=== PATIENT | female | born 1955 | race American Indian/Alaskan Native ===

== ENCOUNTER 2016-11-29 20:27 | Inpatient (IN) | payer MEDICARE, BC ==
[2016-11-29 20:27] VITALS: BMI 34.8
--- NOTE | 2016-11-29 21:10 | ED PDOC ---
Arrival/HPI - General Chief Complaint: Trauma Time Seen by Provider: 11/29/16 20:35 - History of Present Illness Narrative History of Present Illness (Text): 61 year old female with a past medical history of hypertension, dyslipidemia, stroke with right hemiparesis on Coumadin (5 mg a day) who [place] via [place] [facility] out of bed. She was sitting on the edge of the bed, reaching for her shoes and tumbled to the ground and fell on her right arm and face planted. She denies any LOC, headache, laceration, or new neuorologic deficits. She complains of pain in her right arm and right frontal temporal region, severity scaled 9/10 in severity, not taken anything for itdenies any headache, nausea, or vomiting after the fall. She denies any visual disturbances or visible lesions. 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) - HEENT Hx HEENT Disorder: No - Renal Hx Renal Disorder: No - Endocrine/Metabolic Hx Endocrine Disorders: No - Hematological/Oncological Hx Blood Transfusions: No Hx Blood Transfusion Reaction: No - Integumentary Hx Dermatological Disorder: No - Musculoskeletal/Rheumatological Hx Musculoskeletal Disorders: Yes - Gastrointestinal Hx Gastrointestinal Disorders: No (constipation uses laxatives) - Genitourinary/Gynecological Hx Genitourinary Disorders: No Other/Comment: uses a bedside commode at home and the bathroom, but uses pads on her bed at night because it takes her a long time to get up and her leg brace on, sometimes she doesn't make it to the bathroom - Psychiatric Hx Emotional Abuse: No Hx Physical Abuse: No Hx Substance Use: No - Surgical History Hx Cholecystectomy: Yes Hx Hysterectomy: Yes - Anesthesia Hx Anesthesia Reactions: No Hx Malignant Hyperthermia: No - Suicidal Assessment Feels Threatened In Home Enviroment: No Family/Social History Family/Social History: No Known Family HX, Unknown Family HX Smoking Status: Never Smoked Hx Alcohol Use: No Hx Substance Use: No Hx Substance Use Treatment: No Allergies/Home Meds Allergies/Adverse Reactions: Allergies Penicillins Allergy (Severe, Verified 04/28/15 11:13) ANAPHYLAXIS Home Medications: Home Meds Medication Instructions Recorded Confirmed Calcium Carbonate [Caltrate 600] 600 mg PO DAILY 07/13/11 11/30/16 Celecoxib [CeleBREX] 200 mg PO DAILY 12/06/15 11/30/16 Clopidogrel [Plavix] 75 mg PO DAILY 12/06/15 11/30/16 Digoxin [Lanoxin] 0.25 mg PO DAILY 12/06/15 11/30/16 Diltiazem HCl [Tiazac] 120 mg PO DAILY 12/06/15 11/30/16 Gabapentin [Neurontin] 600 mg PO QID 12/06/15 11/30/16 Metoprolol Succinate [Metoprolol 100 mg PO DAILY 12/06/15 11/30/16 Succinate Xl] Oxycodone HCl [Oxycontin] 30 mg PO Q8 12/06/15 11/30/16 Phenytoin Sodium Extended 100 mg PO TID 12/06/15 11/30/16 [Phenytoin Sodium Extended] Aspirin [Aspirin Chewable] 81 mg PO DAILY 11/30/16 11/30/16 Cranberry Fruit Extract/Vit C [Azo 1 each PO DAILY 11/30/16 11/30/16 Cranberry Softgel] Docusate Sodium [Stool Softener] 50 mg PO DAILY 11/30/16 11/30/16 Folic Acid 1 mg PO DAILY 11/30/16 11/30/16 Furosemide [Lasix] 40 mg PO DAILY 11/30/16 11/30/16 Multivitamin/Iron/Folic Acid 1 each PO DAILY 11/30/16 11/30/16 [Centrum Women Tablet] Naloxegol Oxalate [Movantik] 25 mg PO DAILY 11/30/16 11/30/16 Oxycodone HCl/Acetaminophen 1 each PO Q6 PRN 11/30/16 11/30/16 [Percocet 10-325 mg Tablet] Promethazine [Phenergan Syrup] 1 tbs PO TID PRN 11/30/16 11/30/16 Warfarin [Coumadin] 0.5 mg PO DAILY 11/30/16 11/30/16 Warfarin [Coumadin] 4 mg PO DAILY 11/30/16 11/30/16 Review of Systems - Review of Systems Constitutional: absent: Fatigue, Weight Change, Fevers Eyes: absent: Vision Changes, Photophobia, Eye Pain ENT: absent: Hearing Changes, Sore Throat Respiratory: SOB. absent: Cough, Sputum Cardiovascular: absent: Chest Pain, Palpitations Gastrointestinal: absent: Nausea, Vomiting Genitourinary Female: absent: Dysuria Musculoskeletal: Other (right humeral pain, right forearm pain, right hip pain) Skin: absent: Rash, Skin Lesions, Laceration Neurological: absent: Headache, Dizziness, Focal Weakness, Speech Changes Endocrine: absent: Diaphoresis, Polyuria, Polydipsia Hemo/Lymphatic: absent: Easy Bleeding, Easy Bruising Psychiatric: absent: Anxiety, Depression Physical Exam Vital Signs Temp Pulse Resp BP Pulse Ox 11/30/16 11:22 63 125/69 11/30/16 11:03 125/69 11/30/16 11:00 63 19 125/69 94 L 11/30/16 09:53 60 19 144/56 L 91 L 11/30/16 08:00 59 L 16 118/65 95 11/30/16 04:00 85 16 122/76 99 11/30/16 00:26 64 18 122/71 98 11/29/16 21:15 98.1 F 64 17 132/76 96 Temperature: Afebrile Blood Pressure: Normal Pulse: Regular Respiratory Rate: Normal Appearance: Positive for: Well-Appearing, Non-Toxic Pain Distress: Moderate Mental Status: Positive for: Alert and Oriented X 3 - Systems Exam Head: Present: Atraumatic, Normocephalic Pupils: Present: PERRL Extroacular Muscles: Present: EOMI Conjunctiva: Present: Normal Mouth: Present: Moist Mucous Membranes Pharnyx: Present: Normal, Other (uvula and tongue midline without fasciculations ) Neck: Present: Paraspinal Tenderness, Trachea Midline. No: MIDLINE TENDERNESS Respiratory/Chest: Present: Good Air Exchange, Wheezes. No: Respiratory Distress, Accessory Muscle Use Cardiovascular: Present: Regular Rate and Rhythm, Normal S1, S2 Abdomen: Present: Normal Bowel Sounds. No: Tenderness, Distention Back: Present: Normal Inspection Upper Extremity: Present: Other (right arm contracture, right humerus extremely tender to palpation and limited ROM testing due to pain) Lower Extremity: Present: Other (right leg in contracture) Neurological: Present: CN II-XII Intact, Speech Normal Skin: Present: Warm, Dry, Normal Color Psychiatric: Present: Alert, Oriented x 3, Normal Insight, Normal Concentration Medical Decision Making ED Course and Treatment: Patient received from EMS. Patient placed in right arm sling. CT head/cervical spine without contrast, right humerus, right forearm, and right hip and pelvis radiographs ordered. 11/29/16 22:06 CT head without contrast FINDINGS: Brain: No acute intracranial hemorrhage. Decreased attenuation is identified within the distribution of the left middle cerebral artery, findings consistent with prior cerebral infarction, unchanged from 01/27/2015 examination. Otherwise age-appropriate periventricular white matter disease. No edema. Ventricles: Extra-vacuo enlargement of the adjacent left lateral ventricle. Otherwise age-appropriate ventriculomegaly. Bones: No acute displaced fracture. Sinuses: Air-fluid level within the left sphenoid sinus. Mucoperiosteal thickening within the bilateral ethmoid sinuses. Mastoid air cells: Unremarkable as visualized. No mastoid effusion. IMPRESSION: No acute intracranial hemorrhage, or suspicious mass effect. Findings consistent with prior cerebral infarction. Inflammatory sinus disease. 11/30/16 00:42 CT cervical spine without contrast: FINDINGS: Vertebrae: No acute fracture. Alignment: Straightening and slight reversal of the normal curvature of the cervical spine, possibly muscular in origin. Discs/spinal canal/neural foramina: No acute findings. Soft tissues: Symmetric Lung apices: The visualized lung apices are clear. IMPRESSION: No acute fracture. Radiographs of the right humerus, right forearm, right hip and pelvis were negative for acute fracture. CT of right extremity: FINDINGS: There are extensive arthritic and degenerative changes in the right shoulder. Osseous hypertrophy with osteophyte and spur formation are present in the humeral head. There are no fractures of the humerus identified. There is extensive heterogeneity and irregularity of the glenoid surface with cyst formation. There is discontinuity of the inferior most aspect of the glenoid however there appears to be callus formation suggesting this is chronic. The visualized portions of the clavicle are intact. There are no rib fractures identified. Consolidation in the right lung incompletely imaged. IMPRESSION: Extensive arthritic and degenerative changes as described above however no definite acute fracture identified. If there is concern for tendon injury, followup MRI could be performed. 11/30/16 03:[address] Keaton Rick. Dr. Rick agrees with obtaining a physical therapy consult. 11/30/16 06:32 - Lab Interpretations Lab Results: 11/29/16 23:12 11/29/16 23:12 Lab Results 11/30/16 07:00: Digoxin 0.7 L 11/30/16 07:00: NT-Pro-B Natriuret Pep 3790 H 11/29/16 23:12: Sodium 141, Potassium 4.3, Chloride 106, Carbon Dioxide 27, Anion Gap 12, BUN 26 H, Creatinine 0.9, Est GFR ( Amer) > 60, Est GFR ( Non-Af Amer) > 60, Random Glucose 104, Calcium 8.4, Total Bilirubin 0.3, AST 32 , ALT 34, Alkaline Phosphatase 212 H, Total Protein 7.5, Albumin 3.9, Globulin 3.6, Albumin/Globulin Ratio 1.1 11/29/16 23:12: WBC 6.7 D, RBC 4.12, Hgb 11.4 L, Hct 35.6 L, MCV 86.4, MCH 27.7 , MCHC 32.0, RDW 16.9 H, Plt Count 210, MPV 9.9, Gran % 69.9 H, Lymph % (Auto) 21.6 L, [place] % (Auto) 7.5 H, Eos % (Auto) 0.9 L, Baso % (Auto) 0.1, Gran # 4.69 , Lymph # 1.5, [place] # 0.5, Eos # 0.1, Baso # 0.01 11/29/16 23:12: PT 34.7 H*, INR 3.21 H, APTT 52.0 H - RAD Interpretation Radiology Orders: 11/29/16 21:21 HUMERUS RIGHT [RAD] Stat 11/29/16 21:22 FOREARM RIGHT [RAD] Stat Hip Right [HIP MIN 2V W/ PELVIS RT] [RAD] Stat 11/29/16 21:24 CERVICAL SPINE W/O CONTRAST [CT] Stat HEAD W/O CONTRAST [CT] Stat 11/30/16 01:02 SHOULDER RIGHT [RAD] Stat 11/30/16 01:58 EXT UPPER W/O CONTRAST RIGHT [CT] Stat 11/30/16 03:24 X-RAY [CHEST PORTABLE] [RAD] Stat - Medication Orders Current Medication Orders: Atorvastatin Calcium (Lipitor) 10 mg PO DAILY [facility] Last Admin: 12/01/16 09:21 Dose: 10 mg Calcium Carbonate (Caltrate) 600 mg PO DAILY [facility] Last Admin: 12/01/16 09:21 Dose: 600 mg Clopidogrel Bisulfate (Plavix) 75 mg PO DAILY [facility] Last Admin: 12/01/16 09:20 Dose: 75 mg Digoxin (Lanoxin) 0.25 mg PO DAILY [facility] Last Admin: 12/01/16 09:21 Dose: 0.25 mg MAR Apical Pulse Rate Document 12/01/16 09:21 [facility] [place]Rec: 12/01/16 09:21 [id number] Apical Pulse Rate Apical Pulse Rate (60-90 beats/min) 60 Diltiazem HCl (Cardizem Cd) 120 mg PO DAILY [facility] Last Admin: 12/01/16 09:20 Dose: 120 mg MAR Pulse and Blood Pressure Document 12/01/16 09:20 [facility] [place]Rec: 12/01/16 09:20 [id number]) Blood Pressure Blood Pressure (100/60-150/90) 135/76 Furosemide (Lasix) 40 mg IVP DAILY [facility] Last Admin: 12/01/16 09:22 Dose: 40 mg MAR Blood Pressure Document 12/01/16 09:22 [facility] [place]Rec: 12/01/16 09:22 [id number] Blood Pressure Blood Pressure (100/60-150/90) 135/76 IVP Administration Document 12/01/16 09:22 [facility] [place]Rec: 12/01/16 09:22 [id number] Charges for Administration # of IVP Administrations 1 Gabapentin (Neurontin) 600 mg PO QID [facility] PRN Reason: Protocol Last Admin: 12/01/16 09:19 Dose: 600 mg Behavioural Document 12/01/16 09:19 [facility] [place]Rec: 12/01/16 09:19 [id number] Maintenance Maintenance Dose Yes Nonmedicinal Nonmedicinal Interventions Therapeutic Communication Metoprolol Succinate (Toprol Xl) 100 mg PO DAILY [facility] Last Admin: 12/01/16 09:20 Dose: 100 mg MAR Pulse and Blood Pressure Document 12/01/16 09:20 [facility] [place]Rec: 12/01/16 09:20 [id number] Blood Pressure Blood Pressure (100/60-150/90) 135/76 Non-Formulary Medication (Celecoxib [Celebrex]) 200 mg PO BID [facility] Last Admin: 12/01/16 09:21 Dose: Phenytoin Sodium (Dilantin) 100 mg PO TID [facility] Last Admin: 12/01/16 09:20 Dose: 100 mg Tramadol HCl (Ultram) 50 mg PO Q8 PRN PRN Reason: Pain, severe (8-10) Last Admin: 12/01/16 09:20 Dose: 50 mg MAR Pain Assessment Document 12/01/16 09:20 [facility] [place]Rec: 12/01/16 09:20 [id number] Pain Reassessment Is this a pain reassessment? No Sleep Is patient sleeping during reassessment? No Presence of Pain Presence of Pain Yes Pain Scale Used Pain Scale Used Numeric Location Pain Location Body Site Generalized Description Intensity of Pain at present 6 Pain Behavior Moaning Guarding Aggravating Factors None Alleviating Factors/Management Medication Techniques Alleviating Factors Medication Warfarin Sodium (Coumadin) 3 mg PO 1800 [facility] PRN Reason: Protocol Last Admin: 11/30/16 17:56 Dose: 3 mg Discontinued Medications Albuterol/Ipratropium (Duoneb 3 Mg/0.5 Mg (3 Ml) Ud) 3 ml IH STAT STA Stop: 11/29/16 21:27 Last Admin: 11/29/16 22:26 Dose: 3 ml Hydromorphone HCl (Dilaudid) 1 mg IVP STAT STA Stop: 11/29/16 21:19 Last Admin: 11/29/16 22:26 Dose: 1 mg MAR Pain Assessment Document 11/29/16 22:26 [facility] (Rec: 11/29/16 22:26 [id number] Pain Reassessment Is this a pain reassessment? Yes Sleep Is patient sleeping during reassessment? No Presence of Pain Presence of Pain Yes Pain Scale Used Pain Scale Used Numeric Location Left, Right or Bilateral Right Pain Location Body Site Arm Hip Description Description Constant Intensity of Pain at present 10 IVP Administration Document 11/29/16 22:26 [facility] (Rec: 11/29/16 22:26 [id number]) Charges for Administration # of IVP Administrations 1 Ketorolac Tromethamine (Toradol) 15 mg IVP STAT STA Stop: 11/30/16 20:48 Last Admin: 11/30/16 21:12 Dose: 15 mg MAR Pain Assessment Document 11/30/16 21:12 [facility] (Rec: 11/30/16 21:13 [id number] Pain Reassessment Is this a pain reassessment? Yes Sleep Is patient sleeping during reassessment? No Presence of Pain Presence of Pain Yes Pain Scale Used Pain Scale Used Numeric Location Left, Right or Bilateral Right Pain Location Body Site Arm Description Description Intermittent Intensity of Pain at present 7 Pain Behavior Moaning Facial Grimacing Aggravating Factors Changing Position Alleviating Factors/Management Medication Techniques Alleviating Factors Medication Effects of Pain discomfort IVP Administration Document 11/30/16 21:12 [facility] (Rec: 11/30/16 21:13 [id number] Charges for Administration # of IVP Administrations 1 Ondansetron HCl (Zofran Inj) 4 mg IVP STAT STA Stop: 11/29/16 21:29 Last Admin: 11/29/16 22:26 Dose: 4 mg IVP Administration Document 11/29/16 22:26 [facility] (Rec: 11/29/16 22:26 [facility] [id number]) Charges for Administration # of IVP Administrations 1 Pneumococcal Polyvalent Vaccine (Pneumovax 23 Vaccine) 0.5 ml IM .ONCE ONE Stop: 11/30/16 14:18 Warfarin Sodium (Coumadin) 3 mg PO DAILY [facility] PRN Reason: Protocol Disposition/Present on Arrival - Present on Arrival Any Indicators Present on Arrival: Yes History of DVT/PE: Yes History of Uncontrolled Diabetes: No Urinary Catheter: No History of Decub. Ulcer: No History Surgical Site Infection Following: None - Disposition Have Diagnosis and Disposition been Completed?: Yes Diagnosis: Decreased ambulation status Disposition: HOSPITALIZED Disposition Time: 05:00 Patient Problems: Current Active Problems Problem Status Onset Decreased ambulation status Acute Condition: FAIR
[2016-11-29] MEDS ORDERED: HYDROmorphone 1 mg/ml ISec IVP STA (21:18)
[2016-11-29] MEDS ORDERED: Albuterol-Ipratrop 3 mg / 0.5 (3 ml) UD IH STA (21:26)
[2016-11-29 23:20] LABS: BASO # 0.01 K/mm3 (0.0-2.0); BASO % 0.1 % (0.0-3.0); EOS # 0.1 (0.0-0.7); EOS % 0.9 % (1.5-5.0); GRAN # 4.69 (1.4-6.5); GRAN % 69.9 % (50.0-68.0); HEMATOCRIT 35.6 % (36.0-48.0); LYMPH # 1.5 (1.2-3.4); LYMPH % 21.6 % (22.0-35.0); MEAN CELL VOLUME 86.4 fl (80.0-105.0); MEAN CORPUSCULAR HEMOGLOBIN 27.7 pg (25.0-35.0); MEAN PLATELET VOLUME 9.9 fl (7.0-11.0); MONO # 0.5 (0.1-0.6); MONO % 7.5 % (1.0-6.0); RED CELL DISTRIBUTION WIDTH 16.9 % (11.5-14.5); WHITE BLOOD COUNT 6.7 10^3/ul (4.5-11.0)
[2016-11-29 23:26] LABS: ALB/GLOB RATIO 1.1 (1.1-1.8); ALKALINE PHOSPHATASE 212 U/L (38-126); ALT/SGPT 34 U/L (7-56); AST/SGOT 32 U/L (14-36); BILIRUBIN,TOTAL 0.3 mg/dL (0.2-1.3); BLOOD UREA NITROGEN 26 mg/dL (7-21); CALCIUM 8.4 mg/dL (8.4-10.5); CARBON DIOXIDE 27 mmol/L (21-33); CHLORIDE 106 mmol/L (98-107); GFR AFRICAN-AMERICAN > 60; GLUCOSE,RANDOM 104 mg/dL (70-110); POTASSIUM 4.3 mmol/L (3.6-5.0); SODIUM 141 mmol/L (132-148); TOTAL PROTEIN 7.5 g/dL (5.8-8.3)
[2016-11-29 23:31] LABS: INR 3.21 (0.93-1.08)
--- NOTE | 2016-11-30 00:04 | CT ---
EXAM: CT Cervical Spine Without Intravenous Contrast CLINICAL HISTORY: 61 years old, female; Injury or trauma; Fall; Initial encounter; Concussion /head injury; Additional info: Trauma/pain TECHNIQUE: Axial computed tomography images of the cervical spine without intravenous contrast. All CT scans at this facility use one or more dose reduction techniques, viz.: automated exposure control; ma/kV adjustment per patient size (including targeted exams where dose is matched to indication; i.e. head); or iterative reconstruction technique. Coronal and sagittal reformatted images were created and reviewed. COMPARISON: No relevant prior studies available. FINDINGS: Vertebrae: No acute fracture. Alignment: Straightening and slight reversal of the normal curvature of the cervical spine, possibly muscular in origin. Discs/spinal canal/neural foramina: No acute findings. Soft tissues: Symmetric Lung apices: The visualized lung apices are clear. IMPRESSION: No acute fracture.
--- NOTE | 2016-11-30 00:07 | CT ---
EXAM: CT Head Without Intravenous Contrast CLINICAL HISTORY: 61 years old, female; Injury or trauma; Fall; Initial encounter; Concussion / head injury; Additional info: Fall/trauma TECHNIQUE: Axial computed tomography images of the head/brain without intravenous contrast. All CT scans at this facility use one or more dose reduction techniques, viz.: automated exposure control; ma/kV adjustment per patient size (including targeted exams where dose is matched to indication; i.e. head); or iterative reconstruction technique. COMPARISON: CT - HEAD W/O CONTRAST 01/27/2015 5:42:17 AM FINDINGS: Brain: No acute intracranial hemorrhage. Decreased attenuation is identified within the distribution of the left middle cerebral artery, findings consistent with prior cerebral infarction, unchanged from 01/27/2015 examination. Otherwise age-appropriate periventricular white matter disease. No edema. Ventricles: Extra-vacuo enlargement of the adjacent left lateral ventricle. Otherwise age-appropriate ventriculomegaly. Bones: No acute displaced fracture. Sinuses: Air-fluid level within the left sphenoid sinus. Mucoperiosteal thickening within the bilateral ethmoid sinuses. Mastoid air cells: Unremarkable as visualized. No mastoid effusion. IMPRESSION: No acute intracranial hemorrhage, or suspicious mass effect. Findings consistent with prior cerebral infarction. Inflammatory sinus disease.
--- NOTE | 2016-11-30 03:21 | CT ---
EXAM: CT Right Upper Extremity Without Intravenous Contrast, Shoulder EXAM DATE/TIME: 11/30/2016 1:58 AM CLINICAL HISTORY: 61 years old, female; Injury or trauma; Fall; Initial encounter; Sprain or strain; Shoulder; Right; Additional info: Right shoulder TECHNIQUE: Axial computed tomography images of the right shoulder without intravenous contrast. All CT scans at this facility use one or more dose reduction techniques, viz.: automated exposure control; ma/kV adjustment per patient size (including targeted exams where dose is matched to indication; i.e. head); or iterative reconstruction technique. Coronal and sagittal reformatted images were created and reviewed. COMPARISON: DX - FOREARM RIGHT 11/29/2016 11:49:24 PM FINDINGS: There are extensive arthritic and degenerative changes in the right shoulder. Osseous hypertrophy with osteophyte and spur formation are present in the humeral head. There are no fractures of the humerus identified. There is extensive heterogeneity and irregularity of the glenoid surface with cyst formation. There is discontinuity of the inferior most aspect of the glenoid however there appears to be callus formation suggesting this is chronic. The visualized portions of the clavicle are intact. There are no rib fractures identified. Consolidation in the right lung incompletely imaged. IMPRESSION: Extensive arthritic and degenerative changes as described above however no definite acute fracture identified. If there is concern for tendon injury, followup MRI could be performed.
--- NOTE | 2016-11-30 07:29 | ED PDOC ---
Physical Exam Vital Signs Reviewed: Yes Vital Signs Temp Pulse Resp BP Pulse Ox 11/30/16 09:53 60 19 144/56 L 91 L 11/30/16 08:00 59 L 16 118/65 95 11/30/16 04:00 85 16 122/76 99 11/30/16 00:26 64 18 122/71 98 11/29/16 21:15 98.1 F 64 17 132/76 96 Temperature: Afebrile Blood Pressure: Normal Pulse: Regular Respiratory Rate: Normal Medical Decision Making ED Course and Treatment: 11/30/16 07:28 Patient endorsed to me by Dr. Adams at 07:00, pending PT consult. Patient presented for evaluation after mechanical fall. 11/30/16 08:[address] Rick at bedside, states to await PT and discharge home if patient is cleared. 11/30/16 09:38 Patient failed PT evaluation, will admit for further management. Discussed with Dr. Rick, who agrees with plan. Report Date : 11/30/2016 00:04:00 EXAM: CT Cervical Spine Without Intravenous Contrast Dictator : Irasema Louise MD IMPRESSION: No acute fracture. Report Date : 11/30/2016 00:07:00 EXAM: CT Head Without Intravenous Contrast Dictator : Irasema Louise MD IMPRESSION: No acute intracranial hemorrhage, or suspicious mass effect. Findings consistent with prior cerebral infarction. Inflammatory sinus disease. Report Date : 11/30/2016 03:20:00 EXAM: CT Right Upper Extremity Without Intravenous Contrast, Shoulder Dictator : Radha Ernst MD IMPRESSION: Extensive arthritic and degenerative changes as described above however no definite acute fracture identified. If there is concern for tendon injury, followup MRI could be performed. Report Date : 11/30/2016 08:21:36 Procedure: Chest xray Dictator : Esdras Gilliam MD IMPRESSION: No active disease. Report Date : 11/30/2016 08:23:00 PROCEDURE: Radiographs of the Right Shoulder Dictator : Esdras Gilliam MD IMPRESSION: Glenohumeral osteoarthritis. No evidence of dislocation. Limited examination. Report Date : 11/30/2016 08:25:56 PROCEDURE: Radiographs of the Right Forearm Dictator : Esdras Gilliam MD IMPRESSION: Unremarkable radiographs of the right forearm. Report Date : 11/30/2016 08:26:38 PROCEDURE: Radiographs of the right humerus. Dictator : Esdras Gilliam MD IMPRESSION: No acute fracture. Glenohumeral osteoarthritis. Report Date : 11/30/2016 08:28:57 PROCEDURE: Right Hip Radiographs. Dictator : Esdras Gilliam MD IMPRESSION: No acute fracture. Osteoarthritis peer - Lab Interpretations Lab Results: 11/29/16 23:12 11/29/16 23:12 Lab Results 11/30/16 07:00: Digoxin 0.7 L 11/30/16 07:00: NT-Pro-B Natriuret Pep 3790 H 11/29/16 23:12: Sodium 141, Potassium 4.3, Chloride 106, Carbon Dioxide 27, Anion Gap 12, BUN 26 H, Creatinine 0.9, Est GFR ( Amer) > 60, Est GFR ( Non-Af Amer) > 60, Random Glucose 104, Calcium 8.4, Total Bilirubin 0.3, AST 32 , ALT 34, Alkaline Phosphatase 212 H, Total Protein 7.5, Albumin 3.9, Globulin 3.6, Albumin/Globulin Ratio 1.1 11/29/16 23:12: WBC 6.7 D, RBC 4.12, Hgb 11.4 L, Hct 35.6 L, MCV 86.4, MCH 27.7 , MCHC 32.0, RDW 16.9 H, Plt Count 210, MPV 9.9, Gran % 69.9 H, Lymph % (Auto) 21.6 L, [place] % (Auto) 7.5 H, Eos % (Auto) 0.9 L, Baso % (Auto) 0.1, Gran # 4.69 , Lymph # 1.5, [place] # 0.5, Eos # 0.1, Baso # 0.01 11/29/16 23:12: PT 34.7 H*, INR 3.21 H, APTT 52.0 H - RAD Interpretation Radiology Orders: 11/29/16 21:21 HUMERUS RIGHT [RAD] Stat 11/29/16 21:22 FOREARM RIGHT [RAD] Stat Hip Right [HIP MIN 2V W/ PELVIS RT] [RAD] Stat 11/29/16 21:24 CERVICAL SPINE W/O CONTRAST [CT] Stat HEAD W/O CONTRAST [CT] Stat 11/30/16 01:02 SHOULDER RIGHT [RAD] Stat 11/30/16 01:58 EXT UPPER W/O CONTRAST RIGHT [CT] Stat 11/30/16 03:24 X-RAY [CHEST PORTABLE] [RAD] Stat - Medication Orders Current Medication Orders: Atorvastatin Calcium (Lipitor) 10 mg PO DAILY [facility] Calcium Carbonate (Caltrate) 600 mg PO DAILY [facility] Clopidogrel Bisulfate (Plavix) 75 mg PO DAILY [facility] Digoxin (Lanoxin) 0.25 mg PO DAILY [facility] Diltiazem HCl (Cardizem Cd) 120 mg PO DAILY [facility] Furosemide (Lasix) 40 mg IVP DAILY [facility] Gabapentin (Neurontin) 600 mg PO QID [facility] PRN Reason: Protocol Metoprolol Succinate (Toprol Xl) 100 mg PO DAILY [facility] Non-Formulary Medication (Celecoxib [Celebrex]) 200 mg PO BID [facility] Phenytoin Sodium (Dilantin) 100 mg PO TID [facility] Warfarin Sodium (Coumadin) 3 mg PO DAILY [facility] PRN Reason: Protocol Discontinued Medications Albuterol/Ipratropium (Duoneb 3 Mg/0.5 Mg (3 Ml) Ud) 3 ml IH STAT STA Stop: 11/29/16 21:27 Last Admin: 11/29/16 22:26 Dose: 3 ml Hydromorphone HCl (Dilaudid) 1 mg IVP STAT STA Stop: 11/29/16 21:19 Last Admin: 11/29/16: Dose: 1 mg MAR Pain Assessment Document 11/29/16 22:26 [facility] (Rec: 11/29/16 22:26 [id number][facility] Pain Reassessment Is this a pain reassessment? Yes Sleep Is patient sleeping during reassessment? No Presence of Pain Presence of Pain Yes Pain Scale Used Pain Scale Used Numeric Location Left, Right or Bilateral Right Pain Location Body Site Arm Hip Description Description Constant Intensity of Pain at present 10 IVP Administration Document 11/29/16 22:26 [facility] (Rec: 11/29/16 22:26 [id number]) Charges for Administration # of IVP Administrations 1 Ondansetron HCl (Zofran Inj) 4 mg IVP STAT STA Stop: 11/29/16 21:29 Last Admin: 11/29/16 22:26 Dose: 4 mg IVP Administration Document 11/29/16 22:26 [facility] (Rec: 11/29/16 22:26 [id number]) Charges for Administration # of IVP Administrations 1 - Scribe Statement The provider has reviewed the documentation as recorded by the Scribe Tamika Browning Provider Scribe Attestation: All medical record entries made by the Scribe were at my direction and personally dictated by me. I have reviewed the chart and agree that the record accurately reflects my personal performance of the history, physical exam, medical decision making, and the department course for this patient. I have also personally directed, reviewed, and agree with the discharge instructions and disposition. Disposition/Present on Arrival - Present on Arrival Any Indicators Present on Arrival: Yes History of DVT/PE: Yes History of Uncontrolled Diabetes: No Urinary Catheter: No History of Decub. Ulcer: No History Surgical Site Infection Following: None - Disposition Have Diagnosis and Disposition been Completed?: Yes Diagnosis: Decreased ambulation status Disposition Time: 09:38 Patient Plan: Admission Patient Problems: Current Active Problems Problem Status Onset Decreased ambulation status Acute Condition: FAIR
--- NOTE | 2016-11-30 08:23 | RAD ---
HISTORY: possible pneumonia COMPARISON: 04/28/2015 FINDINGS: LUNGS: No active pulmonary disease. PLEURA: No significant pleural effusion identified, no pneumothorax apparent. CARDIOVASCULAR: Normal. OSSEOUS STRUCTURES: No significant abnormalities. VISUALIZED UPPER ABDOMEN: Normal. OTHER FINDINGS: None. IMPRESSION: No active disease.
--- NOTE | 2016-11-30 08:24 | RAD ---
PROCEDURE: Radiographs of the Right Shoulder HISTORY: dislocation, need two view COMPARISON: No prior. FINDINGS: BONES: Limited examination due to patient inability to position [place] for examination. No evidence fracture. JOINTS: Glenohumeral osteoarthritis. Acromioclavicular articulation appears intact. SOFT TISSUES: Normal. OTHER FINDINGS: None. IMPRESSION: Glenohumeral osteoarthritis. No evidence of dislocation. Limited examination.
--- NOTE | 2016-11-30 08:27 | RAD ---
PROCEDURE: Radiographs of the Right Forearm HISTORY: pain/trauma COMPARISON: None available. TECHNIQUE: Frontal and lateral views obtained. FINDINGS: BONES: No fracture or destructive lesion. JOINT SPACES: Unremarkable. OTHER FINDINGS: None. IMPRESSION: Unremarkable radiographs of the right forearm.
--- NOTE | 2016-11-30 08:28 | RAD ---
PROCEDURE: Radiographs of the right humerus. HISTORY: pain COMPARISON: None. FINDINGS: BONES: Normal. No fracture or focal lesion. Note is made of severe glenohumeral osteoarthritis. SOFT TISSUES: Normal. OTHER FINDINGS: None. IMPRESSION: No acute fracture. Glenohumeral osteoarthritis.
--- NOTE | 2016-11-30 08:30 | RAD ---
PROCEDURE: Right Hip Radiographs. HISTORY: pain/trauma COMPARISON: None. FINDINGS: BONES: No acute fracture. Examination limited by patient's inability to fully cooperate for positioning. JOINTS: Superior osteoarthritis of the right is noted. SOFT TISSUES: Normal. OTHER FINDINGS: None. IMPRESSION: No acute fracture. Osteoarthritis peer
[2016-11-30] MEDS: Digoxin 250 mcg (0.25 mg) Tab PO SCH (11:04)
[2016-11-30] MEDS: diltiaZEM 120 mg/24 Hours CD Cap PO SCH (11:22)
[2016-11-30] MEDS: Metoprolol Succinate 100 mg XL Tab PO SCH (11:22)
[2016-11-30] MEDS: Non Formulary Medication (Celecoxib [Celebrex] 200 MG) PO SCH ×2 (13:45→17:55)
[2016-11-30] MEDS ORDERED: Pneumococcal 23-Valent Vaccine IM ONE (14:17)
--- NOTE | 2016-11-30 14:17 | CON ---
DATE: 11/30/2016 CARDIOLOGY CONSULTATION HISTORY OF PRESENT ILLNESS: The patient is a 61-year-old woman who lost her balance when trying to put on her shoes and fell to the ground. She denies chest pain. She denies shortness of breath. She denies loss of consciousness. 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 She denies chest pain, denies shortness of breath. SOCIAL HISTORY: The patient does not smoke. REVIEW OF SYSTEMS: A 14-point review of systems was reviewed. No cardiac symptomatology is noted. PHYSICAL EXAMINATION: VITAL SIGNS: Blood pressure is 125/70 and the heart rate is in the 60s. NECK: Negative JVD. LUNGS: Without rales. HEART: Reveals S1 and S2. EXTREMITIES: Without edema. LABORATORY DATA: Hemoglobin is 11.4. Chemistries, BUN and creatinine are unremarkable. The troponin was not done. IMPRESSION 1. Status post mechanical fall. 2. History of coronary artery disease. 3. History of abnormal electrocardiogram. 4. History of hypercholesterolemia. 5. Question history of atrial fibrillation. PLAN: Given these findings, there is no active cardiac issues at this time. However, we will obtain an echocardiogram to evaluate her LV function. Esdras Ortiz MD
--- NOTE | 2016-11-30 21:32 | CP.PCM.PN ---
Subjective - Date & Time of Evaluation Date of Evaluation: 11/30/16 Time of Evaluation: 21:29 - Subjective Subjective: Patient was seen at bedside because she had pain in right arm.She received Ultram at about 4 PM which did not help her. Has no other complaints now. Medical record was reviewed. This 61 year old woman was admitted post mechanical fall, right shoulder arthritis. PMH of tachycardia, CAD, ? history of atrial fibrillation, stroke , right hemiparesis, abnormal EKG consistent with old inferior wall infarction, obesity. Objective - Vital Signs/Intake and Output Vital Signs (last 24 hours): Temp Pulse Resp BP Pulse Ox 97.4 F L 56 L 19 113/70 98 11/30/16 16:00 11/30/16 16:00 11/30/16 16:00 11/30/16 16:00 11/30/16 16:00 Intake and Output: 11/30/16 12/01/16 18:59 06:59 Output Total 900 Balance -900 - Medications Medications: Current Medications Atorvastatin Calcium (Lipitor) 10 mg PO DAILY [facility] Last Admin: 11/30/16 11:03 Dose: 10 mg Calcium Carbonate (Caltrate) 600 mg PO DAILY [facility] Last Admin: 11/30/16 17:55 Dose: Not Given Clopidogrel Bisulfate (Plavix) 75 mg PO DAILY [facility] Last Admin: 11/30/16 11:03 Dose: 75 mg Digoxin (Lanoxin) 0.25 mg PO DAILY [facility] Last Admin: 11/30/16 11:04 Dose: 0.25 mg Diltiazem HCl (Cardizem Cd) 120 mg PO DAILY [facility] Last Admin: 11/30/16 11:22 Dose: 120 mg Furosemide (Lasix) 40 mg IVP DAILY [facility] Last Admin: 11/30/16 11:03 Dose: 40 mg Gabapentin (Neurontin) 600 mg PO QID [facility] PRN Reason: Protocol Last Admin: 11/30/16 17:54 Dose: 600 mg Metoprolol Succinate (Toprol Xl) 100 mg PO DAILY [facility] Last Admin: 11/30/16 11:22 Dose: 100 mg Non-Formulary Medication (Celecoxib [Celebrex]) 200 mg PO BID [facility] Last Admin: 11/30/16 17:55 Dose: Not Given Phenytoin Sodium (Dilantin) 100 mg PO TID [facility] Last Admin: 11/30/16 17:54 Dose: 100 mg Tramadol HCl (Ultram) 50 mg PO Q8 PRN PRN Reason: Pain, severe (8-10) Last Admin: 11/30/16 16:15 Dose: 50 mg Warfarin Sodium (Coumadin) 3 mg PO 1800 [facility] PRN Reason: Protocol Last Admin: 11/30/16 17:56 Dose: 3 mg - Labs Labs: PT 34.7 Seconds (9.9-11.8) H* 11/29/16 23:12 INR 3.21 (0.93-1.08) H 11/29/16 23:12 APTT 52.0 Seconds (23.7-30.8) H 11/29/16 23:12 Laboratory Last Values WBC 6.7 10^3/ul (4.5-11.0) D 11/29/16 23:12 RBC 4.12 10^6/uL (3.5-6.1) 11/29/16 23:12 Hgb 11.4 g/dL (12.0-16.0) L 11/29/16 23:12 Hct 35.6 % (36.0-48.0) L 11/29/16 23:12 MCV 86.4 fl (80.0-105.0) 11/29/16 23:12 MCH 27.7 pg (25.0-35.0) 11/29/16 23:12 MCHC 32.0 g/dl (31.0-37.0) 11/29/16 23:12 RDW 16.9 % (11.5-14.5) H 11/29/16 23:12 Plt Count 210 10^3/uL (120.0-450.0) 11/29/16 23:12 MPV 9.9 fl (7.0-11.0) 11/29/16 23:12 Gran % 69.9 % (50.0-68.0) H 11/29/16 23:12 Lymph % (Auto) 21.6 % (22.0-35.0) L 11/29/16 23:12 [place] % (Auto) 7.5 % (1.0-6.0) H 11/29/16 23:12 Eos % (Auto) 0.9 % (1.5-5.0) L 11/29/16 23:12 Baso % (Auto) 0.1 % (0.0-3.0) 11/29/16 23:12 Gran # 4.69 (1.4-6.5) 11/29/16 23:12 Lymph # 1.5 (1.2-3.4) 11/29/16 23:12 [place] # 0.5 (0.1-0.6) 11/29/16 23:12 Eos # 0.1 (0.0-0.7) 11/29/16 23:12 Baso # 0.01 K/mm3 (0.0-2.0) 11/29/16 23:12 PT 34.7 Seconds (9.9-11.8) H* 11/29/16 23:12 INR 3.21 (0.93-1.08) H 11/29/16 23:12 APTT 52.0 Seconds (23.7-30.8) H 11/29/16 23:12 Sodium 141 mmol/L (132-148) 11/29/16 23:12 Potassium 4.3 mmol/L (3.6-5.0) 11/29/16 23:12 Chloride 106 mmol/L (98-107) 11/29/16 23:12 Carbon Dioxide 27 mmol/L (21-33) 11/29/16 23:12 Anion Gap 12 (10-20) 11/29/16 23:12 BUN 26 mg/dL (7-21) H 11/29/16 23:12 Creatinine 0.9 mg/dL (0.7-1.2) 11/29/16 23:12 Est GFR ( Amer) > 60 11/29/16 23:12 Est GFR (Non-Af Amer) > 60 11/29/16 23:12 Random Glucose 104 mg/dL (70-110) 11/29/16 23:12 Calcium 8.4 mg/dL (8.4-10.5) 11/29/16 23:12 Total Bilirubin 0.3 mg/dL (0.2-1.3) 11/29/16 23:12 AST 32 U/L (14-36) 11/29/16 23:12 ALT 34 U/L (7-56) 11/29/16 23:12 Alkaline Phosphatase 212 U/L (38-126) H 10/05/17 23:12 NT-Pro-B Natriuret Pep 3790 pg/mL (0-450) H 11/30/16 07:00 Total Protein 7.5 g/dL (5.8-8.3) 11/29/16 23:12 Albumin 3.9 g/dL (3.0-4.8) 11/29/16 23:12 Globulin 3.6 gm/dL 11/29/16 23:12 Albumin/Globulin Ratio 1.1 (1.1-1.8) 11/29/16 23:12 Digoxin 0.7 ng/mL (0.8-2.0) L 11/30/16 07:00 - Constitutional Appears: Well, No Acute Distress - Head Exam Head Exam: ATRAUMATIC, NORMAL INSPECTION, NORMOCEPHALIC - Eye Exam Eye Exam: Normal appearance - ENT Exam ENT Exam: Normal External Ear Exam - Neck Exam Neck Exam: Normal Inspection - Respiratory Exam Respiratory Exam: NORMAL BREATHING PATTERN - Cardiovascular Exam Cardiovascular Exam: absent: JVD - GI/Abdominal Exam GI & Abdominal Exam: absent: Distended - Rectal Exam Rectal Exam: Deferred - Exam Additional comments: Deferred. - Extremities Exam Additional comments: Right arm in sling. - Back Exam Back Exam: NORMAL INSPECTION - Neurological Exam Neurological Exam: Alert, Oriented x3 - Psychiatric Exam Psychiatric exam: Normal Affect, Normal Mood - Skin Skin Exam: Normal Color Assessment and Plan - Assessment and Plan (Free Text) Assessment: S/P mechanical fall. Right arm pain. HTN. Hx CAD. Obesity. Right shoulder arthritis. Borderline anemia. Elevated BNP. Plan: Toradol 30 mg IV stat. Continue present management.
[2016-12-01 06:36] LABS: HEMATOCRIT 34.9 % (36.0-48.0); MEAN CELL VOLUME 87.5 fl (80.0-105.0); MEAN CORPUSCULAR HEMOGLOBIN 27.1 pg (25.0-35.0); MEAN CORPUSCULAR HGB CONC 30.9 g/dl (31.0-37.0); MEAN PLATELET VOLUME 10.2 fl (7.0-11.0); RED CELL DISTRIBUTION WIDTH 16.8 % (11.5-14.5); WHITE BLOOD COUNT 4.3 10^3/ul (4.5-11.0)
[2016-12-01 06:47] LABS: INR 3.61 (0.93-1.08)
[2016-12-01 06:52] LABS: ALKALINE PHOSPHATASE 210 U/L (38-126); ALT/SGPT 29 U/L (7-56); AST/SGOT 28 U/L (14-36); BILIRUBIN,TOTAL 0.3 mg/dL (0.2-1.3); BLOOD UREA NITROGEN 24 mg/dL (7-21); CALCIUM 8.2 mg/dL (8.4-10.5); CARBON DIOXIDE 30 mmol/L (21-33); CHLORIDE 105 mmol/L (98-107); GFR AFRICAN-AMERICAN > 60; GLUCOSE,RANDOM 87 mg/dL (70-110); POTASSIUM 4.4 mmol/L (3.6-5.0); SODIUM 142 mmol/L (132-148); TOTAL PROTEIN 6.9 g/dL (5.8-8.3)
[2016-12-01] MEDS: Metoprolol Succinate 100 mg XL Tab PO SCH (09:20)
[2016-12-01] MEDS: diltiaZEM 120 mg/24 Hours CD Cap PO SCH (09:20)
[2016-12-01] MEDS: Digoxin 250 mcg (0.25 mg) Tab PO SCH (09:21)
[2016-12-01] MEDS: Non Formulary Medication (Celecoxib [Celebrex] 200 MG) PO SCH ×2 (09:21→17:00)
--- NOTE | 2016-12-01 19:19 | CP.PCM.HP ---
History of Present Illness - History of Present Illness History of Present Illness: Internal Medicine H&P: December 01, 2016 61 yo female with fall to ground when she lost her balance trying to put on her shoes. She denied any shortness of breath, loss of consciousness, or chest pain. Seen by Dr. Ortiz. Echocardiogram to be done. She makes no other complaints. PMHx: tachycardia, hypercholesterolemia, old [place] PSHx: none given Allergies: PCN Social Hx: no tobacco, EtOH, or illicit drug use Active Medications Atorvastatin Calcium (Lipitor) 10 mg PO DAILY [facility] Last Admin: 12/01/16 09:21 Dose: 10 mg Calcium Carbonate (Caltrate) 600 mg PO DAILY [facility] Last Admin: 12/01/16 09:21 Dose: 600 mg Clopidogrel Bisulfate (Plavix) 75 mg PO DAILY [facility] Last Admin: 12/01/16 09:20 Dose: 75 mg Digoxin (Lanoxin) 0.25 mg PO DAILY [facility] Last Admin: 12/01/16 09:21 Dose: 0.25 mg Diltiazem HCl (Cardizem Cd) 120 mg PO DAILY [facility] Last Admin: 12/01/16 09:20 Dose: 120 mg Furosemide (Lasix) 40 mg IVP DAILY [facility] Last Admin: 12/01/16 09:22 Dose: 40 mg Gabapentin (Neurontin) 600 mg PO QID [facility] PRN Reason: Protocol Last Admin: 12/01/16 16:44 Dose: 600 mg Metoprolol Succinate (Toprol Xl) 100 mg PO DAILY [facility] Last Admin: 12/01/16 09:20 Dose: 100 mg Non-Formulary Medication (Celecoxib [Celebrex]) 200 mg PO BID [facility] Last Admin: 12/01/16 17:00 Dose: Not Given Phenytoin Sodium (Dilantin) 100 mg PO TID [facility] Last Admin: 12/01/16 17:00 Dose: 100 mg Tramadol HCl (Ultram) 50 mg PO Q8 PRN PRN Reason: Pain, severe (8-10) Last Admin: 12/01/16 16:44 Dose: 50 mg Warfarin Sodium (Coumadin) 3 mg PO 1800 [facility] PRN Reason: Protocol Last Admin: 11/30/16 17:56 Dose: 3 mg Family Hx: none given ROS: No fevers, chills, nausea, vomiting, diarrhea, headaches, dizziness, chest pain , abdominal pain, melena, hematuria, hematemesis, hematochezia, depression, anxiety. Fall at home. Present on Admission - Present on Admission Any Indicators Present on Admission: No Past Patient History - Infectious Disease Hx of Infectious Diseases: None - Tetanus Immunizations Tetanus Immunization: Unknown - Past Social History Smoking Status: Never Smoked - CARDIAC Hx Pacemaker: No - PULMONARY Hx Respiratory Disorders: No - NEUROLOGICAL Hx Paralysis: Yes (R SIDED WEAKNESS) - HEENT Hx HEENT Problems: No - RENAL Hx Chronic Kidney Disease: No - ENDOCRINE/METABOLIC Hx Endocrine Disorders: No - HEMATOLOGICAL/ONCOLOGICAL Hx Blood Transfusions: No Hx Blood Transfusion Reaction: No - INTEGUMENTARY Hx Dermatological Problems: No - MUSCULOSKELETAL/RHEUMATOLOGICAL Hx Musculoskeletal Disorders: Yes - GASTROINTESTINAL Hx Gastrointestinal Disorders: No (constipation uses laxatives) - GENITOURINARY/GYNECOLOGICAL Hx Genitourinary Disorders: No Other/Comment: uses a bedside commode at home and the bathroom, but uses pads on her bed at night because it takes her a long time to get up and her leg brace on, sometimes she doesn't make it to the bathroom - PSYCHIATRIC Hx Emotional Abuse: No Hx Physical Abuse: No Hx Substance Use: No - SURGICAL HISTORY Hx Cholecystectomy: Yes Hx Hysterectomy: Yes - ANESTHESIA Hx Anesthesia Reactions: No Hx Malignant Hyperthermia: No Meds Allergies/Adverse Reactions: Allergies Allergy/AdvReac Type Severity Reaction Status Date / Time Penicillins Allergy Severe ANAPHYLAXIS Verified 04/28/15 11:13 Physical Exam - Constitutional Appears: Non-toxic, No Acute Distress, Chronically Ill - Head Exam Head Exam: ATRAUMATIC, NORMOCEPHALIC - Eye Exam Eye Exam: EOMI, PERRL Pupil Exam: NORMAL ACCOMODATION, PERRL - ENT Exam ENT Exam: Mucous Membranes Moist, Normal External Ear Exam, TM's Normal Bilaterally - Neck Exam Neck exam: Positive for: Full Rom, Normal Inspection - Respiratory Exam Respiratory Exam: Clear to Auscultation Bilateral, NORMAL BREATHING PATTERN. absent: Rales, Rhonchi, Wheezes - Cardiovascular Exam Cardiovascular Exam: REGULAR RHYTHM, RRR, +S1, +S2 - GI/Abdominal Exam GI & Abdominal Exam: Normal Bowel Sounds, Soft. absent: Distended, Tenderness - Extremities Exam Additional comments: right sided weakness. - Neurological Exam Neurological exam: Alert, CN II-XII Intact, Oriented x3 - Psychiatric Exam Psychiatric exam: Normal Affect, Normal Mood - Skin Skin Exam: Intact, Normal Color Results - Vital Signs Recent Vital Signs: Last Vital Signs Temp 98.6 F 12/01/16 16:00 Pulse 55 L 12/01/16 16:00 Resp 20 12/01/16 16:00 BP 123/79 12/01/16 16:00 Pulse Ox 99 12/01/16 16:00 - Labs Result Diagrams: 12/01/16 06:00 12/01/16 06:00 Labs: Laboratory Results - last 24 hr 12/01/16 12/01/16 12/01/16 06:00 06:00 06:00 WBC 4.3 L D RBC 3.99 Hgb 10.8 L Hct 34.9 L MCV 87.5 MCH 27.1 MCHC 30.9 L RDW 16.8 H Plt Count 204 MPV 10.2 PT 39.0 H* INR 3.61 H* Sodium 142 Potassium 4.4 Chloride 105 Carbon Dioxide 30 Anion Gap 11 BUN 24 H Creatinine 0.9 Est GFR ( Amer) > 60 Est GFR (Non-Af Amer) > 60 Random Glucose 87 Calcium 8.2 L Total Bilirubin 0.3 AST 28 ALT 29 Alkaline Phosphatase 210 H Total Protein 6.9 Albumin 3.5 Globulin 3.4 Albumin/Globulin Ratio 1.0 L Assessment & Plan - Assessment and Plan (Free Text) Assessment: 61 yo female with fall at home undergoing a cardiac workup. The patient makes no other complaints at this time. Supportive care. Dr. Ortiz on board for Cardiology. Patient with residual right sided weakness from a previous stroke. Chronic pain issues. She also complains of constipation. She states she takes Percocet at home. Await clearance from Cardiology. Will start Percocet in hospital for pain control. Discharge planning for the next 24-48 hours.
--- NOTE | 2016-12-01 22:56 | CARD ---
APPROVED REPORT EXAM: Two-dimensional and M-mode echocardiogram with Doppler and color Doppler. INDICATION LVFX/FALL 2D DIMENSIONS Left Atrium (2D)4.8 (1.6-4.0cm)IVSd1.1 (0.7-1.1cm) LVDd6.7 (3.9-5.9cm)PWd1.3 (0.7-1.1cm) LVDs5.7 (2.5-4.0cm)FS (%) 14.1 % LVEF (%)29.1 (>50%) M-Mode DIMENSIONS Aortic Root3.10 (2.2-3.7cm)Aortic Cusp Exc.1.80 (1.5-2.0cm) Aortic Valve AoV Peak Ffdffsth689.0cm/Chantel Peak GR.5mmHg Mitral Valve MV E Ufqeqlnz153.0cm/sMV A Cjujongg05.7cm/sE/A ratio2.8 TDI E/Lateral E'0.0E/Medial E'0.0 Pulmonary Valve PV Peak Fvvbenxk20.2cm/sPV Peak Grad.1mmHg Tricuspid Valve TR Peak [id number]/sRAP [id number] Peak Gr.67mmHg [id number] LEFT VENTRICLE The Left Ventricle is moderately dilated. There is normal left ventricular wall thickness. The systolic function is severely impaired. There is global hypokinesis of the left ventricle. No left ventricle thrombus noted on this study. RIGHT VENTRICLE The right ventricle is normal size. There is normal right ventricular wall thickness. RV Systolic function is mildly reduced. ATRIA The left atrium is moderately dilated. The right atrium is mildly dilated. AORTIC VALVE The aortic valve is mildly thickened. No aortic regurgitation is present. There is no aortic valvular stenosis. MITRAL VALVE The mitral valve is mildly thickened. Mitral regurgitation is moderate. TRICUSPID VALVE There is severe tricuspid regurgitation. There is severe pulmonary hypertension. PULMONIC VALVE There is mild pulmonic valvular regurgitation. GREAT VESSELS The aortic root is normal in size. The IVC is normal in size and collapses >50% with inspiration. <Conclusion> The Left Ventricle is moderately dilated. There is normal left ventricular wall thickness. The systolic function is severely impaired. There is global hypokinesis of the left ventricle. No left ventricle thrombus noted on this study. Mitral regurgitation is moderate. There is severe tricuspid regurgitation. There is severe pulmonary hypertension.
[2016-12-02] MEDS: Oxycodone/Acetaminophen 10/325 mg Tab PO PRN ×3 (00:41→16:33)
[2016-12-02 07:36] VITALS: O2SAT 100
[2016-12-02] MEDS: diltiaZEM 120 mg/24 Hours CD Cap PO SCH (10:09)
[2016-12-02] MEDS: Digoxin 250 mcg (0.25 mg) Tab PO SCH (10:10)
[2016-12-02] MEDS: Non Formulary Medication (Celecoxib [Celebrex] 200 MG) PO SCH ×2 (10:10→17:55)
[2016-12-02] MEDS: Metoprolol Succinate 100 mg XL Tab PO SCH (10:11)
[2016-12-02 10:12] VITALS: PULSE 62
--- NOTE | 2016-12-02 18:08 | CP.PCM.PN ---
Subjective - Date & Time of Evaluation Date of Evaluation: 12/02/16 Time of Evaluation: 15:15 - Subjective Subjective: Covering Internal Medicine Progress Note: December 02, 2016 61 yo -[place] female with fall to ground when she lost her balance trying to put on her shoes. She denied any shortness of breath, loss of consciousness, or chest pain. Seen by Dr. Ortiz. Echocardiogram to be done. She makes no other complaints. Pain seems to be under better control with the addition of percocet. Awaiting Cardiology clearance. Echocardiogram done. Objective - Vital Signs/Intake and Output Vital Signs (last 24 hours): Temp Pulse Resp BP Pulse Ox 97.9 F 60 20 133/85 100 12/02/16 07:35 12/02/16 10:11 12/02/16 07:35 12/02/16 10:19 12/02/16 07:35 Intake and Output: 12/02/16 12/02/16 06:59 18:59 Intake Total 900 500 Output Total 200 800 Balance 700 -300 - Medications Medications: Current Medications Atorvastatin Calcium (Lipitor) 10 mg PO DAILY [facility] Last Admin: 12/02/16 10:08 Dose: 10 mg Calcium Carbonate (Caltrate) 600 mg PO DAILY [facility] Last Admin: 12/02/16 10:09 Dose: 600 mg Clopidogrel Bisulfate (Plavix) 75 mg PO DAILY [facility] Last Admin: 12/02/16 10:09 Dose: 75 mg Digoxin (Lanoxin) 0.25 mg PO DAILY [facility] Last Admin: 12/02/16 10:10 Dose: 0.25 mg Diltiazem HCl (Cardizem Cd) 120 mg PO DAILY [facility] Last Admin: 12/02/16 10:09 Dose: 120 mg Docusate Sodium (Colace) 100 mg PO TID [facility] Last Admin: 12/02/16 13:49 Dose: 100 mg Furosemide (Lasix) 40 mg IVP DAILY [facility] Last Admin: 12/02/16 10:19 Dose: 40 mg Gabapentin (Neurontin) 600 mg PO QID [facility] PRN Reason: Protocol Last Admin: 12/02/16 13:49 Dose: 600 mg Metoprolol Succinate (Toprol Xl) 100 mg PO DAILY [facility] Last Admin: 12/02/16 10:11 Dose: 100 mg Non-Formulary Medication (Celecoxib [Celebrex]) 200 mg PO BID [facility] Last Admin: 12/02/16 10:10 Dose: Not Given Oxycodone/Acetaminophen (Percocet 10/325 Mg Tab) 1 tab PO Q8H PRN PRN Reason: Pain, moderate (4-7) Last Admin: 12/02/16 16:33 Dose: 1 tab Phenytoin Sodium (Dilantin) 100 mg PO TID [facility] Last Admin: 12/02/16 13:49 Dose: 100 mg Tramadol HCl (Ultram) 50 mg PO Q8 PRN PRN Reason: Pain, severe (8-10) Last Admin: 12/02/16 06:19 Dose: 50 mg Warfarin Sodium (Coumadin) 3 mg PO 1800 [facility] PRN Reason: Protocol Last Admin: 11/30/16 17:56 Dose: 3 mg - Labs Labs: 12/01/16 06:00 12/01/16 06:00 PT 39.0 Seconds (9.9-11.8) H* 12/01/16 06:00 INR 3.61 (0.93-1.08) H* 12/01/16 06:00 APTT 52.0 Seconds (23.7-30.8) H 11/29/16 23:12 - Constitutional Appears: Non-toxic, No Acute Distress, Chronically Ill - Head Exam Head Exam: ATRAUMATIC, NORMOCEPHALIC - Eye Exam Eye Exam: EOMI, PERRL Pupil Exam: NORMAL ACCOMODATION, PERRL - ENT Exam ENT Exam: Mucous Membranes Moist, Normal External Ear Exam, TM's Normal Bilaterally - Neck Exam Neck Exam: Full ROM, Normal Inspection - Respiratory Exam Respiratory Exam: Clear to Ausculation Bilateral, NORMAL BREATHING PATTERN. absent: Rales, Rhonchi, Wheezes - Cardiovascular Exam Cardiovascular Exam: REGULAR RHYTHM, RRR, +S1, +S2 - GI/Abdominal Exam GI & Abdominal Exam: Soft, Normal Bowel Sounds. absent: Distended, Tenderness - Extremities Exam Additional comments: right sided weakness. - Neurological Exam Neurological Exam: Alert, Awake, CN II-XII Intact, Oriented x3 - Psychiatric Exam Psychiatric exam: Normal Affect, Normal Mood - Skin Skin Exam: Intact, Normal Color Assessment and Plan - Assessment and Plan (Free Text) Assessment: 61 yo female with fall at home undergoing a cardiac workup. The patient makes no other complaints at this time. Supportive care. Dr. Ortiz on board for Cardiology. Patient with residual right sided weakness from a previous stroke. Chronic pain issues. She also complains of constipation. She states she takes Percocet at home. Await clearance from Cardiology. Noted Echocardiogram results. Echo is showing moderately dilated left ventricle, severely impaired systolic function, global hypokinesis of the left ventricle, moderate mitral regurgitation, severe tricuspid reugurgitation, and severe pulmonary hypertension. Continue on Percocet in hospital for pain control. Discharge planning for the next 24 hours.
[2016-12-02 19:01] LABS: INR 2.83 (0.93-1.08)
[2016-12-02] MEDS ORDERED: Oxycodone/Acetaminophen 10/325 mg Tab PO STA (22:10)
--- NOTE | 2016-12-03 01:43 | CP.PCM.PN ---
Subjective - Date & Time of Evaluation Date of Evaluation: 12/03/16 Time of Evaluation: 01:27 - Subjective Subjective: seen at bedside. Patient complained of pain in right arm . No other complaints. Medical record was reviewed. 61 year old woman was admitted post mechanical fall, right shoulder arthritis. 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 Objective - Vital Signs/Intake and Output Vital Signs (last 24 hours): Temp Pulse Resp BP Pulse Ox 97.6 F 52 L 20 105/67 100 12/02/16 16:00 12/02/16 16:00 12/02/16 16:00 12/02/16 16:00 12/02/16 16:00 Intake and Output: 12/02/16 12/03/16 18:59 06:59 Intake Total 500 780 Output Total 800 500 Balance -300 280 - Medications Medications: Current Medications Atorvastatin Calcium (Lipitor) 10 mg PO DAILY [facility] Last Admin: 12/02/16 10:08 Dose: 10 mg Calcium Carbonate (Caltrate) 600 mg PO DAILY [facility] Last Admin: 12/02/16 10:09 Dose: 600 mg Clopidogrel Bisulfate (Plavix) 75 mg PO DAILY [facility] Last Admin: 12/02/16 10:09 Dose: 75 mg Digoxin (Lanoxin) 0.25 mg PO DAILY [facility] Last Admin: 12/02/16 10:10 Dose: 0.25 mg Diltiazem HCl (Cardizem Cd) 120 mg PO DAILY [facility] Last Admin: 12/02/16 10:09 Dose: 120 mg Docusate Sodium (Colace) 100 mg PO TID [facility] Last Admin: 12/02/16 18:06 Dose: 100 mg Furosemide (Lasix) 40 mg IVP DAILY [facility] Last Admin: 12/02/16 10:19 Dose: 40 mg Gabapentin (Neurontin) 600 mg PO QID [facility] PRN Reason: Protocol Last Admin: 12/02/16 21:04 Dose: 600 mg Metoprolol Succinate (Toprol Xl) 100 mg PO DAILY [facility] Last Admin: 12/02/16 10:11 Dose: 100 mg Non-Formulary Medication (Celecoxib [Celebrex]) 200 mg PO BID [facility] Last Admin: 12/02/16 17:55 Dose: Not Given Oxycodone/Acetaminophen (Percocet 10/325 Mg Tab) 1 tab PO Q8H PRN PRN Reason: Pain, moderate (4-7) Last Admin: 12/02/16 16:33 Dose: 1 tab Phenytoin Sodium (Dilantin) 100 mg PO TID [facility] Last Admin: 12/02/16 18:06 Dose: 100 mg Tramadol HCl (Ultram) 50 mg PO Q8 PRN PRN Reason: Pain, severe (8-10) Last Admin: 12/02/16 20:46 Dose: 50 mg Warfarin Sodium (Coumadin) 3 mg PO 1800 [facility] PRN Reason: Protocol Last Admin: 12/02/16 19:24 Dose: 3 mg - Labs Labs: 12/01/16 06:00 12/01/16 06:00 PT 30.6 Seconds (9.9-11.8) H* 12/02/16 18:05 INR 2.83 (0.93-1.08) H 12/02/16 18:05 APTT 52.0 Seconds (23.7-30.8) H 11/29/16 23:12 Laboratory Last Values WBC 4.3 10^3/ul (4.5-11.0) L D 12/01/16 06:00 RBC 3.99 10^6/uL (3.5-6.1) 12/01/16 06:00 Hgb 10.8 g/dL (12.0-16.0) L 12/01/16 06:00 Hct 34.9 % (36.0-48.0) L 12/01/16 06:00 MCV 87.5 fl (80.0-105.0) 12/01/16 06:00 MCH 27.1 pg (25.0-35.0) 12/01/16 06:00 MCHC 30.9 g/dl (31.0-37.0) L 12/01/16 06:00 RDW 16.8 % (11.5-14.5) H 12/01/16 06:00 Plt Count 204 10^3/uL (120.0-450.0) 12/01/16 06:00 MPV 10.2 fl (7.0-11.0) 12/01/16 06:00 Gran % 69.9 % (50.0-68.0) H 11/29/16 23:12 Lymph % (Auto) 21.6 % (22.0-35.0) L 11/29/16 23:12 [place] % (Auto) 7.5 % (1.0-6.0) H 11/29/16 23:12 Eos % (Auto) 0.9 % (1.5-5.0) L 11/29/16 23:12 Baso % (Auto) 0.1 % (0.0-3.0) 11/29/16 23:12 Gran # 4.69 (1.4-6.5) 11/29/16 23:12 Lymph # 1.5 (1.2-3.4) 11/29/16 23:12 [place] # 0.5 (0.1-0.6) 11/29/16 23:12 Eos # 0.1 (0.0-0.7) 11/29/16 23:12 Baso # 0.01 K/mm3 (0.0-2.0) 11/29/16 23:12 PT 30.6 Seconds (9.9-11.8) H* 12/02/16 18:05 INR 2.83 (0.93-1.08) H 12/02/16 18:05 APTT 52.0 Seconds (23.7-30.8) H 11/29/16 23:12 Sodium 142 mmol/L (132-148) 12/01/16 06:00 Potassium 4.4 mmol/L (3.6-5.0) 12/01/16 06:00 Chloride 105 mmol/L (98-107) 12/01/16 06:00 Carbon Dioxide 30 mmol/L (21-33) 12/01/16 06:00 Anion Gap 11 (10-20) 12/01/16 06:00 BUN 24 mg/dL (7-21) H 12/01/16 06:00 Creatinine 0.9 mg/dL (0.7-1.2) 12/01/16 06:00 Est GFR ( Amer) > 60 12/01/16 06:00 Est GFR (Non-Af Amer) > 60 12/01/16 06:00 Random Glucose 87 mg/dL (70-110) 12/01/16 06:00 Calcium 8.2 mg/dL (8.4-10.5) L 12/01/16 06:00 Total Bilirubin 0.3 mg/dL (0.2-1.3) 12/01/16 06:00 AST 28 U/L (14-36) 12/01/16 06:00 ALT 29 U/L (7-56) 12/01/16 06:00 Alkaline Phosphatase 210 U/L (38-126) H 12/01/16 06:00 NT-Pro-B Natriuret Pep 3790 pg/mL (0-450) H 11/30/16 07:00 Total Protein 6.9 g/dL (5.8-8.3) 12/01/16 06:00 Albumin 3.5 g/dL (3.0-4.8) 12/01/16 06:00 Globulin 3.4 gm/dL 12/01/16 06:00 Albumin/Globulin Ratio 1.0 (1.1-1.8) L 12/01/16 06:00 Digoxin 0.7 ng/mL (0.8-2.0) L 11/30/16 07:00 - Constitutional Appears: Well, No Acute Distress - Head Exam Head Exam: ATRAUMATIC, NORMAL INSPECTION, NORMOCEPHALIC - Eye Exam Eye Exam: Normal appearance - ENT Exam ENT Exam: Normal External Ear Exam - Neck Exam Neck Exam: Normal Inspection - Respiratory Exam Respiratory Exam: NORMAL BREATHING PATTERN - Cardiovascular Exam Cardiovascular Exam: absent: JVD - GI/Abdominal Exam GI & Abdominal Exam: absent: Distended - Rectal Exam Rectal Exam: Deferred - Exam Additional comments: Deferred. - Extremities Exam Extremities Exam: Normal Inspection - Back Exam Back Exam: NORMAL INSPECTION - Neurological Exam Neurological Exam: Alert, Awake, Oriented x3 - Psychiatric Exam Psychiatric exam: Normal Affect, Normal Mood - Skin Skin Exam: Normal Color Assessment and Plan - Assessment and Plan (Free Text) Assessment: Right arm pain. Obesity. CAD. Atrial fibrillation. History stroke. Plan: Percocet I PO STAT. Continue present management.
[2016-12-03] MEDS: Oxycodone/Acetaminophen 10/325 mg Tab PO PRN ×2 (05:42→13:21)
[2016-12-03 07:39] VITALS: PULSE 58; RESP 18; TEMP 98.3
[2016-12-03] MEDS: diltiaZEM 120 mg/24 Hours CD Cap PO SCH (09:24)
[2016-12-03] MEDS: Metoprolol Succinate 100 mg XL Tab PO SCH (09:24)
[2016-12-03] MEDS: Digoxin 250 mcg (0.25 mg) Tab PO SCH (09:24)
[2016-12-03 09:25] VITALS: BP 128/80
[2016-12-03] MEDS: Non Formulary Medication (Celecoxib [Celebrex] 200 MG) PO SCH (09:34)
--- NOTE | 2016-12-03 13:59 | PN ---
SUBJECTIVE: The patient is seen and examined at bedside, has been getting a full workup with Dr. Esdras Ortiz. Currently at this point is not having any further chest pain; however, the patient is refusing subacute rehab and would like to go to the TCU. At this point no chest pain, no shortness of breath, no nausea and no vomiting. PHYSICAL EXAMINATION: VITAL SIGNS: Blood pressure is 128/80, pulse rate of 58, temperature is 98.3, O2 saturation is 100% on nasal cannula. HEENT: Normocephalic and atraumatic. [place] conjunctivae. Anicteric sclerae. NECK: No JVD. No thyromegaly. CARDIOVASCULAR: Regular rate and rhythm. S1 and S2 appreciated. No S3 noted. LUNGS: Bilateral air entry is positive. No wheezes or rhonchi. ABDOMEN: Nondistended and nontender. Positive bowel sounds. LABORATORY DATA: PT is 30.6, INR is 2.83. ASSESSMENT: 1. Status post fall. 2. Chest pain. 3. Hypertension. 4. Tricuspid regurgitation. PLAN: At this point is to continue treatment for atrial fibrillation as well as physical therapy, and we will evaluate to be sent to the TCU at this point and we will follow there closely. Demetri Guadarrama MD
== END 2016-12-03 15:42 | DRG 554 ==
LOC: ED 20:27 → ERH 11-30 09:37 → 5RSO 11-30 12:30
PROVIDERS: ADMIT Family Medicine; ATTEND Family Medicine
DX: M19.011 Primary osteoarthritis, right shoulder (principal); I69.351 Hemiplegia and hemiparesis following cerebral infarction affecting right dominant side; I27.20 Pulmonary hypertension, unspecified; G89.29 Other chronic pain; I08.1 Rheumatic disorders of both mitral and tricuspid valves; I10 Essential (primary) hypertension; E78.00 Pure hypercholesterolemia, unspecified; K59.00 Constipation, unspecified; I25.10 Atherosclerotic heart disease of native coronary artery without angina pectoris; M79.601 Pain in right arm; R07.9 Chest pain, unspecified; I48.91 Unspecified atrial fibrillation; Z91.81 History of falling; E66.9 Obesity, unspecified; I25.2 Old myocardial infarction; Z68.34 Body mass index [BMI] 34.0-34.9, adult; Z79.01 Long term (current) use of anticoagulants; Z79.02 Long term (current) use of antithrombotics/antiplatelets; Z79.82 Long term (current) use of aspirin; Z79.899 Other long term (current) drug therapy; Z90.710 Acquired absence of both cervix and uterus; Z90.49 Acquired absence of other specified parts of digestive tract

== ENCOUNTER 2016-12-03 15:42 | Inpatient (IN) | payer OTHER, BC ==
[2016-12-03 16:44] VITALS: BMI 37.8
[2016-12-03] MEDS ORDERED: Pneumococcal 23-Valent Vaccine IM ONE (16:48)
[2016-12-03] MEDS: Oxycodone/Acetaminophen 10/325 mg Tab PO PRN (20:56)
[2016-12-04] MEDS ORDERED: Metoprolol Succinate 100 mg XL Tab PO SCH (08:00)
[2016-12-04] MEDS: diltiaZEM 120 mg/24 Hours CD Cap PO SCH (09:58)
--- NOTE | 2016-12-04 09:59 | HP ---
HISTORY OF PRESENT ILLNESS: She is now in the transistional care unit. She was in the hospital, I was called down 4 days ago to see her in the emergency room by the ER doctor twice and she could not do physical therapy with the physical therapist and recommendation was TCU subacute rehab. She spent 3 of her nights at [facility]; now, she is here in the TCU because she is very weak, she had fallen at home and could not get herself up. She ended up in the ER with an ambulance and physical therapy said she could not walk and now, she is here for physical therapy and when she does well, we will get her home. PAST MEDICAL HISTORY: She has a past medical history of an old VA, high cholesterol and tachycardia. She has a CVA, an old one with weakness. She has weakness on the right side secondary to the stroke. She has chronic pain, atrial fibrillation, seizure, CHF, peripheral neuropathy, arthritis and she is morbidly obese. She had a cholecystectomy in the past. She has had thrombophlebitis, blood clots in the right knee, but she does get along with the right foot brace, cane and a heel support from a footdrop of the right foot. ALLERGIES: SHE HAS ALLERGIES TO PENICILLIN. SOCIAL HISTORY: No smoking, no drinking, no drugs. MEDICATIONS: She is on Caltrate, Cardizem, Colace, Coumadin, Dilantin, Lanoxin, Lasix, Lipitor, Neurontin, Percocet, Plavix, Toprol and Ultram. PHYSICAL EXAMINATION: VITAL SIGNS: She has a 98.1 temperature, 60 pulse, 111/69 blood pressure, 18 respiratory rate and 96% O2 sat on room air. HEENT: Head is atraumatic and normocephalic. Throat is moist. NECK: Supple. HEART: Regular rate and irregular. LUNGS: Decreased breath sounds, but clear with poor inspiration. ABDOMEN: Soft, morbidly obese, nontender, positive bowel sounds. No guarding. No rebound. No CVA tenderness. EXTREMITIES: Have +2 to 3 pitting edema in bilateral lower extremities. She has right foot, leg and right arm weakness with contracture. SKIN: For the most part is intact. NODES: Thyroid midline. No palpable or appreciated lymphadenopathy. LABORATORY DATA: No labs are back. She is going to have a consult with pain management, cardiology. She will get physical therapy; once she does well with physical therapy, we will discharge her home and check her labs tomorrow. The patient had a fall at home, could not get up, failed physical therapy in the emergency room and the recommendation was subacute rehab or TCU. We got her to the TCU; hopefully, we can get her home in the next 7 days. Keaton Rick DO
[2016-12-04] MEDS: Oxycodone/Acetaminophen 10/325 mg Tab PO PRN ×2 (11:28→21:44)
[2016-12-04] MEDS: Digoxin 250 mcg (0.25 mg) Tab PO SCH (13:49)
[2016-12-04] MEDS ORDERED: Oxycodone/Acetaminophen 5/325 mg Tab PO STA (14:21)
--- NOTE | 2016-12-04 14:32 | PN ---
DATE: 12/04/2016 SUBJECTIVE: The patient has worked with physical therapy this morning in the TCU. PHYSICAL EXAMINATION: VITAL SIGNS: Blood pressure 127/78, heart rate in the 60s. NECK: Negative JVD. LUNGS: Decreased breath sounds. HEART: Reveal S1 and S2. EXTREMITIES: Without change. LABORATORY DATA: Hemoglobin is 10.8. Chemistries were not drawn today. IMPRESSION: 1. Status post status post mechanical fall. 2. History of coronary artery disease. 3. Hypercholesterolemia. 4. Abnormal EKG. Her echocardiogram reveals an ejection fraction of 29% consistent with a cardiomyopathy. PLAN: We will continue working with physical therapy. She is currently on her Cardizem as well as warfarin for history of paroxysmal atrial fibrillation. We will decrease her metoprolol and add an TRACY inhibitor. Esdras Ortiz MD
[2016-12-05] MEDS: Oxycodone/Acetaminophen 10/325 mg Tab PO PRN (05:55)
[2016-12-05 07:24] LABS: HEMATOCRIT 37.5 % (36.0-48.0); MEAN CELL VOLUME 86.4 fl (80.0-105.0); MEAN CORPUSCULAR HGB CONC 31.2 g/dl (31.0-37.0); MEAN PLATELET VOLUME 9.9 fl (7.0-11.0); RED CELL DISTRIBUTION WIDTH 16.5 % (11.5-14.5); WHITE BLOOD COUNT 4.9 10^3/ul (4.5-11.0)
[2016-12-05 07:28] LABS: INR 1.84 (0.93-1.08)
[2016-12-05] MEDS: Metoprolol Succinate 50 mg XL Tab PO SCH (07:48)
[2016-12-05 07:56] LABS: ALKALINE PHOSPHATASE 209 U/L (38-126); ALT/SGPT 34 U/L (7-56); AST/SGOT 31 U/L (14-36); BILIRUBIN,TOTAL 0.3 mg/dL (0.2-1.3); BLOOD UREA NITROGEN 23 mg/dL (7-21); CALCIUM 8.4 mg/dL (8.4-10.5); CARBON DIOXIDE 33 mmol/L (21-33); CHLORIDE 102 mmol/L (98-107); GFR AFRICAN-AMERICAN > 60; GLUCOSE,RANDOM 114 mg/dL (70-110); SODIUM 141 mmol/L (132-148); TOTAL PROTEIN 6.9 g/dL (5.8-8.3)
[2016-12-05] MEDS: diltiaZEM 120 mg/24 Hours CD Cap PO SCH (09:50)
[2016-12-05 10:10] LABS: URINE BILIRUBIN NEGATIVE (NEGATIVE); URINE BLOOD MODERATE (NEGATIVE); URINE GLUCOSE (UA) NEGATIVE (NEGATIVE); URINE KETONE NEGATIVE (NEGATIVE); URINE LEUKOCYTE ESTERASE SMALL Leu/uL (NEGATIVE); URINE PROTEIN NEGATIVE mg/dL (<30 mg/dL); URINE UROBILINOGEN 0.2 E.U./dL (<1 E.U./dL)
[2016-12-05 10:12] LABS: URINE APPEARANCE CLOUDY (CLEAR); URINE COLOR YELLOW (YELLOW)
[2016-12-05 10:31] LABS: URINE BACTERIA MANY (NEG); URINE EPITHELIAL CELLS 0 - 2 /hpf (0-5); URINE RBC 0 - 2 /hpf (0-2); URINE WBC 0 - 2 /hpf (0-6)
--- NOTE | 2016-12-05 12:53 | PN ---
DATE: 12/05/2016 SUBJECTIVE: She has multiple complaints. She wants her pain management doctor to see her. She is having constipation, for that. She is also feeling like she is having a urinary tract infection. She is eating well. Trying in physical therapy. She is eating but does not like the food. CURRENT MEDICATIONS: She is on calcium, Cardizem, Colace, Coumadin, Dilantin, Lanoxin, Lasix, Lipitor, Neurontin, Percocet, Plavix, Toprol, Ultram, Zestril. I added Dulcolax suppository. Changed her Lasix to p.o. PHYSICAL EXAMINATION: VITAL SIGNS: 97.9 temperature, 67 pulse, 112/71 blood pressure, 16 respiratory rate, 90% O2 sat on room air. HEENT: Head is atraumatic, normocephalic. HEART: Regular rate. LUNGS: Decreased breath sounds but clear to auscultation. ABDOMEN: Soft. Morbidly obese. Nontender. Positive bowel sounds. EXTREMITIES: +2 to +4 pitting edema bilateral with a right-sided weakness from a stroke. LABORATORY DATA: She has a 4.9 white count, 11.7 hemoglobin, 37.5 hematocrit with a 207 platelets. Last INR is 1.84, which is this morning, 141 sodium, potassium 4, BUN 23, creatinine 0.8, 60, sugar is 140, calcium is 8.4, total bilirubin is 0.3, AST is 31, ALT is 34, alkaline phosphatase is 209, total protein is 6.9, albumin is 3.4. PLAN: Waiting for pain management to come. As per Cardiology physical therapy and I do think she is starting to improve. She has fall and inability to walk. Physical therapy was started in the ER. They recommended TCU subacute rehab. We kept her for three overnights while she is here for that and just starting to improve. An old stroke, right weakness, congestive heart failure, atrial fibrillation. Keaton Rick DO [facility]
[2016-12-05] MEDS: Digoxin 250 mcg (0.25 mg) Tab PO SCH (14:13)
[2016-12-05] MEDS: Oxycodone/Acetaminophen 10/325 mg Tab PO SCH ×2 (14:17→19:26)
[2016-12-05] MEDS: oxyCODONE 10 mg ER Tab (oxyCONTIN) PO SCH (21:23)
[2016-12-06] MEDS: Oxycodone/Acetaminophen 10/325 mg Tab PO SCH ×4 (01:17→20:44)
[2016-12-06 07:05] LABS: HEMATOCRIT 37.4 % (36.0-48.0); MEAN CELL VOLUME 86.4 fl (80.0-105.0); MEAN CORPUSCULAR HEMOGLOBIN 26.8 pg (25.0-35.0); MEAN PLATELET VOLUME 10.2 fl (7.0-11.0); RED CELL DISTRIBUTION WIDTH 16.4 % (11.5-14.5); WHITE BLOOD COUNT 4.8 10^3/ul (4.5-11.0)
[2016-12-06 07:13] LABS: INR 1.68 (0.93-1.08)
[2016-12-06 07:32] LABS: ALB/GLOB RATIO 1.1 (1.1-1.8); ALKALINE PHOSPHATASE 193 U/L (38-126); ALT/SGPT 39 U/L (7-56); AST/SGOT 36 U/L (14-36); BILIRUBIN,TOTAL 0.4 mg/dL (0.2-1.3); BLOOD UREA NITROGEN 25 mg/dL (7-21); CALCIUM 8.4 mg/dL (8.4-10.5); CARBON DIOXIDE 32 mmol/L (21-33); CHLORIDE 102 mmol/L (95-110); GFR AFRICAN-AMERICAN > 60; GLUCOSE,RANDOM 114 mg/dL (70-110); POTASSIUM 4.1 mmol/L (3.6-5.0); SODIUM 138 mmol/L (132-148); TOTAL PROTEIN 6.8 g/dL (5.8-8.3)
[2016-12-06] MEDS: Metoprolol Succinate 50 mg XL Tab PO SCH (08:17)
[2016-12-06] MEDS: oxyCODONE 10 mg ER Tab (oxyCONTIN) PO SCH ×2 (08:17→20:46)
[2016-12-06] MEDS ORDERED: Alum-Mag Hydrox-Simethicone Susp (30 mL) PO PRN (08:24)
[2016-12-06] MEDS: diltiaZEM 120 mg/24 Hours CD Cap PO SCH (09:53)
[2016-12-06] MEDS: Digoxin 250 mcg (0.25 mg) Tab PO SCH (13:17)
--- NOTE | 2016-12-06 14:22 | PN ---
DATE: 12/06/2016 SUBJECTIVE: I saw Karis resting in bed this morning in the Transitional Care Unit, she is having indigestion after she ate, so we will give her some medication and I gave her some Mylanta. She is also asking for the Lasix to be IV again because she does not think that she is urinating with the p.o. Lasix, we will change it to IV Lasix, I agree with that. She is also having UTI, put on Macrodantin 100 mg twice a day. She is trying physical therapy. PHYSICAL EXAMINATION: VITAL SIGNS: 98.2 temperature, 69 pulse, 130/88 blood pressure, 16 respiratory rate, and 97% O2 saturation on room air. HEENT: Head is atraumatic and normocephalic. Throat moist. NECK: Supple. HEART: Regular rate. LUNGS: Decreased breath sounds, clear to auscultation. No wheezes, no rhonchi, and no rales. ABDOMEN: Soft. Positive bowel sounds. Morbidly obese. Nontender. No guarding. No rebound. EXTREMITIES: +2/4 pitting edema. NEUROLOGIC: She has right-sided weakness secondary to her CVA and she is starting to walk better with physical therapy. CURRENT MEDICATIONS: She is currently on Caltrate, Cardizem, Colace, Coumadin, which increase today, Dilantin, Lanoxin, Lasix to IV, Lipitor, Maalox, Macrobid for UTI, Neurontin, oxycodone, Percocet, Plavix, Toprol, and Zestril. LABORATORY DATA: She has a 4.8 white count, 11.6 hemoglobin, 37.4 hematocrit with 202 platelets. INR was 1.68 or went down, we will increase her Coumadin. Sodium 138, potassium 4.1, BUN 25, and creatinine 0.8. GFR is greater than 60. Sugar is 114. Calcium is 8.4. Total bilirubin is AST 36, ALT is 39, alkaline phosphatase 193, and total protein 6.8. Positive urinary tract infection. IMPRESSION AND PLAN: She is being seen by Dr. Ortiz, the sales assistant displays, status post mechanical fall, history of coronary artery disease, high cholesterol, and abnormal EKG. Continue the same medications. Awaiting pain management. Check her labs tomorrow. Continue with aggressive physical therapy. Keaton Rick DO [email or web address]
--- NOTE | 2016-12-06 23:55 | CON ---
DATE: 12/06/2016 LOCATION: Patient is seen earlier today in room 321. CHIEF COMPLAINT: Positive urine culture x1 day. HISTORY OF PRESENT ILLNESS: This is a 61-year-old female with past medical history of coronary artery disease, myocardial infarction and high cholesterol, who was admitted to the acute care with a diagnosis of inability to ambulate. Patient had a urine culture done and had grown up bacteria and Infectious Disease consultation requested. The patient has no nausea, no vomiting or chest pain. The patient does have a suprapubic catheter. REVIEW OF SYSTEMS: Reveals no abdominal pain or nausea and vomiting at this point. PAST MEDICAL HISTORY: Significant for morbid obesity with BMI of 41 in the past, hypertension, coronary artery disease, history of DVT, history of left cerebrovascular accident, atrial fibrillation and sleep apnea. PAST SURGICAL HISTORY: Significant for an IVC filter, history of hysterectomy and the suprapubic catheter. ALLERGIES: PATIENT IS ALLERGIC TO PENICILLIN. TYPE OF ALLERGY; SHE STATES SHE IS NOT CLEAR. MEDICATIONS: Reviewed. PHYSICAL EXAMINATION: GENERAL: Patient is in bed, in no acute distress; however, chronically ill, debilitated and weak. VITAL SIGNS: With a temperature of 98, blood pressure is 117/70, heart rate of 58, respiratory rate of 16. HEENT: Unremarkable. NECK: Supple. LUNGS: Have decreased breath sounds. HEART: Normal S1, S2. ABDOMEN: Soft, nontender. LABORATORY EXAMINATION: Reveals a white count of 4.9, hemoglobin of 11, platelets of 207. Chemistries reveals the BUN of 23, creatinine of 0.8, alk phos is 209. Urinalysis reveals 0 to 2 wbc's, many bacteria. Digoxin level is 0.7. Microbiology reveals a gram-negative alta in the urine culture, greater than 100,000 colonies. ASSESSMENT AND PLAN: A 61-year-old female with coronary artery disease; myocardial function; high cholesterol; sleep apnea; seizures; obesity, BMI of 35; hypertension; history of deep venous thrombosis and left cerebrovascular accident; atrial fibrillation; now with a gram-negative alta urinary tract infection with secondary to suprapubic catheter and the patient has had a coronary stent, also cardiac stents and a hysterectomy in the past and cholecystectomy. Currently, this gram-negative alta in the urine does not require treatment since the patient has no symptoms and the urinalysis is unremarkable. We are not treat the gram-negative alta in the urine, however, the patient is at risk for developing. We will follow with you. The patient was asymptomatic and gram-negative alta in urine. Santosh Lopez MD
[2016-12-07] MEDS: Oxycodone/Acetaminophen 10/325 mg Tab PO SCH ×4 (02:00→19:23)
[2016-12-07 07:18] LABS: HEMATOCRIT 36.7 % (36.0-48.0); MEAN CELL VOLUME 86.6 fl (80.0-105.0); MEAN CORPUSCULAR HEMOGLOBIN 26.9 pg (25.0-35.0); MEAN CORPUSCULAR HGB CONC 31.1 g/dl (31.0-37.0); MEAN PLATELET VOLUME 10.2 fl (7.0-11.0); RED CELL DISTRIBUTION WIDTH 16.7 % (11.5-14.5); WHITE BLOOD COUNT 4.9 10^3/ul (4.5-11.0)
[2016-12-07 07:25] LABS: INR 1.61 (0.93-1.08)
[2016-12-07 07:26] LABS: ALB/GLOB RATIO 1.1 (1.1-1.8); ALKALINE PHOSPHATASE 201 U/L (38-126); ALT/SGPT 47 U/L (7-56); AST/SGOT 34 U/L (14-36); BILIRUBIN,TOTAL 0.4 mg/dL (0.2-1.3); BLOOD UREA NITROGEN 25 mg/dL (7-21); CALCIUM 8.6 mg/dL (8.4-10.5); CARBON DIOXIDE 31 mmol/L (21-33); CHLORIDE 102 mmol/L (95-110); GFR AFRICAN-AMERICAN > 60; GLUCOSE,RANDOM 110 mg/dL (70-110); POTASSIUM 4.4 mmol/L (3.6-5.0); SODIUM 139 mmol/L (132-148); TOTAL PROTEIN 6.9 g/dL (5.8-8.3)
[2016-12-07] MEDS: oxyCODONE 10 mg ER Tab (oxyCONTIN) PO SCH ×2 (08:21→20:04)
[2016-12-07] MEDS: Metoprolol Succinate 50 mg XL Tab PO SCH (08:27)
--- NOTE | 2016-12-07 11:23 | PN ---
DATE: 12/07/2016 SUBJECTIVE: The patient is in bed, in no acute distress, nontoxic. OBJECTIVE: VITAL SIGNS: On exam, temperature is 97, blood pressure is 120/60, respiratory rate of 18 and heart rate of 57. EXAMINATION OF HEENT: Unremarkable. NECK: Supple. LUNGS: Decreased breath sounds. HEART EXAM: Normal S1 and S2. ABDOMEN EXAMINATION: Soft and nontender. LABORATORY EXAMINATION: Reveals a white count of 4.9, hemoglobin of 11 and platelets of 212. Chemistries reveal a BUN of 25 and creatinine of 0.8. Urinalysis is noted. ASSESSMENT AND PLAN: This is a 61-year-old female who was seen earlier this morning in room #321, had an uneventful night, past medical history of coronary artery disease, myocardial infarction, high cholesterol, sleep apnea, seizures, obesity with body mass index of 35, hypertension, history of deep venous thrombosis and left cerebrovascular accident, atrial fibrillation, now admitted in the transitional care with Gram-negative alta in the urine culture identification, sensitivity is pending and the patient's urinalysis is unremarkable with 0 to 2 wbc's and no urinary symptoms. Currently off of antibiotics, afebrile. Case discussed with Dr. Keaton Rick. Santosh Lopez MD
[2016-12-07] MEDS: diltiaZEM 120 mg/24 Hours CD Cap PO SCH (12:08)
[2016-12-07] MEDS: Promethazine DM 6.25 mg-15 mg/5 ml Syrup PO PRN ×2 (12:13→20:04)
[2016-12-07] MEDS: Digoxin 250 mcg (0.25 mg) Tab PO SCH (13:17)
--- NOTE | 2016-12-07 14:58 | PN ---
SUBJECTIVE: I saw the patient in the transitional care unit. She is having multiple complaints this morning, GI upset. She has also cold, congestion, sore throat, coughing, not feeling well. PHYSICAL EXAMINATION: VITAL SIGNS: Today are 97.7 temperature, 62 pulse, 121/68 blood pressure, 15 respiratory rate, 98% O2 saturation. HEENT: Head is atraumatic, normocephalic. Throat is red. NECK: Supple. HEART: Regular rate. LUNGS: Mild congestion, clears with cough versus new. ABDOMEN: Soft, nontender. Positive bowel sounds. She is having upper middle abdominal gastric pain. She is not on anything for that. I will put her on some Protonix. EXTREMITIES: Weak on the right side. There is edema, but she is walking better and improving. MEDICATIONS: She is on Caltrate, Cardizem, Colace, Coumadin, Dilantin, Lanoxin, Lasix, Lipitor, Maalox, Macrobid, Neurontin, oxycodone, Phenergan DM, Plavix, Protonix, Toprol, Zestril, and Zithromax. LABORATORY DATA: She has a 4.9 white count, 11.4 hemoglobin, 36.7 hematocrit with 212 platelets. INR is up to 1.61. She has a 139 sodium, potassium 4.4, BUN is 25, creatinine 0.8, GFR is greater than 60, sugar is 110, calcium is 8.6, total bilirubin is 0.4, AST is 34, ALT is 47, alkaline phosphatase is 201, total protein is 6.9, albumin is 3.6. Urine with many bacteria, she is on antibiotics for that. PLAN: She is up to 4 mg of Coumadin. We will check her INR tomorrow. I added Protonix 40 mg b.i.d., Zithromax, Phenergan DM. All fever, cough, cold, sore throat, indigestion will all fade, and she will do well with therapy at the same time. Keaton Rick DO
[2016-12-07] MEDS: Pantoprazole 40 mg EC Tab PO SCH (17:40)
[2016-12-08] MEDS: Oxycodone/Acetaminophen 10/325 mg Tab PO SCH ×3 (01:48→19:03)
[2016-12-08 06:16] LABS: MEAN CELL VOLUME 86.4 fl (80.0-105.0); MEAN CORPUSCULAR HEMOGLOBIN 26.9 pg (25.0-35.0); MEAN CORPUSCULAR HGB CONC 31.1 g/dl (31.0-37.0); MEAN PLATELET VOLUME 10.2 fl (7.0-11.0); RED CELL DISTRIBUTION WIDTH 16.6 % (11.5-14.5); WHITE BLOOD COUNT 4.7 10^3/ul (4.5-11.0)
[2016-12-08 06:26] LABS: ALKALINE PHOSPHATASE 199 U/L (38-126); ALT/SGPT 38 U/L (7-56); AST/SGOT 42 U/L (14-36); BILIRUBIN,TOTAL 0.3 mg/dL (0.2-1.3); BLOOD UREA NITROGEN 25 mg/dL (7-21); CALCIUM 8.6 mg/dL (8.4-10.5); CARBON DIOXIDE 32 mmol/L (21-33); CHLORIDE 101 mmol/L (98-107); GFR AFRICAN-AMERICAN > 60; GLUCOSE,RANDOM 98 mg/dL (70-110); POTASSIUM 4.4 mmol/L (3.6-5.0); SODIUM 141 mmol/L (132-148); TOTAL PROTEIN 6.8 g/dL (5.8-8.3)
[2016-12-08 06:37] LABS: INR 1.66 (0.93-1.08)
[2016-12-08] MEDS: Pantoprazole 40 mg EC Tab PO SCH ×2 (08:29→17:49)
[2016-12-08] MEDS: oxyCODONE 10 mg ER Tab (oxyCONTIN) PO SCH ×2 (08:32→20:59)
[2016-12-08] MEDS: Metoprolol Succinate 50 mg XL Tab PO SCH (08:37)
[2016-12-08] MEDS: Promethazine DM 6.25 mg-15 mg/5 ml Syrup PO PRN ×3 (08:43→22:41)
[2016-12-08] MEDS: diltiaZEM 120 mg/24 Hours CD Cap PO SCH (10:42)
[2016-12-08] MEDS: Digoxin 250 mcg (0.25 mg) Tab PO SCH (14:50)
--- NOTE | 2016-12-08 15:01 | PN ---
SUBJECTIVE: I saw Karis in bed this morning in t care unit. She slept fairly well. She is still having upper abdominal pain. I did increase her Protonix to twice a day. I called in GI and ordered an ultrasound of the abdomen and pelvis. Otherwise, she is trying hard in physical therapy, and she is actually eating well. She also has Zofran for nauseousness. PHYSICAL EXAMINATION: VITAL SIGNS: 97.8 temperature, 72 pulse, 110/66 blood pressure, 18 respiratory rate. HEENT: Head is atraumatic, normocephalic. HEART: Regular rate. LUNGS: Clear to auscultation with decreased breath sounds. ABDOMEN: Soft. Positive bowel sounds. Morbidly obese. Mild upper abdominal discomfort. No guarding. No rebound. 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 MEDICATIONS: She is currently on Caltrate, Cardizem, Colace, Coumadin, Dilantin, Lanoxin, Lasix, Lipitor, Maalox, Macrobid, Neurontin, oxycodone, Percocet, Phenergan, Plavix, Protonix, Toprol, Zestril, Zithromax and Zofran. LABORATORY DATA: She has a 4.7 white count, 11.5 hemoglobin, 37 hematocrit with 213 platelets. INR is 1.66, on Coumadin. She has a 141 sodium, potassium 4.4, BUN is 25, creatinine 0.8, GFR is greater than 60, sugar is 98, calcium is 8.6, total bilirubin is 0.3, AST is 42, ALT is 38, alkaline phosphatase is 199, total protein is 6.8. PLAN: She is being seen by infectious disease and she is improving. I am just not sure if stomach, do an ultrasound, GI consult, continue with increasing of Protonix and Zofran p.r.n. We will check her labs tomorrow. Karis Pugh was here for abdominal pain, debility from a fall and UTI. Keaton Rick DO [facility]
--- NOTE | 2016-12-08 15:39 | US ---
HISTORY: Abdominal pain COMPARISON: Comparison made with CT scan of the abdomen and pelvis 04/28/2015 TECHNIQUE: Transabdominal sonographic evaluation of the pelvis performed. FINDINGS: UTERUS: Uterus is not visualized consistent with this patient's history of hysterectomy. Neither ovary visualized on this study. No evidence of masses or collections within the visualized portions of the pelvis ENDOMETRIUM: Measures mm in diameter. Unremarkable. CERVIX: No cervical abnormality identified. RIGHT OVARY: Measures cm. No solid mass. Normal flow. LEFT OVARY: Measures cm. No solid mass. Normal flow. FREE FLUID: No significant free fluid noted. OTHER FINDINGS: None. IMPRESSION: Uterus is not visualized consistent with this patient's history of hysterectomy. Neither ovary visualized.
--- NOTE | 2016-12-08 15:47 | US ---
HISTORY: abdominal pain COMPARISON: Comparison made with abdominal ultrasound 01/13/2013 TECHNIQUE: Sonographic evaluation of the abdomen. FINDINGS: LIVER: Measures approximately 14 cm in CC dimension. Smooth contour however slight increased echotexture suggesting fatty infiltration however other infiltrative hepatocellular disease process not excluded. Echogenicity of the liver parenchyma. No mass. No intrahepatic bile duct dilatation. GALLBLADDER: Gallbladder not visualized consistent with patient's history of cholecystectomy COMMON BILE DUCT: Is dilated measuring approximate 1.2 cm on likely due to a combination of followup cholecystectomy state and advanced age. No definitive evidence of choledocholithiasis. PANCREAS: Pancreas not visualized due to large body habitus and bowel gas RIGHT KIDNEY: Measures approximately 9.8 x 4.7 x 6.1cm. Normal echogenicity. No calculus, mass, or hydronephrosis. LEFT KIDNEY: Measures approximately 9.9 x 4.5 x 6.0 cm. Normal echogenicity. No calculus, mass, or hydronephrosis. SPLEEN: Normal in size (measuring approximately 11.3 cm in greatest dimension) and contour. No mass. AORTA: Not visualized due to large body habitus and bowel gas. IVC: Not visualized due to large body habitus and bowel gas OTHER FINDINGS: None. IMPRESSION: Limited study due to large body habitus and bowel gas. Echogenic hepatic parenchyma likely due to fatty infiltration however other infiltrative hepatocellular disease process not excluded. Status post cholecystectomy with dilatation of the common bile duct likely due to advanced age and post cholecystectomy state. No definitive evidence of choledocholithiasis. Pancreas, aorta and IVC not visualized. .
--- NOTE | 2016-12-08 15:48 | PN ---
DATE: 12/08/2016 SUBJECTIVE: The patient is in bed, in no acute distress. PHYSICAL EXAMINATION: VITAL SIGNS: Temperature of 98, blood pressure is 102/60, respiratory rate of 18. HEENT: Unremarkable. NECK: Supple. LUNGS: Have decreased breath sounds. HEART: Normal S1, S2. ABDOMEN: Soft. LABORATORY EXAMINATION: Reveals the patient's white count is normal and urinalysis is unremarkable and urine culture has VRE and Escherichia coli. ASSESSMENT AND PLAN: A 61-year-old female, who was seen earlier this morning, history of coronary artery disease, myocardial infarction, high cholesterol, sleep apnea, seizures, obesity, body mass index of 35, hypertension, history of deep venous thrombosis, left cerebrovascular accident, atrial fibrillation and admitted to Transitional Care with Escherichia coli and vancomycin-resistant Enterococcus in the urine. The patient is asymptomatic the urinalysis is unremarkable, would not treat this vancomycin-resistant Enterococcus in the urine. We will order a repeat urine culture and keep the patient on isolation; however, will not treat the urine culture. Santosh Lopez MD
[2016-12-09] MEDS: Oxycodone/Acetaminophen 10/325 mg Tab PO SCH ×5 (02:00→20:12)
[2016-12-09] MEDS: Pantoprazole 40 mg EC Tab PO SCH ×2 (05:38→17:30)
[2016-12-09] MEDS: Promethazine DM 6.25 mg-15 mg/5 ml Syrup PO PRN ×3 (06:01→22:45)
[2016-12-09 06:11] LABS: HEMATOCRIT 39.2 % (36.0-48.0); MEAN CELL VOLUME 86.5 fl (80.0-105.0); MEAN CORPUSCULAR HEMOGLOBIN 27.2 pg (25.0-35.0); MEAN CORPUSCULAR HGB CONC 31.4 g/dl (31.0-37.0); MEAN PLATELET VOLUME 10.5 fl (7.0-11.0); RED CELL DISTRIBUTION WIDTH 16.4 % (11.5-14.5); WHITE BLOOD COUNT 4.5 10^3/ul (4.5-11.0)
[2016-12-09 06:16] LABS: INR 1.72 (0.93-1.08)
[2016-12-09 06:25] LABS: ALKALINE PHOSPHATASE 222 U/L (38-126); ALT/SGPT 44 U/L (7-56); AST/SGOT 43 U/L (14-36); BILIRUBIN,TOTAL 0.5 mg/dL (0.2-1.3); BLOOD UREA NITROGEN 27 mg/dL (7-21); CALCIUM 8.7 mg/dL (8.4-10.5); CARBON DIOXIDE 31 mmol/L (21-33); CHLORIDE 102 mmol/L (98-107); GFR AFRICAN-AMERICAN > 60; GLUCOSE,RANDOM 90 mg/dL (70-110); POTASSIUM 4.6 mmol/L (3.6-5.0); SODIUM 140 mmol/L (132-148); TOTAL PROTEIN 7.4 g/dL (5.8-8.3)
[2016-12-09] MEDS: Metoprolol Succinate 50 mg XL Tab PO SCH (08:26)
[2016-12-09] MEDS: oxyCODONE 10 mg ER Tab (oxyCONTIN) PO SCH ×2 (09:40→22:45)
[2016-12-09] MEDS: diltiaZEM 120 mg/24 Hours CD Cap PO SCH (09:42)
[2016-12-09] MEDS: POLYETHYLENE GLYCOL 3350 17 GM/Dose PACKET PO SCH ×2 (09:57→17:32)
--- NOTE | 2016-12-09 12:21 | CP.PCM.CON ---
<Esperanza Montgomery - Last Filed: 12/09/16 12:23> History of Present Illness - History of Present Illness History of Present Illness: PGY4 Initial GI Consult Note Karis Pugh is a 61F of HL and CAD who was [place] [facility] [place] Pt was then discharged to rehab. Pt is complaining of abd pain. Pt states that the onset has been for 3 weeks. She notes that the pain is intermittent and she describes it has crampy. Her pain is located in lower quadrants B/L. She denies any alleviating factors, but notes that her pain worsens with her constipation. Pt notes that she has had constipation for years. She notes that her last BM was days prior and occured only after she was given a rectal suppository. Pt states that she is on chronic medication prescribed by her PCP at home for constipation but cannot recall its name. She denies any BRBPR, melena, or coffee-ground emesis. PMHx: tachycardia, hypercholesterolemia, old NV Social Hx: no tobacco, EtOH, or illicit drug use Endoscopy hx: 11/2015: colonscopy x2 polyps ROS: 12 point ROS is conducted, neg other than above Past Patient History - Infectious Disease Hx of Infectious Diseases: None - Tetanus Immunizations Tetanus Immunization: Unknown - Past Social History Smoking Status: Never Smoked - CARDIAC Hx Cardiac Disorders: Yes Hx Hypercholesterolemia: Yes Hx Hypertension: Yes - PULMONARY Hx Respiratory Disorders: No - NEUROLOGICAL HX Cerebrovascular Accident: Yes - HEENT Hx HEENT Problems: No - RENAL Hx Chronic Kidney Disease: No - ENDOCRINE/METABOLIC Hx Endocrine Disorders: No - HEMATOLOGICAL/ONCOLOGICAL Hx Blood Transfusions: No Hx Blood Transfusion Reaction: No - INTEGUMENTARY Hx Dermatological Problems: No - MUSCULOSKELETAL/RHEUMATOLOGICAL Hx Arthritis: Yes - GASTROINTESTINAL Hx Gastrointestinal Disorders: Yes (constipation) - GENITOURINARY/GYNECOLOGICAL Hx Reproductive Disorders: Yes (hyst) - PSYCHIATRIC Hx Emotional Abuse: No Hx Physical Abuse: No Hx Substance Use: No - SURGICAL HISTORY Hx Cholecystectomy: Yes Hx Hysterectomy: Yes - ANESTHESIA Hx Anesthesia Reactions: No Hx Malignant Hyperthermia: No Meds Allergies/Adverse Reactions: Allergies Allergy/AdvReac Type Severity Reaction Status Date / Time Penicillins Allergy Severe ANAPHYLAXIS Verified 12/06/16 08:31 - Medications Medications: Current Medications Al Hydrox/Mg Hydrox/Simethicone (Maalox Plus 30 Ml) 30 ml PO DAILY PRN; Protocol PRN Reason: Indigestion / Heartburn Last Admin: 12/06/16 09:50 Dose: 30 ml Atorvastatin Calcium (Lipitor) 10 mg PO DIN [facility] Last Admin: 12/08/16 17:48 Dose: 10 mg Calcium Carbonate (Caltrate) 600 mg PO DAILY [facility] PRN Reason: Protocol Last Admin: 12/09/16 09:42 Dose: 600 mg Clopidogrel Bisulfate (Plavix) 75 mg PO DAILY [facility] PRN Reason: Protocol Last Admin: 12/09/16 09:43 Dose: 75 mg Digoxin (Lanoxin) 0.25 mg PO 1400 [facility] PRN Reason: Protocol Last Admin: 12/08/16 14:50 Dose: 0.25 mg Diltiazem HCl (Cardizem Cd) 120 mg PO DAILY [facility] PRN Reason: Protocol Last Admin: 12/09/16 09:42 Dose: 120 mg Docusate Sodium (Colace) 100 mg PO TID [facility] PRN Reason: Protocol Last Admin: 12/09/16 09:42 Dose: 100 mg Furosemide (Lasix) 40 mg IVP DAILY [facility] Last Admin: 12/09/16 09:43 Dose: 40 mg Gabapentin (Neurontin) 600 mg PO QID [facility] PRN Reason: Protocol Last Admin: 12/09/16 09:43 Dose: 600 mg Lisinopril (Zestril) 2.5 mg PO DAILY [facility] Last Admin: 12/09/16 09:44 Dose: 2.5 mg Metoprolol Succinate (Toprol Xl) 50 mg PO BRK [facility] PRN Reason: Protocol Last Admin: 12/09/16 08:26 Dose: 50 mg Ondansetron HCl (Zofran Inj) 4 mg IVP Q6H PRN PRN Reason: Nausea/Vomiting Oxycodone HCl (Oxycontin Extended Release Tab) 30 mg PO 0800,2000 [facility] PRN Reason: Protocol Last Admin: 12/09/16 09:40 Dose: 30 mg Oxycodone/Acetaminophen (Percocet 10/325 Mg Tab) 1 tab PO Q6H [facility] Last Admin: 12/09/16 07:31 Dose: Not Given Pantoprazole Sodium (Protonix Ec Tab) 40 mg PO 0600,1600 [facility] Last Admin: 12/09/16 05:38 Dose: 40 mg Phenytoin Sodium (Dilantin) 100 mg PO TID [facility] Last Admin: 12/09/16 09:43 Dose: 100 mg Polyethylene Glycol (Miralax) 17 gm PO BID [facility] Last Admin: 12/09/16 09:57 Dose: 17 gm Promethazine HCl/Dextromethorphan (Phenergan Dm Syrup) 5 ml PO Q6H PRN PRN Reason: Cough Last Admin: 12/09/16 06:01 Dose: 5 ml Warfarin Sodium (Coumadin) 4 mg PO 1800 [facility] PRN Reason: Protocol Last Admin: 12/08/16 17:47 Dose: 4 mg Physical Exam - Constitutional Appears: Well, No Acute Distress - Head Exam Head Exam: ATRAUMATIC, NORMOCEPHALIC - Eye Exam Eye Exam: Normal appearance - ENT Exam ENT Exam: Mucous Membranes Moist - Neck Exam Neck exam: Positive for: Normal Inspection - Respiratory Exam Respiratory Exam: Clear to Auscultation Bilateral, NORMAL BREATHING PATTERN. absent: Rales, Rhonchi, Wheezes, Respiratory Distress - Cardiovascular Exam Cardiovascular Exam: REGULAR RHYTHM, +S1, +S2 - GI/Abdominal Exam GI & Abdominal Exam: Normal Bowel Sounds, Soft. absent: Firm, Guarding, Hernia , Organomegaly, Rebound - Neurological Exam Neurological exam: Alert, Oriented x3 - Psychiatric Exam Psychiatric exam: Normal Affect, Normal Mood - Skin Skin Exam: Dry, Intact, Normal Color, Warm Results - Vital Signs Recent Vital Signs: Last Vital Signs Temp 98.2 F 12/08/16 16:11 Pulse 64 12/08/16 16:11 Resp 20 12/08/16 16:11 BP 116/64 12/09/16 09:44 Pulse Ox 94 L 12/08/16 16:11 - Labs Result Diagrams: 12/09/16 05:45 12/09/16 05:45 Labs: Laboratory Results - last 24 hr 12/09/16 12/09/16 12/09/16 05:45 05:45 05:45 WBC 4.5 RBC 4.53 Hgb 12.3 Hct 39.2 MCV 86.5 MCH 27.2 MCHC 31.4 RDW 16.4 H Plt Count 215 MPV 10.5 PT 18.6 H INR 1.72 H Sodium 140 Potassium 4.6 Chloride 102 Carbon Dioxide 31 Anion Gap 12 BUN 27 H Creatinine 0.9 Est GFR ( Amer) > 60 Est GFR (Non-Af Amer) > 60 Random Glucose 90 Calcium 8.7 Total Bilirubin 0.5 AST 43 H ALT 44 Alkaline Phosphatase 222 H Total Protein 7.4 Albumin 3.7 Globulin 3.7 Albumin/Globulin Ratio 1.0 L Assessment & Plan - Assessment and Plan (Free Text) Assessment: Karis Pugh is a 61F w/ hx of chronic constipation, HL, CAD who is here for rehab s/p mechanical fall. Pt has acute on chronic abd pain likely 2/2 constipation 1. Abd pain 2/2 constipation 2. Hx of Constipation 3. hx of polyps Plan: -will start the pt on miralax BID -x1 [place] dulcolax -continue diet as tolerated -if pt does not respond to miralax and dulcolax will add on further bowel regiment -continue diet as tolerated -repeat colonscopy in 3-5 yeasr, polyps were tubular ademona -recommend pt continue her medication prescribed to her for constipation by her PCP as an oupt D/W Dr. More <Issac More - Last Filed: 12/09/16 14:34> Meds - Medications Medications: Current Medications Al Hydrox/Mg Hydrox/Simethicone (Maalox Plus 30 Ml) 30 ml PO DAILY PRN; Protocol PRN Reason: Indigestion / Heartburn Last Admin: 12/06/16 09:50 Dose: 30 ml Atorvastatin Calcium (Lipitor) 10 mg PO DIN [facility] Last Admin: 12/08/16 17:48 Dose: 10 mg Calcium Carbonate (Caltrate) 600 mg PO DAILY [facility] PRN Reason: Protocol Last Admin: 12/09/16 09:42 Dose: 600 mg Clopidogrel Bisulfate (Plavix) 75 mg PO DAILY [facility] PRN Reason: Protocol Last Admin: 12/09/16 09:43 Dose: 75 mg Digoxin (Lanoxin) 0.25 mg PO 1400 [facility] PRN Reason: Protocol Last Admin: 12/08/16 14:50 Dose: 0.25 mg Diltiazem HCl (Cardizem Cd) 120 mg PO DAILY [facility] PRN Reason: Protocol Last Admin: 12/09/16 09:42 Dose: 120 mg Docusate Sodium (Colace) 100 mg PO TID [facility] PRN Reason: Protocol Last Admin: 12/09/16 09:42 Dose: 100 mg Furosemide (Lasix) 40 mg IVP DAILY [facility] Last Admin: 12/09/16 09:43 Dose: 40 mg Gabapentin (Neurontin) 600 mg PO QID [facility] PRN Reason: Protocol Last Admin: 12/09/16 09:43 Dose: 600 mg Lisinopril (Zestril) 2.5 mg PO DAILY [facility] Last Admin: 12/09/16 09:44 Dose: 2.5 mg Metoprolol Succinate (Toprol Xl) 50 mg PO BRK [facility] PRN Reason: Protocol Last Admin: 12/09/16 08:26 Dose: 50 mg Ondansetron HCl (Zofran Inj) 4 mg IVP Q6H PRN PRN Reason: Nausea/Vomiting Oxycodone HCl (Oxycontin Extended Release Tab) 30 mg PO 0800,2000 [facility] PRN Reason: Protocol Last Admin: 12/09/16 09:40 Dose: 30 mg Oxycodone/Acetaminophen (Percocet 10/325 Mg Tab) 1 tab PO Q6H [facility] Last Admin: 12/09/16 12:57 Dose: 1 tab Pantoprazole Sodium (Protonix Ec Tab) 40 mg PO 0600,1600 [facility] Last Admin: 12/09/16 05:38 Dose: 40 mg Phenytoin Sodium (Dilantin) 100 mg PO TID [facility] Last Admin: 12/09/16 09:43 Dose: 100 mg Polyethylene Glycol (Miralax) 17 gm PO BID [facility] Last Admin: 12/09/16 09:57 Dose: 17 gm Promethazine HCl/Dextromethorphan (Phenergan Dm Syrup) 5 ml PO Q6H PRN PRN Reason: Cough Last Admin: 12/09/16 06:01 Dose: 5 ml Warfarin Sodium (Coumadin) 4 mg PO 1800 [facility] PRN Reason: Protocol Last Admin: 12/08/16 17:47 Dose: 4 mg Results - Vital Signs Recent Vital Signs: Last Vital Signs Temp 98.2 F 12/08/16 16:11 Pulse 64 12/08/16 16:11 Resp 20 12/08/16 16:11 BP 116/64 12/09/16 09:44 Pulse Ox 94 L 12/08/16 16:11 - Labs Result Diagrams: 12/09/16 05:45 12/09/16 05:45 Labs: Laboratory Results - last 24 hr 12/09/16 12/09/16 12/09/16 05:45 05:45 05:45 WBC 4.5 RBC 4.53 Hgb 12.3 Hct 39.2 MCV 86.5 MCH 27.2 MCHC 31.4 RDW 16.4 H Plt Count 215 MPV 10.5 PT 18.6 H INR 1.72 H Sodium 140 Potassium 4.6 Chloride 102 Carbon Dioxide 31 Anion Gap 12 BUN 27 H Creatinine 0.9 Est GFR ( Amer) > 60 Est GFR (Non-Af Amer) > 60 Random Glucose 90 Calcium 8.7 Total Bilirubin 0.5 AST 43 H ALT 44 Alkaline Phosphatase 222 H Total Protein 7.4 Albumin 3.7 Globulin 3.7 Albumin/Globulin Ratio 1.0 L Attending/Attestation - Attestation I have personally seen and examined this patient.: Yes I have fully participated in the care of the patient.: Yes I have reviewed all pertinent clinical information: Yes Notes (Text): 12/09/16 14:32 61 year old female with h/o HLD, CAD, admitted to rehab after fall, also with chronic constipation. 1. Abdominal pain 2. Chronic constipation 3. History of colon polyps Plan: -start bowel regimen as above -outpatient colonoscopy recommended in a few months due to poor prep last year for colon polyps -pain is likely related to IBS-C
--- NOTE | 2016-12-09 13:20 | PN ---
DATE: 12/09/2016 SUBJECTIVE: The patient is in bed, no acute distress, and nontoxic. PHYSICAL EXAMINATION: VITAL SIGNS: Temperature is 98, blood pressure is 108/60, and respiratory rate of 18. HEENT: Examination of HEENT is unremarkable. NECK: Supple. LUNGS: Decreased breath sounds. HEART: Normal S1 and S2. GASTROINTESTINAL: Abdominal examination is soft and nontender. LABORATORY DATA: Examination reveals a white count of 4.5, hemoglobin of 12, and platelets of 215. Chemistries reveals a BUN of 27 and creatinine of 0.9. Urinalysis is noted. Microbiology reveals the urine for E. Coli and VRE is present. ASSESSMENT AND PLAN: This is a 61-year-old female seen earlier this morning with a history of coronary artery disease, myocardial infarction, high cholesterol, sleep apnea, seizures, obesity, body mass index of 35, hypertension, history of deep venous thrombosis, left cerebrovascular accident, and atrial fibrillation admitted to Transitional Care with Escherichia coli, vancomycin-resistant enterococcus asymptomatic. We will discontinue the Macrobid and Zithromax. No further antibiotics necessary at this point. Santosh Lopez MD
[2016-12-09] MEDS: Digoxin 250 mcg (0.25 mg) Tab PO SCH (15:07)
--- NOTE | 2016-12-09 15:27 | PN ---
DATE: SUBJECTIVE: I saw Karis resting comfortably, sitting up in bed with physical therapy. She is smiling, good attitude and good mood. No abdominal pain this morning. I came in, I appreciate their input. She has also been seen by Infectious Disease, Cardiology, and pain management, who has not seen her yet. She is on Caltrate, Cardizem, Colace, Coumadin, Dilantin, Dulcolax, Lanoxin, Lasix, Lipitor, magnesium, MiraLax, Neurontin, OxyContin, Percocet, Phenergan, Plavix, Protonix, Toprol, lisinopril and Zofran. PHYSICAL EXAMINATION: VITAL SIGNS: She has 98.2 temperature, 64 pulse, 108/64 blood pressure, 20 respiratory rate, 94% O2 sat on room air. HEENT: Head is atraumatic, normocephalic. She is smiling. Mouth is moist. NECK: Supple. HEART: Regular rate. LUNGS: Decreased breath sounds, but clear to auscultation. No wheezing. No rhonchi. No rales. ABDOMEN: Morbidly obese, soft, nontender, positive bowel sounds. No guarding. No rebound. No CVA tenderness. EXTREMITIES: Right-sided paralysis. She has a right brace on in the knee and a right footdrop brace on right foot. She is going to start walking, she walks 45 feet yesterday. She is definitely improving. LABORATORY DATA: She has 4.5 white count, 12.3 hemoglobin, 39.2 hematocrit, 215 platelets. INR is up to 1.72 on Coumadin, doing better. Sodium 140, potassium 4.6, BUN 27, creatinine 0.9. GFR is greater than 60. Sugar is 90, calcium is 8.7, total bilirubin is 0.5, AST is 43, ALT is 45, alkaline phosphatase is 222, total protein is 7.4. She has urinary tract infection. She is on antibiotics, digoxin 0.7. We will continue with aggressive treatment and care and physical therapy. She is on Coumadin 4 mg, which is good to see if her abdominal pain, fall, debility, old CVA, UTI, upper respiratory infection, CHF. We will continue with aggressive treatment and care. Check her labs tomorrow. Keaton Rick DO
[2016-12-10] MEDS: Oxycodone/Acetaminophen 10/325 mg Tab PO SCH ×3 (01:05→15:46)
[2016-12-10] MEDS: Pantoprazole 40 mg EC Tab PO SCH ×2 (06:07→16:56)
[2016-12-10] MEDS: Promethazine DM 6.25 mg-15 mg/5 ml Syrup PO PRN ×2 (06:12→20:07)
[2016-12-10 06:36] VITALS: RESP 18; TEMP 98.3
[2016-12-10 07:25] LABS: HEMATOCRIT 38.1 % (36.0-48.0); MEAN CELL VOLUME 86.2 fl (80.0-105.0); MEAN CORPUSCULAR HEMOGLOBIN 26.9 pg (25.0-35.0); MEAN CORPUSCULAR HGB CONC 31.2 g/dl (31.0-37.0); RED CELL DISTRIBUTION WIDTH 16.2 % (11.5-14.5); WHITE BLOOD COUNT 5.4 10^3/ul (4.5-11.0)
[2016-12-10 07:34] LABS: INR 1.86 (0.93-1.08)
[2016-12-10 07:36] LABS: ALKALINE PHOSPHATASE 225 U/L (38-126); ALT/SGPT 55 U/L (7-56); AST/SGOT 45 U/L (14-36); BILIRUBIN,TOTAL 0.4 mg/dL (0.2-1.3); BLOOD UREA NITROGEN 34 mg/dL (7-21); CALCIUM 8.7 mg/dL (8.4-10.5); CARBON DIOXIDE 32 mmol/L (21-33); CHLORIDE 102 mmol/L (95-110); GFR AFRICAN-AMERICAN > 60; GLUCOSE,RANDOM 95 mg/dL (70-110); POTASSIUM 4.5 mmol/L (3.6-5.0); SODIUM 142 mmol/L (132-148); TOTAL PROTEIN 7.3 g/dL (5.8-8.3)
[2016-12-10] MEDS: Metoprolol Succinate 50 mg XL Tab PO SCH (09:00)
[2016-12-10] MEDS: oxyCODONE 10 mg ER Tab (oxyCONTIN) PO SCH ×2 (09:00→20:06)
[2016-12-10] MEDS: diltiaZEM 120 mg/24 Hours CD Cap PO SCH (10:37)
[2016-12-10] MEDS: POLYETHYLENE GLYCOL 3350 17 GM/Dose PACKET PO SCH ×2 (10:39→17:56)
--- NOTE | 2016-12-10 11:08 | CP.PCM.PN ---
<Esperanza Montgomery - Last Filed: 12/10/16 14:46> Subjective - Date & Time of Evaluation Date of Evaluation: 12/10/16 Time of Evaluation: 09:30 - Subjective Subjective: PGY4 GI Follow-up Pt seen and examined bedside No new complaints Denies any abd pain She states that she had a large BM yesterday and today Tolerating diet ROS: 10 point ROS conducted, neg other than above Objective - Vital Signs/Intake and Output Vital Signs (last 24 hours): Temp Pulse Resp BP Pulse Ox 98.3 F 60 18 129/70 96 12/10/16 06:00 12/10/16 09:00 12/10/16 06:00 12/10/16 10:39 12/10/16 06:00 Intake and Output: 12/10/16 12/10/16 06:59 18:59 Intake Total 480 Output Total 750 Balance -270 - Medications Medications: Current Medications Al Hydrox/Mg Hydrox/Simethicone (Maalox Plus 30 Ml) 30 ml PO DAILY PRN; Protocol PRN Reason: Indigestion / Heartburn Last Admin: 12/06/16 09:50 Dose: 30 ml Atorvastatin Calcium (Lipitor) 10 mg PO DIN [facility] Last Admin: 12/09/16 17:30 Dose: 10 mg Calcium Carbonate (Caltrate) 600 mg PO DAILY [facility] PRN Reason: Protocol Last Admin: 12/10/16 10:37 Dose: 600 mg Clopidogrel Bisulfate (Plavix) 75 mg PO DAILY [facility] PRN Reason: Protocol Last Admin: 12/10/16 10:40 Dose: 75 mg Digoxin (Lanoxin) 0.25 mg PO 1400 [facility] PRN Reason: Protocol Last Admin: 12/09/16 15:07 Dose: 0.25 mg Diltiazem HCl (Cardizem Cd) 120 mg PO DAILY [facility] PRN Reason: Protocol Last Admin: 12/10/16 10:37 Dose: 120 mg Docusate Sodium (Colace) 100 mg PO TID [facility] PRN Reason: Protocol Last Admin: 12/10/16 10:37 Dose: 100 mg Furosemide (Lasix) 40 mg IVP DAILY [facility] Last Admin: 12/10/16 10:39 Dose: 40 mg Gabapentin (Neurontin) 600 mg PO QID [facility] PRN Reason: Protocol Last Admin: 12/10/16 10:40 Dose: 600 mg Lisinopril (Zestril) 2.5 mg PO DAILY [facility] Last Admin: 12/10/16 10:40 Dose: 2.5 mg Metoprolol Succinate (Toprol Xl) 50 mg PO BRK [facility] PRN Reason: Protocol Last Admin: 12/10/16 09:00 Dose: 50 mg Ondansetron HCl (Zofran Inj) 4 mg IVP Q6H PRN PRN Reason: Nausea/Vomiting Oxycodone HCl (Oxycontin Extended Release Tab) 30 mg PO 0800,2000 [facility] PRN Reason: Protocol Last Admin: 12/10/16 09:00 Dose: 30 mg Oxycodone/Acetaminophen (Percocet 10/325 Mg Tab) 1 tab PO Q6H [facility] Last Admin: 12/10/16 06:07 Dose: 1 tab Pantoprazole Sodium (Protonix Ec Tab) 40 mg PO 0600,1600 [facility] Last Admin: 12/10/16 06:07 Dose: 40 mg Phenytoin Sodium (Dilantin) 100 mg PO TID [facility] Last Admin: 12/10/16 10:37 Dose: 100 mg Polyethylene Glycol (Miralax) 17 gm PO BID [facility] Last Admin: 12/10/16 10:39 Dose: 17 gm Promethazine HCl/Dextromethorphan (Phenergan Dm Syrup) 5 ml PO Q6H PRN PRN Reason: Cough Last Admin: 12/10/16 06:12 Dose: 5 ml Warfarin Sodium (Coumadin) 4 mg PO 1800 [facility] PRN Reason: Protocol Last Admin: 12/09/16 17:31 Dose: 4 mg - Labs Labs: 12/10/16 07:16 12/10/16 07:16 PT 20.1 Seconds (9.9-11.8) H 12/10/16 07:16 INR 1.86 (0.93-1.08) H 12/10/16 07:16 - Constitutional Appears: Well, No Acute Distress - Head Exam Head Exam: ATRAUMATIC, NORMOCEPHALIC - Eye Exam Eye Exam: Normal appearance - ENT Exam ENT Exam: Mucous Membranes Moist - Respiratory Exam Respiratory Exam: Clear to Ausculation Bilateral, NORMAL BREATHING PATTERN. absent: Rales, Rhonchi, Wheezes - Cardiovascular Exam Cardiovascular Exam: REGULAR RHYTHM, +S1, +S2 - GI/Abdominal Exam GI & Abdominal Exam: Soft, Normal Bowel Sounds. absent: Tenderness, Organomegaly - Extremities Exam Extremities Exam: absent: Joint Swelling, Pedal Edema - Neurological Exam Neurological Exam: Alert, Awake, Oriented x3 - Psychiatric Exam Psychiatric exam: Normal Affect, Normal Mood - Skin Skin Exam: Dry, Intact, Normal Color, Warm Assessment and Plan - Assessment and Plan (Free Text) Assessment: Karis Pugh is a 61F w/ hx of chronic constipation, HL, CAD who is here for rehab s/p mechanical fall. Pt has acute on chronic abd pain likely 2/2 constipation 1. Abd pain 2/2 constipation 2. Hx of Constipation 3. hx of polyps Plan: -Continue miralax BID -continue diet as tolerated -repeat colonscopy as an outpt, f/u Dr. More w/i 2 weeks -recommend pt continue her medication prescribed to her for constipation by her PCP as an oupt -will sign off D/W Dr. More <Issac More - Last Filed: 12/10/16 17:56> Objective - Vital Signs/Intake and Output Vital Signs (last 24 hours): Temp Pulse Resp BP Pulse Ox 98.3 F 79 18 133/78 99 12/10/16 16:00 12/10/16 16:00 12/10/16 16:00 12/10/16 16:00 12/10/16 16:00 Intake and Output: 12/10/16 12/10/16 06:59 18:59 Intake Total 480 Output Total 750 Balance -270 - Medications Medications: Current Medications Al Hydrox/Mg Hydrox/Simethicone (Maalox Plus 30 Ml) 30 ml PO DAILY PRN; Protocol PRN Reason: Indigestion / Heartburn Last Admin: 12/06/16 09:50 Dose: 30 ml Atorvastatin Calcium (Lipitor) 10 mg PO DIN [facility] Last Admin: 12/09/16 17:30 Dose: 10 mg Calcium Carbonate (Caltrate) 600 mg PO DAILY [facility] PRN Reason: Protocol Last Admin: 12/10/16 10:37 Dose: 600 mg Clopidogrel Bisulfate (Plavix) 75 mg PO DAILY [facility] PRN Reason: Protocol Last Admin: 12/10/16 10:40 Dose: 75 mg Digoxin (Lanoxin) 0.125 mg PO 1400 [facility] PRN Reason: Protocol Diltiazem HCl (Cardizem Cd) 120 mg PO DAILY [facility] PRN Reason: Protocol Last Admin: 12/10/16 10:37 Dose: 120 mg Docusate Sodium (Colace) 100 mg PO TID [facility] PRN Reason: Protocol Last Admin: 12/10/16 14:44 Dose: 100 mg Furosemide (Lasix) 40 mg IVP DAILY [facility] Last Admin: 12/10/16 10:39 Dose: 40 mg Gabapentin (Neurontin) 600 mg PO QID [facility] PRN Reason: Protocol Last Admin: 12/10/16 14:56 Dose: 600 mg Lisinopril (Zestril) 2.5 mg PO DAILY [facility] Last Admin: 12/10/16 10:40 Dose: 2.5 mg Metoprolol Succinate (Toprol Xl) 50 mg PO BRK [facility] PRN Reason: Protocol Last Admin: 12/10/16 09:00 Dose: 50 mg Ondansetron HCl (Zofran Inj) 4 mg IVP Q6H PRN PRN Reason: Nausea/Vomiting Oxycodone HCl (Oxycontin Extended Release Tab) 30 mg PO 0800,2000 [facility] PRN Reason: Protocol Last Admin: 12/10/16 09:00 Dose: 30 mg Oxycodone/Acetaminophen (Percocet 10/325 Mg Tab) 1 tab PO Q6H [facility] Last Admin: 12/10/16 15:46 Dose: 1 tab Pantoprazole Sodium (Protonix Ec Tab) 40 mg PO 0600,1600 [facility] Last Admin: 12/10/16 06:07 Dose: 40 mg Phenytoin Sodium (Dilantin) 100 mg PO TID [facility] Last Admin: 12/10/16 14:46 Dose: 100 mg Polyethylene Glycol (Miralax) 17 gm PO BID [facility] Last Admin: 12/10/16 10:39 Dose: 17 gm Promethazine HCl/Dextromethorphan (Phenergan Dm Syrup) 5 ml PO Q6H PRN PRN Reason: Cough Last Admin: 12/10/16 06:12 Dose: 5 ml Warfarin Sodium (Coumadin) 4 mg PO 1800 [facility] PRN Reason: Protocol Last Admin: 12/09/16 17:31 Dose: 4 mg - Labs Labs: 12/10/16 07:16 12/10/16 07:16 PT 20.1 Seconds (9.9-11.8) H 12/10/16 07:16 INR 1.86 (0.93-1.08) H 12/10/16 07:16 Attending/Attestation - Attestation I have personally seen and examined this patient.: Yes I have fully participated in the care of the patient.: Yes I have reviewed all pertinent clinical information, including history, physical exam and plan: Yes Notes (Text): 12/10/16 17:56 61 year old female with h/o HLD, CAD, admitted to rehab after fall, also with chronic constipation. 1. Abdominal pain 2. Chronic constipation 3. History of colon polyps Plan: -improved with bm -continue miralax -outpatient colonoscopy recommended in a few months due to poor prep last year for colon polyps -pain is likely related to IBS-C -will sign off
--- NOTE | 2016-12-10 11:46 | PN ---
SUBJECTIVE: I saw her resting comfortably in bed this morning. She is not complaining about the diet. She does not want to be on a low-calorie diet. She wants to whatever she wants, I tried to talk to about weight loss, she did not care. She wants to eat whatever she wants. She is on Carafate, Cardizem, Colace, Coumadin, Dilantin, Lanoxin, Lasix, Lipitor, Maalox, MiraLax, Neurontin, oxycodone, OxyContin, Percocet, Phenergan, Plavix, Protonix, Toprol, Zestril and Zofran. PHYSICAL EXAMINATION: VITAL SIGNS: She has a 98.3 temp, 63 pulse, 124/70 blood pressure, 18 respiratory rate and 96% O2 sat on room air. HEENT: Head is atraumatic and normocephalic. Throat is moist. NECK: Supple. HEART: Regular rate. LUNGS: Decreased breath sounds, but clear to auscultation. No wheezing, no rhonchi, no rales. ABDOMEN: Soft, morbidly obese, nontender. Positive bowel sounds. EXTREMITIES: +3/4 pitting edema bilaterally. 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 LABORATORY DATA: She has 5.4 white count, 11.9 hemoglobin, 38.1 hematocrit with 210 platelets. INR is 1.86, going up. We will continue the Coumadin. Sodium 142, potassium 4.5, BUN 34, creatinine 0.9, GFR is greater than 60, sugar is 95, calcium is 8.7, total rose is 0.4, AST is 45, ALT is 55 and alkaline phosphatase is 225 with total protein of 7.23 and albumin is 3.7. She is being seen by GI, infectious disease. I believe tomorrow is her discharge date. She has one more day of physical therapy. She has CAD, AL, history of high cholesterol, sleep apnea, seizures, obesity, hypertension, DVTs, CVA, AFib, infections. She will be off the Macrobid and Zithromax as per infectious disease. Continue with aggressive treatment and care. Check her labs tomorrow. We should be discharging her home tomorrow. We will change her diet to regular. Keaton Rick DO TOSIN
[2016-12-10] MEDS ORDERED: Digoxin 125 mcg (0.125 mg) Tab PO SCH (13:49)
--- NOTE | 2016-12-10 15:37 | PN ---
DATE: 12/10/2016 CARDIOLOGY FOLLOWUP SUBJECTIVE: The patient is without shortness of breath, without chest pain. OBJECTIVE: VITAL SIGNS: On physical exam, blood pressure is 129/70, heart rate in the 60s. NECK: Negative JVD. LUNGS: Without rales. HEART: Reveal S1, S2. EXTREMITIES: Without edema. LABORATORY DATA: Hemoglobin is 11.9. Chemistries, BUN and creatinine is 34 and 0.9. The INR is 1.86. IMPRESSION: 1. Status post mechanical fall. 2. History of coronary artery disease. 3. History of paroxysmal atrial fibrillation. 4. Dilated cardiomyopathy. 5. Hypercholesterolemia. PLAN: Given these findings, the patient's heart rate is well-controlled. She is on Coumadin for atrial fibrillation. We will decrease her digoxin to 0.125 daily. Esdras Ortiz MD
[2016-12-10 17:18] VITALS: O2SAT 99
[2016-12-10 18:07] VITALS: PULSE 79
[2016-12-11] MEDS: Promethazine DM 6.25 mg-15 mg/5 ml Syrup PO PRN ×2 (01:05→07:36)
[2016-12-11] MEDS: Oxycodone/Acetaminophen 10/325 mg Tab PO SCH ×2 (01:05→06:25)
[2016-12-11] MEDS: Pantoprazole 40 mg EC Tab PO SCH (06:26)
[2016-12-11 07:55] LABS: HEMATOCRIT 38.1 % (36.0-48.0); MEAN CELL VOLUME 86.2 fl (80.0-105.0); MEAN CORPUSCULAR HEMOGLOBIN 27.6 pg (25.0-35.0); RED CELL DISTRIBUTION WIDTH 16.1 % (11.5-14.5); WHITE BLOOD COUNT 5.4 10^3/ul (4.5-11.0)
[2016-12-11 08:04] LABS: INR 1.96 (0.93-1.08)
[2016-12-11 08:06] LABS: ALKALINE PHOSPHATASE 233 U/L (38-126); ALT/SGPT 53 U/L (7-56); AST/SGOT 52 U/L (14-36); BILIRUBIN,TOTAL 0.4 mg/dL (0.2-1.3); BLOOD UREA NITROGEN 33 mg/dL (7-21); CALCIUM 8.6 mg/dL (8.4-10.5); CARBON DIOXIDE 32 mmol/L (21-33); CHLORIDE 101 mmol/L (98-107); GFR AFRICAN-AMERICAN > 60; GLUCOSE,RANDOM 111 mg/dL (70-110); POTASSIUM 4.4 mmol/L (3.6-5.0); SODIUM 140 mmol/L (132-148); TOTAL PROTEIN 7.3 g/dL (5.8-8.3)
[2016-12-11] MEDS: oxyCODONE 10 mg ER Tab (oxyCONTIN) PO SCH (09:00)
[2016-12-11] MEDS: Metoprolol Succinate 50 mg XL Tab PO SCH (09:00)
[2016-12-11] MEDS: diltiaZEM 120 mg/24 Hours CD Cap PO SCH (09:04)
[2016-12-11] MEDS: POLYETHYLENE GLYCOL 3350 17 GM/Dose PACKET PO SCH (09:05)
--- NOTE | 2016-12-11 09:18 | DS ---
HOSPITAL COURSE: She will be discharge home today. She did fairly well in the hospital. She came in originally with the fall, did physical therapy, went to the transitional care unit and did well. She is going to go home on a Caltrate, Cardizem, Colace, Coumadin, Dilantin, Lanoxin, Lasix, Lipitor, MiraLax, tramadol, Phenergan DM, Plavix, Protonix, metoprolol, Zestril, and Zofran. She has some narcotic pain medications, which she gets from Pain Management physician. I did not prescribe them for her. She knows that she is got to follow up with them, and she wants narcotics. PHYSICAL EXAMINATION: VITAL SIGNS: She has a 98.3 temperature, 79 pulse, 133/78 blood pressure, 18 respiratory rate, and 99% O2 sat on room air. HEENT: Head is atraumatic, normocephalic. She is smiling. She is happy. Throat is moist. NECK: Supple. HEART: Regular rate. LUNGS: Decreased breath sounds, but clear. ABDOMEN: Morbidly obese, soft, nontender, positive bowel sounds. No CVA tenderness. The right side is paralyzed from a stroke. EXTREMITIES: She has a +3 to 4 pitting edema bilateral lower extremities. She wears Rell stockings. She has a right knee brace and right footdrop brace. LABORATORY DATA: She has a 5.4 white count, 11.9 hemoglobin, 38.1 hematocrit with a 210 platelets. INR is 1.86, she is on Coumadin. She has a 142 sodium, potassium is 4.5, BUN is 34, creatinine 0.9, GFR is greater than 60, sugar is 95, calcium is 8.7, total bilirubin is 0.4, AST is 45, ALT is 55, alkaline phosphatase is 225, total protein is 7.3. She is going to go home today. She is walking better, doing better. She was seen by Cardiology, GI, and Infectious Disease. She had a mechanical fall, could not get up; coronary artery disease, atrial fibrillation, dilated cardiomyopathy, hypercholesteremia. She did improve nicely. Hopefully, she continued to improve at home until a Housecall on in the next 2 weeks. Keaton Rick DO
[2016-12-11 09:23] VITALS: BP 130/76; PULSE 70
== END 2016-12-11 14:14 | disposition home health service (06) | DRG 945 ==
LOC: TRCU 15:42
PROVIDERS: ADMIT Family Medicine; ATTEND Family Medicine
PROC: F07Z9FZ Gait Training/Functional Ambulation Treatment using Assistive, Adaptive, Supportive or Protective Equipment (ICD-10-PCS; principal; 2016-12-04)
PROC: F08Z4FZ Home Management Treatment using Assistive, Adaptive, Supportive or Protective Equipment (ICD-10-PCS; 2016-12-04)
DX: R53.1 Weakness (principal); I69.351 Hemiplegia and hemiparesis following cerebral infarction affecting right dominant side; I42.0 Dilated cardiomyopathy; I11.0 Hypertensive heart disease with heart failure; I50.9 Heart failure, unspecified; E66.01 Morbid (severe) obesity due to excess calories; R56.9 Unspecified convulsions; G62.9 Polyneuropathy, unspecified; N39.0 Urinary tract infection, site not specified; I48.0 Paroxysmal atrial fibrillation; E78.00 Pure hypercholesterolemia, unspecified; G89.29 Other chronic pain; K59.09 Other constipation; G47.30 Sleep apnea, unspecified; I25.10 Atherosclerotic heart disease of native coronary artery without angina pectoris; I25.2 Old myocardial infarction; Z86.718 Personal history of other venous thrombosis and embolism; Z90.710 Acquired absence of both cervix and uterus; Z95.5 Presence of coronary angioplasty implant and graft; Z68.37 Body mass index [BMI] 37.0-37.9, adult; Z91.81 History of falling; Z86.010 Personal history of colon polyps; Z90.49 Acquired absence of other specified parts of digestive tract; Z88.0 Allergy status to penicillin

== ENCOUNTER 2017-10-31 06:03 | Emergency (ER) | payer MEDICARE, BC ==
[2017-10-31 06:04] VITALS: PULSE 79; BMI 34.8
--- NOTE | 2017-10-31 07:28 | ED PDOC ---
Arrival/HPI - General Chief Complaint: Groin Pain Time Seen by Provider: 10/31/17 07:11 Historian: Patient - History of Present Illness Narrative History of Present Illness (Text): 10/31/17 07:24 62 year old female, whose past medical history includes [place] fibrillation, hypercholesterolemia, CVA with right hemiparesis on Coumadin (5 mg a day), hypertension, cholecystectomy, and hysterectomy, presents to the emergency department complaining of left groin pain. Patient states she woke up this morning with excruciating pain. She states the pain is similar to the pain she had 1 week ago which went away, but came back worse than before. Patient usually walks with a brace. Patient denies any trauma, fever, chills, nausea, vomiting, diarrhea, urinary symptoms, back pain, or any other complaints. PMD: Dr. Rick Time/Duration: 1 week Symptom Onset: Gradual Symptom Course: Intermittent Activities at Onset: Light, Sleeping Context: Home Past Medical History - Provider Review Nursing Documentation Reviewed: Yes - Infectious Disease Hx of Infectious Diseases: None - Tetanus Immunization Tetanus Immunization: Unknown - Cardiac Hx Cardiac Disorders: Yes Hx Hypertension: Yes - Pulmonary Hx Respiratory Disorders: No - Neurological HX Cerebrovascular Accident: Yes - HEENT Hx HEENT Disorder: No - Renal Hx Renal Disorder: No - Endocrine/Metabolic Hx Endocrine Disorders: No - Hematological/Oncological Hx Blood Transfusions: No Hx Blood Transfusion Reaction: No - Integumentary Hx Dermatological Disorder: No - Musculoskeletal/Rheumatological Hx Arthritis: Yes - Gastrointestinal Hx Gastrointestinal Disorders: Yes (constipation) - Genitourinary/Gynecological Hx Reproductive Disorders: Yes (hyst) - Psychiatric Hx Emotional Abuse: No Hx Physical Abuse: No Hx Substance Use: No - Surgical History Hx Cholecystectomy: Yes Hx Hysterectomy: Yes - Anesthesia Hx Anesthesia Reactions: No Hx Malignant Hyperthermia: No - Suicidal Assessment Feels Threatened In Home Enviroment: No Family/Social History - Physician Review Nursing Documentation Reviewed: Yes Family/Social History: No Known Family HX Smoking Status: Never Smoked Hx Alcohol Use: No Hx Substance Use: No Hx Substance Use Treatment: No Allergies/Home Meds Allergies/Adverse Reactions: Allergies Penicillins Allergy (Severe, Verified 10/31/17 06:35) ANAPHYLAXIS Home Medications: Home Meds Medication Instructions Recorded Confirmed Calcium Carbonate [Caltrate] 600 mg PO DAILY 07/13/11 10/31/17 Celecoxib [celeBREX] 200 mg PO DAILY 12/06/15 10/31/17 Clopidogrel [Plavix] 75 mg PO DAILY 12/06/15 10/31/17 Digoxin [Lanoxin] 0.25 mg PO DAILY 12/06/15 10/31/17 Diltiazem HCl [Tiazac] 120 mg PO DAILY 12/06/15 10/31/17 Oxycodone HCl [Oxycontin] 30 mg PO Q8 12/06/15 10/31/17 Aspirin [Aspirin Chewable] 81 mg PO DAILY 11/30/16 10/31/17 Cranberry Fruit Extract/Vit C [Azo 1 each PO DAILY 11/30/16 10/31/17 Cranberry Softgel] Folic Acid 1 mg PO DAILY 11/30/16 10/31/17 Multivitamin/Iron/Folic Acid 1 each PO DAILY 11/30/16 10/31/17 [Centrum Women Tablet] Naloxegol Oxalate [Movantik] 25 mg PO DAILY 11/30/16 10/31/17 Oxycodone HCl/Acetaminophen 1 each PO Q6 PRN 11/30/16 10/31/17 [Percocet 10-325 mg Tablet] Review of Systems - Physician Review All systems were reviewed & negative as marked: Yes - Review of Systems Constitutional: absent: Fevers, Other (Chills) Gastrointestinal: Abdominal Pain (Left groin pain). absent: Diarrhea, Nausea, Vomiting Genitourinary Female: absent: Dysuria, Frequency, Hematuria Musculoskeletal: absent: Back Pain Physical Exam Vital Signs Reviewed: Yes Vital Signs Pulse Resp BP Pulse Ox 10/31/17 10:41 69 18 148/96 H 97 Blood Pressure: Normal Pulse: Regular Respiratory Rate: Normal Appearance: Positive for: Well-Appearing, Non-Toxic, Comfortable Pain Distress: None Mental Status: Positive for: Alert and Oriented X 3 - Systems Exam Head: Present: Atraumatic, Normocephalic Pupils: Present: PERRL Extroacular Muscles: Present: EOMI Conjunctiva: Present: Normal Mouth: Present: Moist Mucous Membranes Neck: Present: Normal Range of Motion Respiratory/Chest: Present: Clear to Auscultation, Good Air Exchange. No: Respiratory Distress, Accessory Muscle Use Cardiovascular: Present: Regular Rate and Rhythm, Normal S1, S2. No: Murmurs Abdomen: Present: Other (left inguinal tenderness, but no signs of induration, fluctuance, or erythema). No: Distention, Peritoneal Signs Back: Present: Normal Inspection Upper Extremity: Present: Normal Inspection. No: Cyanosis, Edema Lower Extremity: Present: Normal Inspection, Other (Able to move legs up and down expect right side due to residual weakness from CVA). No: Edema Neurological: Present: GCS=15, CN II-XII Intact, Speech Normal Skin: Present: Warm, Dry, Normal Color. No: Rashes Psychiatric: Present: Alert, Oriented x 3, Normal Insight, Normal Concentration Medical Decision Making ED Course and Treatment: 10/31/17 07:24 Impression: 62 year old female presents complaining of intermittent groin pain that occurred 1 week ago that worsened day. Differential Diagnosis included but are not limited to: Musculoskeletal pain VS hernia VS Sciatica VS Kidney Stone Plan: -- CT Abd & Pelvis w/ PO Contrast -- Labs -- Toradol, Valium -- Urine Culture -- Hip left 2V w/ Pelvis X-ray -- Urinalysis -- Reassess and disposition Prior Visits: Notes and results from previous visits were reviewed. Progress Notes: 10/31/17 10:33 All her labs are unremarkable and Urinalysis still pending. Patient is still complaining of pain and claims that she has been constipated. Ordered Fleet Enema and Morphine for her. PROCEDURE: CT Abdomen and Pelvis without intravenous contrast Report Date : 10/31/2017 10:03:41 IMPRESSION: No acute findings. No evidence of inguinal hernia PROCEDURE: Left Hip and pelvis X-ray Radiographs. Dictator : Lei Casas MD Report Date : 10/31/2017 10:44:59 IMPRESSION: Normal left hip radiographs. 10/31/17 13:33 On re-evaluation, patient feels better and is in no acute distress. I have discussed the results and plan with the patient, who expresses understanding. Patient in agreement with plan to be discharged home. Patient is stable for discharge. Patient was instructed to follow up with physician or return if symptoms worsen or new concerning symptoms arise. - Lab Interpretations Lab Results: 10/31/17 08:00 10/31/17 08:00 Lab Results 10/31/17 11:40: Urine Color Yellow, Urine Appearance Clear, Urine pH 8.0, Ur Specific [place] 1.010, Urine Protein Negative, Urine Glucose (UA) Negative, Urine Ketones Negative, Urine Blood Negative, Urine Nitrate Negative, Urine Bilirubin Negative, Urine Urobilinogen 0.2, Ur Leukocyte Esterase Negative 10/31/17 09:00: PT 25.5 H, INR 2.18, APTT 37.7 H 10/31/17 08:00: Sodium 140, Potassium 4.0, Chloride 104, Carbon Dioxide 29, Anion Gap 11, BUN 15, Creatinine 0.7, Est GFR ( Amer) > 60, Est GFR (Non- Af Amer) > 60, Random Glucose 87, Calcium 8.4, Total Bilirubin 0.3, AST 39 H D, ALT 31, Alkaline Phosphatase 245 H, Total Protein 7.4, Albumin 3.7, Globulin 3.7 , Albumin/Globulin Ratio 1.0 L 10/31/17 08:00: WBC 4.4 L, RBC 4.13, Hgb 11.4 L, Hct 35.3 L, MCV 85.5, MCH 27.6 , MCHC 32.3, RDW 15.7 H, Plt Count 212, MPV 10.1, Gran % 50.2, Lymph % (Auto) 34.4, [place] % (Auto) 13.1 H, Eos % (Auto) 2.1, Baso % (Auto) 0.2, Gran # 2.19, Lymph # (Auto) 1.5, [place] # (Auto) 0.6, Eos # (Auto) 0.1, Baso # (Auto) 0.01 I have reviewed the lab results: Yes - RAD Interpretation Radiology Orders: 10/31/17 07:24 Hip Left [HIP MIN 2V W/ PELVIS LT] [RAD] Stat 10/31/17 07:26 ABDOMEN & PELVIS [ABD & PELVIS PO CONTRAST ONLY] [CT] Stat - Medication Orders Current Medication Orders: Discontinued Medications Diazepam (Valium) 5 mg PO ONCE ONE PRN Reason: Protocol Stop: 10/31/17 07:30 Last Admin: 10/31/17 07:55 Dose: 5 mg Ketorolac Tromethamine (Toradol) 15 mg IVP STAT STA Stop: 10/31/17 07:50 Last Admin: 10/31/17 08:01 Dose: 15 mg MAR Pain Assessment Document 10/31/17 08:01 PEREZ (Rec: 10/31/17 08:01 [facility] [id number]) Pain Reassessment Is this a pain reassessment? No Sleep Is patient sleeping during reassessment? No Presence of Pain Presence of Pain Yes IVP Administration Document 10/31/17 08:01 PEREZ (Rec: 10/31/17 08:01 [facility] [id number]) Charges for Administration # of IVP Administrations 1 Re-Assess: MAR Pain Assessment Document 10/31/17 09:01 SUZIEFrancis (Rec: 10/31/17 11:11 [facility] [id number]) Pain Reassessment Is this a pain reassessment? Yes Sleep Is patient sleeping during reassessment? No Presence of Pain Presence of Pain Yes Description Description Intermittent Intensity of Pain at present 4 Morphine Sulfate (Morphine) 4 mg IVP STAT STA Stop: 10/31/17 10:22 Last Admin: 10/31/17 11:11 Dose: 4 mg [facility] Pain Assessment Document 10/31/17 11:11 SUZIEFrancis (Rec: 10/31/17 11:11 [facility] [id number]) Pain Reassessment Is this a pain reassessment? No Sleep Is patient sleeping during reassessment? No Presence of Pain Presence of Pain Yes IVP Administration Document 10/31/17 11:11 SUZIEFrancis (Rec: 10/31/17 11:11 [facility] [id number]) Charges for Administration # of IVP Administrations 1 Sodium Phosphate (Fleet Enema) 135 ml RC STAT STA Stop: 10/31/17 10:29 Last Admin: 10/31/17 11:11 Dose: 135 ml - Scribe Statement The provider has reviewed the documentation as recorded by the Irma Clifford Provider Scribe Attestation: All medical record entries made by the Tashaiberik were at my direction and personally dictated by me. I have reviewed the chart and agree that the record accurately reflects my personal performance of the history, physical exam, medical decision making, and the department course for this patient. I have also personally directed, reviewed, and agree with the discharge instructions and disposition. Disposition/Present on Arrival - Present on Arrival History of DVT/PE: No History of Uncontrolled Diabetes: No Urinary Catheter: Yes (external purewik catheter) History of Decub. Ulcer: Yes History Surgical Site Infection Following: None - Disposition Diagnosis: Deep inguinal pain, left Disposition: HOME/ ROUTINE Patient Problems: Current Active Problems Problem Status Onset Deep inguinal pain, left Acute Condition: IMPROVED Discharge Instructions (ExitCare): Sciatica Prescriptions: Acetaminophen [Tylenol 325mg tab] 650 mg PO Q4 #20 tab Referrals: Keaton Rick DO [Primary Care Provider] - Follow up with primary Forms: [employer] (Filipino)
[2017-10-31] MEDS ORDERED: Iohexol 240 (50 ml) ONE (07:34)
[2017-10-31 08:16] LABS: BASO # 0.01 K/mm3 (0.0-2.0); BASO % 0.2 % (0.0-3.0); EOS # 0.1 (0.0-0.7); EOS % 2.1 % (1.5-5.0); GRAN # 2.19 (1.4-6.5); GRAN % 50.2 % (50.0-68.0); HEMOGLOBIN 11.4 g/dL (12.0-16.0); LYMPH # 1.5 (1.2-3.4); LYMPH % 34.4 % (22.0-35.0); MEAN CELL VOLUME 85.5 fl (80.0-105.0); MEAN CORPUSCULAR HEMOGLOBIN 27.6 pg (25.0-35.0); MEAN CORPUSCULAR HGB CONC 32.3 g/dl (31.0-37.0); MEAN PLATELET VOLUME 10.1 fl (7.0-11.0); MONO # 0.6 (0.1-0.6); MONO % 13.1 % (1.0-6.0); RBC 4.13 10^6/uL (3.5-6.1); RED CELL DISTRIBUTION WIDTH 15.7 % (11.5-14.5); WHITE BLOOD COUNT 4.4 10^3/ul (4.5-11.0)
[2017-10-31 08:26] LABS: ALBUMIN 3.7 g/dL (3.0-4.8); ALT/SGPT 31 U/L (7-56); AST/SGOT 39 U/L (14-36); BLOOD UREA NITROGEN 15 mg/dL (7-21); CALCIUM 8.4 mg/dL (8.4-10.5); GFR NON-AFRICAN AMERICAN > 60
[2017-10-31 09:43] LABS: INR 2.18; PARTIAL THROMBOPLASTIN TIME 37.7 Seconds (25.1-36.5); PROTHROMBIN TIME 25.5 SECONDS (9.4-12.5)
--- NOTE | 2017-10-31 10:04 | CT ---
Date of service: 10/31/2017 PROCEDURE: CT Abdomen and Pelvis without intravenous contrast HISTORY: left inguinal pain COMPARISON: None. TECHNIQUE: Without contrast.. Contrast dose: Radiation dose: Total exam DLP = 1492 mGy-cm. This CT exam was performed using one or more of the following dose reduction techniques: Automated exposure control, adjustment of the mA and/or kV according to patient size, and/or use of iterative reconstruction technique. FINDINGS: LOWER THORAX: Unremarkable. LIVER: Unremarkable. No gross lesion or ductal dilatation. GALLBLADDER AND BILE DUCTS: Gallbladder removed PANCREAS: Unremarkable. No gross lesion or ductal dilatation. SPLEEN: Unremarkable. ADRENALS: Unremarkable. No mass. KIDNEYS AND URETERS: Unremarkable. No hydronephrosis. No solid mass. VASCULATURE: Unremarkable. No aortic aneurysm. Caval filter BOWEL: Unremarkable. No obstruction. No gross mural thickening. APPENDIX: Unremarkable. Normal appendix. PERITONEUM: Unremarkable. No free fluid. No free air. LYMPH NODES: Unremarkable. No enlarged lymph nodes. BLADDER: Unremarkable. REPRODUCTIVE: Unremarkable. BONES: No acute fracture. OTHER FINDINGS: None. IMPRESSION: No acute findings. No evidence of inguinal hernia
[2017-10-31] MEDS ORDERED: Morphine 4 mg/ml ISec IVP STA (10:21)
--- NOTE | 2017-10-31 10:46 | RAD ---
PROCEDURE: Left Hip and pelvis X-ray Radiographs. HISTORY: left groin pain COMPARISON: None. FINDINGS: BONES: Normal. No fracture. JOINTS: Normal. SOFT TISSUES: Normal. OTHER FINDINGS: None. IMPRESSION: Normal left hip radiographs.
[2017-10-31 12:13] LABS: URINE BILIRUBIN NEGATIVE (NEGATIVE); URINE BLOOD NEGATIVE (NEGATIVE); URINE GLUCOSE (UA) NEGATIVE (NEGATIVE); URINE LEUKOCYTE ESTERASE NEGATIVE Leu/uL (NEGATIVE); URINE PROTEIN NEGATIVE mg/dL (<30 mg/dL); URINE UROBILINOGEN 0.2 E.U./dL (<1 E.U./dL)
[2017-10-31 12:14] LABS: URINE APPEARANCE CLEAR (CLEAR); URINE COLOR YELLOW (YELLOW)
[2017-10-31 14:30] VITALS: TEMP 98.2
[2017-10-31 15:58] VITALS: PULSE 76
[2017-10-31 16:00] VITALS: BP 141/90; RESP 16; O2SAT 97
--- NOTE | 2017-10-31 16:12 | CARD ---
APPROVED REPORT Date of service: 10/31/2017 EKG Measurement Heart [id number] <Conclusion> Sinus rhythm with 1st degree AV block T wave abnormality, consider lateral ischemia Abnormal ECG
== END 2017-10-31 16:04 | disposition home or self-care (01) ==
LOC: ED 06:03
DX: R10.30 Lower abdominal pain, unspecified (principal); E78.00 Pure hypercholesterolemia, unspecified; I48.91 Unspecified atrial fibrillation; Z79.01 Long term (current) use of anticoagulants; I69.351 Hemiplegia and hemiparesis following cerebral infarction affecting right dominant side
CPT/HCPCS: 73502; 74176; 80053; 81003; 85025; 85610; 85730; 87086; 93005; 96374; 96375; 99284; J1885; J2270; Q9966

== ENCOUNTER 2018-05-22 04:06 | Inpatient (IN) | payer MEDICARE, BC ==
[2018-05-22 04:19] VITALS: BMI 27.8
--- NOTE | 2018-05-22 04:37 | ED PDOC ---
Arrival/HPI - General Chief Complaint: Lower Extremity Problem/Injury Time Seen by Provider: 05/22/18 04:12 Historian: Patient - History of Present Illness Narrative History of Present Illness (Text): 05/22/18 04:30 Karis Pugh is a 62 year old female, whose past medical history includes CVA with right hemiparesis, hypertension, hyperlipidemia, and chronic pain, who presents to the Emergency department brought in by EMS complaining of left leg pain. Patient states her right leg gave out from under 2 days ago while at home and she fell on to her left side. Patient states she notified EMS who helped her up but did not come in for evaluation. Patient states she woke up yesterday with left leg/thigh pain and notes she was unable to stand or bear weight on the affected leg. Patient denies any fever, chills, chest pain, shortness of breath, nausea, vomiting, diarrhea, urinary symptoms, back pain, neck pain, headache, dizziness, or any other complaints. Past Medical History - Provider Review Nursing Documentation Reviewed: Yes - Infectious Disease Hx of Infectious Diseases: None - Tetanus Immunization Tetanus Immunization: Unknown - Cardiac Hx Cardiac Disorders: Yes Hx Hypertension: Yes - Pulmonary Hx Respiratory Disorders: No - Neurological HX Cerebrovascular Accident: Yes Hx Paralysis: Yes (r side paralysis) - HEENT Hx HEENT Disorder: No - Renal Hx Renal Disorder: No - Endocrine/Metabolic Hx Endocrine Disorders: No - Hematological/Oncological Hx Blood Transfusions: No Hx Blood Transfusion Reaction: No - Integumentary Hx Dermatological Disorder: No - Musculoskeletal/Rheumatological Hx Arthritis: Yes - Gastrointestinal Hx Gastrointestinal Disorders: Yes (constipation) - Genitourinary/Gynecological Hx Reproductive Disorders: Yes (hyst) - Psychiatric Hx Emotional Abuse: No Hx Physical Abuse: No Hx Substance Use: No - Surgical History Hx Cholecystectomy: Yes Hx Hysterectomy: Yes - Anesthesia Hx Anesthesia: No Hx Anesthesia Reactions: No Hx Malignant Hyperthermia: No - Suicidal Assessment Feels Threatened In Home Enviroment: No Family/Social History - Physician Review Nursing Documentation Reviewed: Yes Family/Social History: Unknown Family HX Smoking Status: Never Smoked Hx Alcohol Use: No Hx Substance Use: No Hx Substance Use Treatment: No Allergies/Home Meds Allergies/Adverse Reactions: Allergies Penicillins Allergy (Severe, Verified 10/31/17 06:35) ANAPHYLAXIS Home Medications: Home Meds Medication Instructions Recorded Confirmed Calcium Carbonate [Caltrate] 600 mg PO DAILY 07/13/11 10/31/17 Celecoxib [celeBREX] 200 mg PO DAILY 12/06/15 10/31/17 Clopidogrel [Plavix] 75 mg PO DAILY 12/06/15 10/31/17 Digoxin [Lanoxin] 0.25 mg PO DAILY 12/06/15 10/31/17 Diltiazem HCl [Tiazac] 120 mg PO DAILY 12/06/15 10/31/17 Oxycodone HCl [Oxycontin] 30 mg PO Q8 12/06/15 10/31/17 Aspirin [Aspirin Chewable] 81 mg PO DAILY 11/30/16 10/31/17 Cranberry Fruit Extract/Vit C [Azo 1 each PO DAILY 11/30/16 10/31/17 Cranberry Softgel] Folic Acid 1 mg PO DAILY 11/30/16 10/31/17 Multivitamin/Iron/Folic Acid 1 each PO DAILY 11/30/16 10/31/17 [Centrum Women Tablet] Naloxegol Oxalate [Movantik] 25 mg PO DAILY 11/30/16 10/31/17 Oxycodone HCl/Acetaminophen 1 each PO Q6 PRN 11/30/16 10/31/17 [Percocet 10-325 mg Tablet] Review of Systems - Physician Review All systems were reviewed & negative as marked: Yes - Review of Systems Constitutional: Normal. absent: Fevers Eyes: Normal ENT: Normal Respiratory: Normal. absent: SOB, Cough Cardiovascular: Normal. absent: Chest Pain Gastrointestinal: Normal. absent: Abdominal Pain, Diarrhea, Nausea, Vomiting Genitourinary Female: Normal. absent: Dysuria, Frequency, Hematuria, Urine Output Changes Musculoskeletal: Arthralgias Skin: Normal. absent: Rash Neurological: Normal. absent: Headache, Dizziness Endocrine: Normal Hemo/Lymphatic: Normal Psychiatric: Normal Physical Exam - Physical Exam Physical Exam Limitations: Clinical Condition Vital Signs Reviewed: Yes Vital Signs Temp Pulse Resp BP Pulse Ox 05/22/18 04:23 98.7 F 65 18 102/75 95 Temperature: Afebrile Blood Pressure: Normal Pulse: Regular Respiratory Rate: Normal Appearance: Positive for: Well-Appearing, Non-Toxic, Comfortable Pain Distress: None Mental Status: Positive for: Alert and Oriented X 3 - Systems Exam Head: Present: Atraumatic, Normocephalic Pupils: Present: PERRL Extroacular Muscles: Present: EOMI Conjunctiva: Present: Normal Mouth: Present: Moist Mucous Membranes Neck: Present: Normal Range of Motion Respiratory/Chest: Present: Clear to Auscultation, Good Air Exchange. No: Respiratory Distress, Accessory Muscle Use Cardiovascular: Present: Regular Rate and Rhythm, Normal S1, S2. No: Murmurs Abdomen: No: Tenderness, Distention, Peritoneal Signs Back: Present: Normal Inspection Upper Extremity: Present: Normal Inspection. No: Cyanosis, Edema Lower Extremity: No: Edema, Normal ROM (limited ROM of left lower extremity) Neurological: Present: GCS=15, CN II-XII Intact, Speech Normal Skin: Present: Warm, Dry, Normal Color. No: Rashes Psychiatric: Present: Alert, Oriented x 3, Normal Insight, Normal Concentration Medical Decision Making ED Course and Treatment: 05/22/18 04:30 Impression: 62 year old female complaining of left leg/thigh pain status post fall 2 days ago. Plan: -- CT Left Lower Extremity -- CT Pelvis -- EKG -- Labs, troponin -- Morphine -- Reassess and disposition Prior Visits: Notes and results from previous visits were reviewed. Progress Notes: pt with weakess and gait disturbance will need admission case d/w dr barrientos accepts case 05/22/18 06:23 - RAD Interpretation Radiology Orders: 05/22/18 04:31 EXT LOWER W/O CONTRAST LEFT [CT] Stat 05/22/18 04:32 PELVIS W/O PO OR IV CONTRAST [CT] Stat - Medication Orders Current Medication Orders: Morphine Sulfate (Morphine) 2 mg IVP Q4H PRN PRN Reason: Pain, moderate (4-7) - Scribe Statement The provider has reviewed the documentation as recorded by the Scriberik Gasca Provider Scribe Attestation: All medical record entries made by the Scribe were at my direction and personally dictated by me. I have reviewed the chart and agree that the record accurately reflects my personal performance of the history, physical exam, medical decision making, and the department course for this patient. I have also personally directed, reviewed, and agree with the discharge instructions and disposition. Disposition/Present on Arrival - Present on Arrival Any Indicators Present on Arrival: No History of DVT/PE: No History of Uncontrolled Diabetes: No Urinary Catheter: Yes (external purewik catheter) History of Decub. Ulcer: No History Surgical Site Infection Following: None - Disposition Have Diagnosis and Disposition been Completed?: Yes Diagnosis: Gait disturbance Disposition: HOSPITALIZED Disposition Time: 06:30 Condition: FAIR
[2018-05-22] MEDS: Morphine 2 mg/ml ISec IVP PRN ×4 (05:01→22:39)
[2018-05-22 05:11] LABS: BASO # 0.03 K/mm3 (0.0-2.0); BASO % 0.7 % (0.0-3.0); EOS # 0.1 (0.0-0.7); EOS % 2.5 % (1.5-5.0); HEMOGLOBIN 12.3 g/dL (12.0-16.0); LYMPH # 1.9 (1.2-3.4); LYMPH % 42.3 % (22.0-35.0); MEAN CELL VOLUME 87.1 fl (80.0-105.0); MEAN CORPUSCULAR HEMOGLOBIN 27.3 pg (25.0-35.0); MEAN CORPUSCULAR HGB CONC 31.4 g/dl (31.0-37.0); MEAN PLATELET VOLUME 10.2 fl (7.0-11.0); MONO # 0.5 (0.1-0.6); RBC 4.5 10^6/uL (3.5-6.1); WHITE BLOOD COUNT 4.4 10^3/uL (4.5-11.0)
[2018-05-22 05:22] LABS: INR 1.6; PARTIAL THROMBOPLASTIN TIME 35.6 Seconds (26.9-38.3); PROTHROMBIN TIME 18.1 SECONDS (9.4-12.5)
[2018-05-22 05:58] LABS: ALBUMIN 4.1 g/dL (3.0-4.8); ALT/SGPT 22 U/L (7-56); AST/SGOT 41 U/L (14-36); BLOOD UREA NITROGEN 17 mg/dL (7-21); CALCIUM 8.8 mg/dL (8.4-10.5); GFR NON-AFRICAN AMERICAN > 60
[2018-05-22 06:09] LABS: TROPONIN I 0.03 ng/mL
[2018-05-22] MEDS ORDERED: Sodium Chloride 0.9% 1,000 ML IV STA (06:25)
--- NOTE | 2018-05-22 07:51 | RAD ---
Date of service: 05/22/2018 HISTORY: weakness COMPARISON: 11/30/2016 TECHNIQUE: 1 view obtained. FINDINGS: LUNGS: No active pulmonary disease. PLEURA: No significant pleural effusion identified, no pneumothorax apparent. CARDIOVASCULAR: Aortic calcification Moderate cardiomegaly no pulmonary vascular congestion. OSSEOUS STRUCTURES: No significant abnormalities. VISUALIZED UPPER ABDOMEN: Normal. OTHER FINDINGS: None. IMPRESSION: No active disease.
--- NOTE | 2018-05-22 08:38 | CT ---
Date of service: 05/22/2018 PROCEDURE: CT pelvis HISTORY: r/o pelvic fx COMPARISON: 10/31/2017 TECHNIQUE: 2.5 mm contiguous axial sections were acquired through the pelvis. Sagittal and coronal images were reformatted from the axial scan. Total exam DLP: 1203.33 mGy-cm. This CT exam was performed using 1 or more of the following dose reduction techniques: Automated exposure control, adjustment of the mA and/or kV according to patient size, and/or use of iterative reconstruction technique. FINDINGS: There is no pelvic fracture identified. There is no lytic or blastic osseous lesion. There is mild osteoarthritis of both hips. The sacroiliac joints are unremarkable. There is no sacral fracture. Soft tissue contents of the pelvis are unremarkable. The patient is status post hysterectomy and appendectomy. No abnormal bowel loops are appreciated. There is no mass or fluid collection identified. The urinary bladder is unremarkable though poorly distended. There is atherosclerotic calcification of the abdominal aorta and iliac vessels. IMPRESSION: No pelvic fracture identified. The preliminary findings for this examination were reported by [facility] Radiology at 6:55 a.m. on 05/22/2018. There is concurrence of this report with the preliminary findings.
--- NOTE | 2018-05-22 10:14 | HP ---
DATE OF EXAM: 05/22/2018 HISTORY OF PRESENT ILLNESS: I have known her for many years. I do house calls on her. She is a 62-year-old female who presents with a fall on the left side. The left leg is in pain. The left leg gave out. It was 2 days ago. She fell on her left side. She stays home and now she getting to the point where she cannot bear weight on the left leg. I am worried that it might be broken. PAST MEDICAL HISTORY: She has a past medical history of a CVA with right-sided weakness, hypertension, high cholesterol, chronic pain and now she cannot put weight on the left leg, it is very tender to palpation. She has right-sided paralysis from an old stroke. She has a right foot drop brace to keep it from flopping. She has constipation. She has had a hysterectomy. FAMILY HISTORY: Unknown family history. SOCIAL HISTORY: No smoker. No drinking. No drugs. ALLERGIES: ALLERGY TO PENICILLIN. MEDICATIONS: She is on calcium, Celebrex, Plavix, Lanoxin, Tiazac, OxyContin from pain management, aspirin, vitamins, folic acid, multivitamins, , and Percocet from pain management. REVIEW OF SYSTEMS: No fevers, chills or sweats. No vision or hearing changes, but old. No sore throat. No chest pain or palpitations. No shortness of breath or cough. No nausea, vomiting, constipation or diarrhea. No problems urinating. She does have left leg pain. She usually has lots of pain throughout her body but now it is left leg pain. She cannot put weight on it and it is also acute. No headache or dizziness. Not anxious. PHYSICAL EXAMINATION GENERAL: She is fairly well appearing, non toxic unless she moves the left leg. Alert and oriented x3. VITAL SIGNS: She has a 98.7 temperature, 65 pulse, 18 respiratory rate, 102/75 blood pressure, 95% O2 sat on room air. HEENT: Head is atraumatic, normocephalic. Extraocular muscles are intact. Pupils equally react to light and accommodation. Throat is moist. NECK: Supple. CARDIOPULMONARY: Heart is regular rate. Normal S1, S2. LUNGS: Decreased breath sounds bilaterally, poor inspiration. No wheezes, no rhonchi, no rales. ABDOMEN: Soft, morbidly obese, nontender. No guarding, no rebound, no CVA tenderness. EXTREMITIES: She does have edema +1/4 pitting edema. She has left-sided tenderness to palpation of the entire left leg, tib-fib, knee, left femur into the pelvis. NEUROLOGIC: GCS is 15. Cranial nerves II through XII grossly intact. SKIN: Warm and dry. No apparent rashes elicited. She cannot stand on the leg now, she used to be able to do it. She is weak and it is very painful. LYMPHATICS: Thyroid midline. No palpable appreciable lymphadenopathy. LABORATORY DATA: She had numerous tests. There was a chest x-ray, which was okay, showing a large heart. The CT scan of the pelvis I believe did not show any fractures. I will order x-rays of the left hip, femur and tib-fib as that is where she is really having her pain and cannot put any pressure on it, cannot weight bear on it, I think maybe she broke something. She has a 4.4 white count, 12.3 hemoglobin, 39.2 hematocrit with 240 platelets. INR is 1.6 on Coumadin. A 140 sodium, potassium 4.1, BUN 70, creatinine 0.7, GFR is greater than 60, sugar is 90, calcium is 8.8, total bili is 0.3, AST is 41, ALT is 22, alk phos is 224. Troponin I is 0.03. Total protein is 8.2, albumin is 4.1. ASSESSMENT AND PLAN: I have ordered her medications. She is on morphine for the pain. Reading x-rays of the left femur and tib-fib, left hip. Physical therapy to evaluate and we will see what we find. We have a feeling she might need [facility] or TCU, so we will see what their recommendation is, we will send her there. Her strength is quite weak. A fall with left-sided weakness, pain, rule out fracture. Keaton Rick DO MTDD
[2018-05-22] MEDS: Digoxin 250 mcg (0.25 mg) Tab PO SCH (10:26)
[2018-05-22] MEDS: diltiaZEM 120 mg/24 Hours CD Cap PO SCH (10:27)
[2018-05-22] MEDS: NALOXEGOL OXALATE 25 MG PO SCH (10:28)
--- NOTE | 2018-05-22 12:34 | RAD ---
PROCEDURE: Left Hip X-ray Radiographs. HISTORY: fall pain COMPARISON: None. TECHNIQUE: 2 views obtained. FINDINGS: BONES: Normal. No fracture. JOINTS: Normal. SOFT TISSUES: Normal. OTHER FINDINGS: None. IMPRESSION: Normal left hip radiographs.
--- NOTE | 2018-05-22 12:34 | RAD ---
Date of service: 05/22/2018 PROCEDURE: Left Femur Radiographs. HISTORY: fall pain COMPARISON: None. TECHNIQUE: AP and Lateral Radiographs of the left femur. 4 views obtained. FINDINGS: FEMUR: Normal. No fracture. SOFT TISSUES: Normal. OTHER FINDINGS: Multi compartmental osteoarthritis of the left knee. IMPRESSION: No acute fracture. Multi compartmental osteoarthritis of the left knee.
--- NOTE | 2018-05-22 12:40 | RAD ---
Date of service: 05/22/2018 PROCEDURE: Radiographs of the left tibia and fibula. HISTORY: fall pain COMPARISON: None available. TECHNIQUE: Frontal and lateral views obtained. 2 views obtained. FINDINGS: BONES: No fracture or destructive lesion. JOINT SPACES: Degenerative changes are seen in the knee OTHER FINDINGS: None. IMPRESSION: Unremarkable radiographs of the left tibia and fibula.
--- NOTE | 2018-05-22 16:24 | CARD ---
APPROVED REPORT Date of service: 05/22/2018 EKG Measurement Heart [id number] <Conclusion> Sinus bradycardia with 1st degree AV block with frequent premature ventricular complexes ST & T wave abnormality, correlate clinically. Abnormal ECG
--- NOTE | 2018-05-22 21:21 | CP.PCM.PN ---
Subjective - Date & Time of Evaluation Date of Evaluation: 05/22/18 Time of Evaluation: 21:18 - Subjective Subjective: S:Patient requested to have Lasix that she is on. States that she did not have it today. Has no other complaints. States that her legs get swollen if she does not get her lasix. O:VSS. Not in acute distress. Alert,oriented x 3. LUNGS:Normal breathing pattern. A: Complains of swelling of legs. P: Lasix 40 mg PO x 1. Objective - Vital Signs/Intake and Output Vital Signs (last 24 hours): Temp Pulse Resp BP Pulse Ox 98.7 F 64 18 123/74 95 05/22/18 04:23 05/22/18 10:51 05/22/18 10:51 05/22/18 10:27 05/22/18 04:23 Intake and Output: 05/22/18 05/23/18 18:59 06:59 Intake Total 293 Balance 293 - Medications Medications: Current Medications Acetaminophen (Tylenol 325mg Tab) 650 mg PO Q4H PRN PRN Reason: Fever >100.5 F Aspirin (Aspirin Chewable) 81 mg PO DAILY [facility] Last Admin: 05/22/18 10:27 Dose: Not Given Calcium Carbonate (Caltrate) 600 mg PO DAILY [facility] Last Admin: 05/22/18 10:26 Dose: 600 mg Clopidogrel Bisulfate (Plavix) 75 mg PO DAILY [facility] Last Admin: 05/22/18 10:26 Dose: 75 mg Digoxin (Lanoxin) 0.25 mg PO DAILY [facility] Last Admin: 05/22/18 10:26 Dose: 0.25 mg Diltiazem HCl (Cardizem Cd) 120 mg PO DAILY [facility] Last Admin: 05/22/18 10:27 Dose: 120 mg Docusate Sodium (Colace) 100 mg PO TID [facility] Last Admin: 05/22/18 17:48 Dose: 100 mg Folic Acid (Folic Acid) 1 mg PO DAILY [facility] Last Admin: 05/22/18 10:25 Dose: 1 mg Furosemide (Lasix) 40 mg PO ONCE ONE Stop: 05/23/18 20:59 Sodium Chloride (Sodium Chloride 0.9%) 1,000 mls @ 60 mls/hr IV .[id number] STA Stop: 05/22/18 23:04 Last Admin: 05/22/18 06:40 Dose: 60 mls/hr Morphine Sulfate (Morphine) 2 mg IVP Q4H PRN PRN Reason: Pain, moderate (4-7) Last Admin: 05/22/18 14:26 Dose: 2 mg Non-Formulary Medication (Naloxegol Oxalate [Movantik]) 25 mg PO DAILY [facility] Last Admin: 05/22/18 10:28 Dose: Not Given Phenytoin Sodium (Dilantin) 100 mg PO TID [facility] Last Admin: 05/22/18 17:49 Dose: 100 mg Warfarin Sodium (Coumadin) 4 mg PO 1800 [facility] Last Admin: 05/22/18 17:48 Dose: 4 mg - Labs Labs: 05/22/18 04:57 05/22/18 04:57 PT 18.1 SECONDS (9.4-12.5) H 05/22/18 04:57 INR 1.60 05/22/18 04:57 APTT 35.6 Seconds (26.9-38.3) 05/22/18 04:57
[2018-05-23] MEDS: Morphine 2 mg/ml ISec IVP PRN ×4 (02:33→16:46)
[2018-05-23 06:43] LABS: INR 1.69; PROTHROMBIN TIME 19.1 SECONDS (9.4-12.5)
[2018-05-23 06:48] LABS: HEMOGLOBIN 12.3 g/dL (12.0-16.0); MEAN CELL VOLUME 85.7 fl (80.0-105.0); MEAN CORPUSCULAR HGB CONC 31.5 g/dl (31.0-37.0); MEAN PLATELET VOLUME 10.2 fl (7.0-11.0); RBC 4.55 10^6/uL (3.5-6.1); RED CELL DISTRIBUTION WIDTH 15.7 % (11.5-14.5); WHITE BLOOD COUNT 4.9 10^3/uL (4.5-11.0)
[2018-05-23 07:25] LABS: ALB/GLOB RATIO 0.9 (1.1-1.8); ALBUMIN 3.5 g/dL (3.0-4.8); ALT/SGPT 18 U/L (7-56); AST/SGOT 35 U/L (14-36); BLOOD UREA NITROGEN 15 mg/dL (7-21); CALCIUM 8.6 mg/dL (8.4-10.5); GFR NON-AFRICAN AMERICAN > 60
[2018-05-23] MEDS: Digoxin 250 mcg (0.25 mg) Tab PO SCH (09:32)
[2018-05-23] MEDS: diltiaZEM 120 mg/24 Hours CD Cap PO SCH (09:33)
[2018-05-23] MEDS: NALOXEGOL OXALATE 25 MG PO SCH (11:05)
--- NOTE | 2018-05-23 11:52 | CON ---
DATE OF CONSULTATION: 05/23/2018 CARDIOLOGY CONSULTATION HISTORY: The patient is a 62-year-old woman, who presents with weakness and a fall. She denies syncope. PAST MEDICAL HISTORY: The patient's past medical history is notable for CVA in the past, which has left her with a right hemiparesis. She suffers from hypertension, hyperlipidemia, and is in chronic pain, is on oxycodone. She denies chest pain, denies loss of consciousness. There is a question of whether the patient had an old inferior wall on a previous EKG. She denies dizziness. Denies shortness of breath. Her past medical history also includes, being on Coumadin, which is currently subtherapeutic. She has been discharged. She came in with home medications of aspirin, Celebrex, Coumadin, as well as Plavix. SOCIAL HISTORY: She denies smoking. REVIEW OF SYSTEMS: Review of systems were none other than what was mentioned above. PHYSICAL EXAMINATION: VITAL SIGNS: Blood pressure is 149/90, the heart rate is in the 60s. NECK: Negative JVD. LUNGS: Without rales. CARDIAC: Heart rate S1, S2. EXTREMITIES: Trace edema bilaterally. There is right upper extremity weakness and lower extremity weakness. LABORATORY DATA: Her EKG reveals sinus bradycardia with nonspecific ST-T changes. IMPRESSION: 1. Status post fall, likely due to her weakness in the right side from her cerebrovascular accident. 2. Hypertension. 3. 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 4. Chronic pain management. 5. Trace pedal edema. PLAN: Given these findings, we will obtain an echocardiogram to evaluate her LV function. We need to change some of her medications. If she is on Coumadin, we should stop her clopidogrel and continue a baby aspirin. Esdras Ortiz MD
--- NOTE | 2018-05-23 13:05 | PN ---
DATE: 05/23/2018 SUBJECTIVE: She is resting in bed, she is having low back pain. She asked me to get the MRI that Dr. Tate asked her to get on the outpatient. She is currently lying in bed in pain. She is very swollen. Actually, I did put her back on her Lasix 40 IV daily, she is on that. Aspirin, Caltrate, Cardizem, Colace, I am bumping up her Coumadin to 5 mg, Dilantin, Dulcolax, folic acid, digoxin, morphine, Plavix, and IV fluids. She had fallen, she is weak. PHYSICAL EXAMINATION: VITAL SIGNS: 97.8 temperature, 71 pulse, 147/91 blood pressure, 20 respiratory rate, 96% O2 sat. HEENT: Head is atraumatic, normocephalic. HEART: Regular rate. LUNGS: Decreased breath sounds. ABDOMEN: Soft, obese. EXTREMITIES: The right arm is weak from the stroke. LABORATORY DATA: She has a 4.9 white count, 12.3 hemoglobin, 39 hematocrit with 231 platelets. INR is up to 1.69. I will bump up to 5 mg of Coumadin. She is on 139 sodium, potassium 4.2, BUN 50, creatinine 0.7, GFR is greater than 60, sugar is 82, calcium is 8.6, total bili is 0.5, AST is 35, ALT is 18, alk phos is 229, total protein is 7.5, dig level is 1. ASSESSMENT AND PLAN: I ordered MRI as per Dr. Tate Pain Management doctor, consult to Dr. Ortiz for swelling of the lower extremities and congestive heart failure eval. She has physical therapy for the falls. She said she will go to [place] hopefully, she will go to [place] for subacute rehab, that is my goal for her. Waiting for physical therapy to see her. The patient has falls and pain. Keaton Rick DO
--- NOTE | 2018-05-23 15:57 | CARD ---
APPROVED REPORT Date of service: 05/23/2018 EXAM: Two-dimensional and M-mode echocardiogram with Doppler and color Doppler. INDICATION FALL 2D DIMENSIONS Left Atrium (2D)4.3 (1.6-4.0cm)IVSd0.8 (0.7-1.1cm) LVDd6.8 (3.9-5.9cm)PWd1.1 (0.7-1.1cm) LVDs6.0 (2.5-4.0cm)FS (%) 11.2 % LVEF (%)23.6 (>50%) M-Mode DIMENSIONS Aortic Root2.60 (2.2-3.7cm)Aortic Cusp Exc.1.70 (1.5-2.0cm) Aortic Valve AoV Peak Jwjoncug835.0cm/Chantel Peak GR.11mmHg Mitral Valve E/A ratio0.0 TDI E/Lateral E'0.0E/Medial E'0.0 Tricuspid Valve TR Peak [id number]/sRAP [id number] Peak Gr.9mmHg [id number] LEFT VENTRICLE The Left Ventricle is moderately dilated. There is normal left ventricular wall thickness. The systolic function is severely impaired. Significant regional wall motion abnormalities noted. No left ventricle thrombus noted on this study. RIGHT VENTRICLE The right ventricle is normal size. There is normal right ventricular wall thickness. The right ventricular systolic function is normal. ATRIA The left atrium is mildly dilated. The right atrium size is normal. AORTIC VALVE The aortic valve is not well visualized. No aortic regurgitation is present. There is no aortic valvular stenosis. MITRAL VALVE The mitral valve is moderately thickened. Mitral regurgitation is moderate. TRICUSPID VALVE The tricuspid valve is normal in structure. There is trace tricuspid regurgitation. PULMONIC VALVE The pulmonary valve is normal in structure. There is trace pulmonic valvular regurgitation. GREAT VESSELS The aortic root is normal in size. The IVC is normal in size and collapses >50% with inspiration. <Conclusion> The Left Ventricle is moderately dilated. There is normal left ventricular wall thickness. The systolic function is severely impaired. Significant regional wall motion abnormalities noted. No left ventricle thrombus noted on this study. Mitral regurgitation is moderate.
[2018-05-23] MEDS ORDERED: Morphine 2 mg/ml ISec IVP ONE (18:15)
--- NOTE | 2018-05-23 20:44 | CARD ---
APPROVED REPORT Date of service: 05/23/2018 EKG Measurement Heart [id number] <Conclusion> Sinus rhythm with sinus arrhythmia with 1st degree AV block ST & T wave abnormality, consider inferior ischemia ST & T wave abnormality, consider anterolateral ischemia Abnormal ECG
[2018-05-24] MEDS: Morphine 2 mg/ml ISec IVP PRN ×5 (00:33→17:09)
[2018-05-24 08:21] LABS: HEMOGLOBIN 13.4 g/dL (12.0-16.0); MEAN CELL VOLUME 85.3 fl (80.0-105.0); MEAN CORPUSCULAR HEMOGLOBIN 27.4 pg (25.0-35.0); MEAN CORPUSCULAR HGB CONC 32.1 g/dl (31.0-37.0); MEAN PLATELET VOLUME 10.2 fl (7.0-11.0); RBC 4.89 10^6/uL (3.5-6.1); RED CELL DISTRIBUTION WIDTH 15.3 % (11.5-14.5); WHITE BLOOD COUNT 4.8 10^3/uL (4.5-11.0)
[2018-05-24 08:33] LABS: ALB/GLOB RATIO 0.9 (1.1-1.8); ALBUMIN 3.7 g/dL (3.0-4.8); ALT/SGPT 12 U/L (7-56); AST/SGOT 29 U/L (14-36); BLOOD UREA NITROGEN 18 mg/dL (7-21); CALCIUM 8.9 mg/dL (8.4-10.5); GFR NON-AFRICAN AMERICAN > 60
[2018-05-24] MEDS: Digoxin 250 mcg (0.25 mg) Tab PO SCH (09:34)
[2018-05-24] MEDS: diltiaZEM 120 mg/24 Hours CD Cap PO SCH (09:35)
[2018-05-24] MEDS: NALOXEGOL OXALATE 25 MG PO SCH (09:36)
--- NOTE | 2018-05-24 12:37 | PN ---
DATE: 05/24/2018 SUBJECTIVE: She is resting comfortably in bed. She is quite weak. Physical therapy recommended [facility]. MEDICATIONS: She is on aspirin; Caltrate; Cardizem; Colace; Coumadin, adjusting that; Dilantin, folic acid, Lanoxin, Lasix, morphine as needed, and Tylenol. OBJECTIVE: VITAL SIGNS: She has 97.8 temperature, 78 pulse, 135/62 blood pressure, 20 respiratory rate, 96% O2 sat on room air. HEENT: Head is atraumatic, normocephalic. HEART: Regular rate. LUNGS: Decreased breath sounds. ABDOMEN: Soft, obese. EXTREMITIES: The right leg is flaccid and the right arm is flaccid due to a stroke. She was walking up until the fall. LABORATORY DATA: She has a 4.8 white count, 13.4 hemoglobin, 41.7 hematocrit with a 224 platelets. . Sodium 139, potassium 3.9, BUN 80, creatinine 0.7, GFR is greater than 60, sugar is 114, calcium is 8.9, total bili is 0.9, AST is 29, ALT is 12, alk phos 220. BNP is 3590. Total protein 7.7. Digoxin was 1. ASSESSMENT AND PLAN: She is being seen by Cardiology. The x-rays were negative. Adjustment of the meds as per Cardiology. We will continue with physical therapy. Hopefully in the next 24-48 hours. We will get her to [facility]. I believe she wants to go to [facility]. Jaya Rick DO MTDD
[2018-05-25] MEDS ORDERED: Bisacodyl 5mg EC Tab PO ONE ×2 (00:26→06:00)
[2018-05-25] MEDS: Morphine 2 mg/ml ISec IVP PRN ×5 (00:32→20:50)
--- NOTE | 2018-05-25 04:01 | CP.PCM.PN ---
Subjective - Date & Time of Evaluation Date of Evaluation: 05/25/18 Time of Evaluation: 03:59 - Subjective Subjective: S:I was asked to co-sign order fro Dulcolax.. Nurse states that patient has refused to take it. Went to see patient , who seems to be asleep now. O:VSS. Not in acute distress, resting comfortably. LUNGS: Normal breathing pattern. A:Constipation. P:Dulcoax will be offered to her if she asks for it . Objective - Vital Signs/Intake and Output Vital Signs (last 24 hours): Temp Pulse Resp BP Pulse Ox 97.8 F 78 20 145/62 96 05/24/18 06:00 05/24/18 06:00 05/24/18 06:00 05/24/18 09:34 05/24/18 06:00 Intake and Output: 05/24/18 05/25/18 18:59 06:59 Intake Total 1160 Output Total 500 Balance 660 - Medications Medications: Current Medications Acetaminophen (Tylenol 325mg Tab) 650 mg PO Q4H PRN PRN Reason: Fever >100.5 F Aspirin (Aspirin Chewable) 81 mg PO DAILY [facility] Last Admin: 05/24/18 09:35 Dose: Not Given Calcium Carbonate (Caltrate) 600 mg PO DAILY [facility] Last Admin: 05/24/18 09:35 Dose: 600 mg Digoxin (Lanoxin) 0.25 mg PO DAILY [facility] Last Admin: 05/24/18 09:34 Dose: 0.25 mg Diltiazem HCl (Cardizem Cd) 120 mg PO DAILY [facility] Last Admin: 05/24/18 09:35 Dose: 120 mg Docusate Sodium (Colace) 100 mg PO TID [facility] Last Admin: 05/24/18 17:09 Dose: 100 mg Folic Acid (Folic Acid) 1 mg PO DAILY [facility] Last Admin: 05/24/18 09:35 Dose: 1 mg Furosemide (Lasix) 40 mg IVP DAILY [facility] Last Admin: 05/24/18 09:34 Dose: 40 mg Morphine Sulfate (Morphine) 2 mg IVP Q4H PRN PRN Reason: Pain, moderate (4-7) Last Admin: 05/25/18 00:32 Dose: 2 mg Non-Formulary Medication (Naloxegol Oxalate [Movantik]) 25 mg PO DAILY [facility] Last Admin: 05/24/18 09:36 Dose: Not Given Phenytoin Sodium (Dilantin) 100 mg PO TID [facility] Last Admin: 05/24/18 17:09 Dose: 100 mg Warfarin Sodium (Coumadin) 5 mg PO 1800 [facility] Last Admin: 05/24/18 17:09 Dose: 5 mg - Labs Labs: 05/24/18 07:00 05/24/18 07:00 PT 19.1 SECONDS (9.4-12.5) H 05/23/18 06:25 INR 1.69 05/23/18 06:25 APTT 35.6 Seconds (26.9-38.3) 05/22/18 04:57
[2018-05-25 07:52] LABS: HEMOGLOBIN 14.4 g/dL (12.0-16.0); MEAN CELL VOLUME 84.6 fl (80.0-105.0); MEAN CORPUSCULAR HEMOGLOBIN 27.4 pg (25.0-35.0); MEAN CORPUSCULAR HGB CONC 32.4 g/dl (31.0-37.0); MEAN PLATELET VOLUME 9.9 fl (7.0-11.0); RBC 5.26 10^6/uL (3.5-6.1); RED CELL DISTRIBUTION WIDTH 15.5 % (11.5-14.5); WHITE BLOOD COUNT 5.3 10^3/uL (4.5-11.0)
[2018-05-25 07:57] LABS: INR 2.07; PROTHROMBIN TIME 23.4 SECONDS (9.4-12.5)
[2018-05-25 08:30] LABS: ALB/GLOB RATIO 0.9 (1.1-1.8); ALBUMIN 3.9 g/dL (3.0-4.8); ALT/SGPT 23 U/L (7-56); AST/SGOT 36 U/L (14-36); BLOOD UREA NITROGEN 20 mg/dL (7-21); CALCIUM 9.3 mg/dL (8.4-10.5); GFR NON-AFRICAN AMERICAN > 60
[2018-05-25] MEDS: Digoxin 250 mcg (0.25 mg) Tab PO SCH (09:47)
[2018-05-25] MEDS: diltiaZEM 120 mg/24 Hours CD Cap PO SCH (09:48)
[2018-05-25] MEDS: NALOXEGOL OXALATE 25 MG PO SCH (10:06)
--- NOTE | 2018-05-25 12:39 | PN ---
DATE: 05/25/2018 SUBJECTIVE: She is very tired in bed and weak. She did not sleep well last night. I will give her an Ambien tonight. Also she is quite constipated and I am going to give her a fleets enema today after discussing her situation. She understands now that she has to go to a subacute rehab before she goes home as per the recommendation of physical therapy. we could arrange that with licensed clinical social worker. PHYSICAL EXAMINATION VITAL SIGNS: She has a 97.8 temperature, 81 pulse, 139/67 blood pressure, 20 respiratory rate and 96% O2 sat on room air. HEENT: Head is atraumatic and normocephalic. HEART: Regular rate. LUNGS: Decreased breath sounds, but clear. ABDOMEN: Soft and obese. EXTREMITIES: She has weakness on the right side secondary to old cerebrovascular accident. She used to walk at home with brace on the right leg and foot drop brace. LABORATORY DATA: She also has 2.07 INR, on Coumadin. She has a 5.3 white count, 14.4 hemoglobin, 44.5 hematocrit with 228 platelets. She has a 140 sodium, potassium 4.1, BUN is 20, creatinine 0.6, GFR is greater than 60, sugar is 90, calcium is 9.3, total bili is 0.5, AST is 36, ALT is 23, alk phos 257 and total protein is 8.1. ASSESSMENT AND PLAN: She is being seen by Cardiology and hopefully, we will get her to subacute rehab tomorrow at the [facility] or something like that before she goes home. We will get her bowels moving with the fleets enema, Kishanien for sleep, adjusting medications. She needs to get out of bed to chair and physical therapy. Keaton Rick DO MTDD
--- NOTE | 2018-05-25 14:31 | MRI ---
Date of service: 05/25/2018 PROCEDURE: MR LUMBAR SPINE WITHOUT CONTRAST HISTORY: pain COMPARISON: None available. TECHNIQUE: Multiecho multiplanar sequences were performed through the lumbar spine without the use of intravenous contrast. FINDINGS: Normal lumbar lordosis. Vertebral body heights are preserved. Degenerative marrow signal adjacent to the endplates at L1-2, L2-3 and L4-5. Conus medullaris unremarkable at the level of Paraspinal soft tissues are unremarkable. T12-L1: No disc herniation, spinal canal stenosis or neural foraminal narrowing. L1-2: No disc herniation, spinal canal stenosis or neural foraminal narrowing. L2-3: Disc degeneration. Asymmetric disc bulge to the right. L3-4: Mild disc degeneration. Mild asymmetric disc bulge to the right. L4-5: Disc bulge and degeneration with moderate facet arthropathy. Bilateral foraminal stenosis. L5-S1: Disc bulge and degeneration with moderate facet arthropathy. OTHER FINDINGS: None. IMPRESSION: Chronic multilevel degenerative changes as described above. No evidence of acute compression fracture
[2018-05-26] MEDS: Morphine 2 mg/ml ISec IVP PRN (00:53)
[2018-05-26] MEDS ORDERED: Morphine 2 mg/ml ISec IVP STA (03:51)
--- NOTE | 2018-05-26 03:53 | CP.PCM.PCO ---
Addendum Addendum: 05/26/18 03:52 2mg morphine IVP ordered one time stat for pain as next prn dose not due yet
[2018-05-26 07:09] LABS: MEAN CELL VOLUME 85.5 fl (80.0-105.0); MEAN CORPUSCULAR HEMOGLOBIN 27.1 pg (25.0-35.0); MEAN CORPUSCULAR HGB CONC 31.7 g/dl (31.0-37.0); MEAN PLATELET VOLUME 10.4 fl (7.0-11.0); RBC 5.16 10^6/uL (3.5-6.1); RED CELL DISTRIBUTION WIDTH 15.5 % (11.5-14.5); WHITE BLOOD COUNT 6.6 10^3/uL (4.5-11.0)
[2018-05-26 07:14] LABS: INR 2.19; PROTHROMBIN TIME 24.8 SECONDS (9.4-12.5)
[2018-05-26 07:28] LABS: ALB/GLOB RATIO 0.8 (1.1-1.8); ALBUMIN 3.6 g/dL (3.0-4.8); ALT/SGPT 27 U/L (7-56); AST/SGOT 45 U/L (14-36); BLOOD UREA NITROGEN 26 mg/dL (7-21); CALCIUM 9.2 mg/dL (8.4-10.5); GFR NON-AFRICAN AMERICAN > 60
[2018-05-26] MEDS: diltiaZEM 120 mg/24 Hours CD Cap PO SCH (09:36)
[2018-05-26] MEDS: Digoxin 250 mcg (0.25 mg) Tab PO SCH (09:36)
[2018-05-26] MEDS: NALOXEGOL OXALATE 25 MG PO SCH (09:38)
[2018-05-26 09:40] VITALS: PULSE 66
[2018-05-26 16:59] VITALS: BP 127/81; PULSE 91; RESP 18; TEMP 98.2; O2SAT 97
--- NOTE | 2018-05-26 17:06 | PN ---
DATE: 05/26/2018 SUBJECTIVE: The patient is without distress. She is complaining of weakness. PHYSICAL EXAMINATION: VITAL SIGNS: Blood pressure is 122/76, heart rates in the 60s. NECK: Negative JVD. LUNGS: Without rales. HEART: S1, S2. EXTREMITIES: Without edema. LABORATORY DATA: Hemoglobin is 14. Chemistries; BUN and creatinine is 26 and 0.7. The glucose is 90. Echocardiogram reveals a severe cardiomyopathy. There is no aortic stenosis. IMPRESSION: 1. Weakness. 2. Dilated cardiomyopathy. 3. History of cerebrovascular accident. 4. Chronic pain management. Given these findings, the patient is being transferred. The patient hemodynamically stable and she is being transferred to subacute rehab today. Esdras Ortiz MD
--- NOTE | 2018-05-27 02:38 | DS ---
HISTORY OF PRESENT ILLNESS: I am hoping I can get her to [facility] today for subacute rehab. She could use it and it is recommended by PT. She is very pleasant. She knows she needs physical therapy. She is motivated. PHYSICAL EXAMINATION: VITAL SIGNS: A 97.7 temperature, 66 pulse, 122/76 blood pressure, 20 respiratory rate, and 95% O2 sat on room air. HEENT: Head is atraumatic, normocephalic. HEART: Regular rate. LUNGS: With decreased breath sounds but clear. Poor inspiration. ABDOMEN: Soft, nontender. Positive bowel sounds. Obese. EXTREMITIES: Have trace edema. NEUROLOGIC: She has right-sided weakness secondary to a CVA. MEDICATIONS: She is on Ambien, aspirin, Caltrate, Cardizem, Colace, Coumadin, Dilantin, Dulcolax enemas, folic acid, Lanoxin, Lasix, Movantik and Tylenol. LABORATORY DATA: She has a 6.6 white count, 14 hemoglobin, 44.1 hematocrit with 231 platelets. A 2.19 INR. A 142 sodium, potassium 4, BUN 26, creatinine 0.7, GFR is greater than 60, sugar is 90, calcium is 9.2, total bili is 0.4, AST is 45, ALT is 27, alk phos 241. Total protein is 7.9. ASSESSMENT AND PLAN: She had a fall. She has got a little bit weak. She needs to go for physical therapy. I am hoping we will get her discharged today to physical therapy at [facility] for subacute rehab. She could use it. She wants to go. There is a multilevel degenerative changes in the low back with arthritis. Keaton Rick DO
== END 2018-05-27 01:20 | DRG 57 ==
LOC: ED 04:06 → ERH 06:18 → 3RSO 07:49
PROVIDERS: ADMIT Family Medicine; ATTEND Family Medicine
DX: I69.351 Hemiplegia and hemiparesis following cerebral infarction affecting right dominant side (principal); I42.0 Dilated cardiomyopathy; M79.605 Pain in left leg; I10 Essential (primary) hypertension; M21.371 Foot drop, right foot; K59.00 Constipation, unspecified; G89.29 Other chronic pain; Z79.891 Long term (current) use of opiate analgesic; M19.90 Unspecified osteoarthritis, unspecified site; W19.XXXA Unspecified fall, initial encounter; E78.5 Hyperlipidemia, unspecified; E78.00 Pure hypercholesterolemia, unspecified; Z79.02 Long term (current) use of antithrombotics/antiplatelets; Z79.82 Long term (current) use of aspirin

== ENCOUNTER 2018-07-12 16:42 | Inpatient (IN) | payer MEDICARE, BC ==
[2018-07-12] MEDS ORDERED: Sodium Chloride 0.9% 1,000 ML IV STA (17:00)
--- NOTE | 2018-07-12 17:00 | ED PDOC ---
Arrival/HPI - General Chief Complaint: Weakness/Neurological Deficit Time Seen by Provider: 07/12/18 16:47 Historian: Patient - History of Present Illness Narrative History of Present Illness (Text): 07/12/18 16:59 62 year old female, with a past medical history of CVA with right hemiparesis, hypertension, hyperlipidemia, and chronic pain, who presents to the emergency department complaining of right sided pain. Patient reports she has fallen in the past, and states she is able to balance herself. Patient reports her nurse a id saw her yesterday. She denies any fever, chills, nausea, vomiting, or any other somatic complaints. PCP: Dr. Rick Specialist: Dr. Lopez Symptom Onset: Gradual Symptom Course: Unchanged Context: Home Past Medical History - Provider Review Nursing Documentation Reviewed: Yes - Infectious Disease Hx of Infectious Diseases: None - Tetanus Immunization Tetanus Immunization: Unknown - Reproductive Menopause: Yes - Cardiac Hx Cardiac Disorders: Yes Hx Hypertension: Yes - Pulmonary Hx Respiratory Disorders: No - Neurological HX Cerebrovascular Accident: Yes Hx Paralysis: Yes (r side paralysis) - HEENT Hx HEENT Disorder: No - Renal Hx Renal Disorder: No - Endocrine/Metabolic Hx Endocrine Disorders: No - Hematological/Oncological Hx Blood Transfusions: No Hx Blood Transfusion Reaction: No - Integumentary Hx Dermatological Disorder: No - Musculoskeletal/Rheumatological Hx Arthritis: Yes - Gastrointestinal Hx Gastrointestinal Disorders: Yes (constipation) - Genitourinary/Gynecological Hx Reproductive Disorders: Yes (hyst) - Psychiatric Hx Emotional Abuse: No Hx Physical Abuse: No Hx Substance Use: No - Surgical History Hx Cholecystectomy: Yes Hx Hysterectomy: Yes - Anesthesia Hx Anesthesia: No Hx Anesthesia Reactions: No Hx Malignant Hyperthermia: No - Suicidal Assessment Feels Threatened In Home Enviroment: No Family/Social History - Physician Review Nursing Documentation Reviewed: Yes Family/Social History: Unknown Family HX Smoking Status: Never Smoked Hx Alcohol Use: No Hx Substance Use: No Hx Substance Use Treatment: No Allergies/Home Meds Allergies/Adverse Reactions: Allergies Penicillins Allergy (Severe, Verified 07/12/18 16:56) ANAPHYLAXIS Home Medications: Home Meds Medication Instructions Recorded Confirmed Calcium Carbonate [Caltrate] 600 mg PO DAILY 07/13/11 10/31/17 Digoxin [Lanoxin] 0.25 mg PO DAILY 12/06/15 10/31/17 Oxycodone HCl [Oxycontin] 30 mg PO Q8 12/06/15 10/31/17 Aspirin [Aspirin Chewable] 81 mg PO DAILY 11/30/16 10/31/17 Folic Acid 1 mg PO DAILY 11/30/16 10/31/17 Naloxegol Oxalate [Movantik] 25 mg PO DAILY 11/30/16 10/31/17 Oxycodone HCl/Acetaminophen 1 each PO Q6 PRN 11/30/16 10/31/17 [Percocet 10-325 mg Tablet] Review of Systems - Physician Review All systems were reviewed & negative as marked: Yes - Review of Systems Constitutional: absent: Fevers Respiratory: absent: SOB, Cough Gastrointestinal: absent: Nausea, Vomiting Neurological: absent: Headache Physical Exam Appearance: Positive for: Well-Appearing, Non-Toxic, Uncomfortable, Other (foul smelling) Pain Distress: Mild Mental Status: Positive for: Alert and Oriented X 3 - Systems Exam Head: Present: Atraumatic, Normocephalic Pupils: Present: PERRL Extroacular Muscles: Present: EOMI Conjunctiva: Present: Normal Mouth: Present: Dry Neck: Present: Normal Range of Motion Respiratory/Chest: Present: Clear to Auscultation, Good Air Exchange. No: Respiratory Distress, Accessory Muscle Use, Wheezes, Rhonchi Cardiovascular: Present: Regular Rate and Rhythm, Normal S1, S2. No: Murmurs Abdomen: No: Tenderness, Distention, Peritoneal Signs Back: Present: Normal Inspection Upper Extremity: Present: Normal Inspection, Deformity (Contracted on right side, right up extremity held in flexion and adduction. ). No: Cyanosis, Edema Lower Extremity: Present: Normal Inspection. No: Edema Neurological: Present: GCS=15, Speech Normal Skin: Present: Warm, Dry, Normal Color. No: Rashes Psychiatric: Present: Alert, Oriented x 3, Normal Insight, Normal Concentration Medical Decision Making ED Course and Treatment: 07/12/18 16:58 Impression: 62 year old female presents to the emergency department complaining of right sided pain. Plan: -- Labs -- Toradol -- IV fluids -- Urinalysis -- Urine culture --Morphine --Merrem -- Reassess and disposition Progress Notes: 07/12/18 18:14 Labs reviewed with leukocytosis of 21.2 with hyperglycemia. VS reviewed with isolated tacycardia of 90s. Patient does not meet SIRS criteria at this time and will be treated for UTI. Merrem ordered. Discussed case with Dr. Rick(PCP) who accepts patient onto his service and requests Dr. Lopez(infectious disease) and Dr. Ortiz(cardiology). He requests for patient to receive Vitamin K and to hold Coumadin dose. - Lab Interpretations Lab Results: 07/12/18 17:34 07/12/18 17:34 Lab Results 07/12/18 18:00: Urine Color Dark yellow, Urine Appearance Slight-cloudy, Urine pH 6.5, Ur Specific [place] 1.025, Urine Protein 100 H, Urine Glucose (UA) Negative, Urine Ketones 40 H, Urine Blood Trace-lysed H, Urine Nitrate Positive H, Urine Bilirubin Moderate H, Urine Urobilinogen 1.0 H, Ur Leukocyte Esterase Trace H, Urine RBC Pending, Urine WBC Pending 07/12/18 17:34: Sodium 142, Potassium 4.0, Chloride 105, Carbon Dioxide 27, Anion Gap 13, BUN 17, Creatinine 0.7, Est GFR ( Amer) > 60, Est GFR (Non- Af Amer) > 60, Random Glucose 130 H, Calcium 8.4, Magnesium 1.9, Total Bilirubin 1.6 H, AST 46 H, ALT 29, Alkaline Phosphatase 230 H, Troponin I Pending, NT-Pro-B Natriuret Pep Pending, Total Protein 7.2, Albumin 3.7, Globulin 3.6, Albumin/Globulin Ratio 1.0 L, Lipase 24 07/12/18 17:34: PT 72.4 H, INR 6.52 H*, APTT 65.1 H 07/12/18 17:34: WBC 21.2 H D, RBC 4.37, Hgb 12.1, Hct 38.1, MCV 87.2, MCH 27.7, MCHC 31.8, RDW 16.8 H, Plt Count 300, MPV 9.3, Neut % (Auto) 89.0 H, Lymph % (Auto) 6.2 L, [place] % (Auto) 4.8, Eos % (Auto) 0.0 L, Baso % (Auto) 0.0, Lymph # (Auto) 1.3, [place] # (Auto) 1.0 H, Eos # (Auto) 0.0, Baso # (Auto) 0.01, Absolute Neuts (auto) 18.86 H I have reviewed the lab results: Yes - Scribe Statement The provider has reviewed the documentation as recorded by the Tashaiberik Stark All medical record entries made by the Tashaiberik were at my direction and personally dictated by me. I have reviewed the chart and agree that the record accurately reflects my personal performance of the history, physical exam, medical decision making, and the department course for this patient. I have also personally directed, reviewed, and agree with the discharge instructions and disposition. Disposition/Present on Arrival - Present on Arrival History of DVT/PE: No History of Uncontrolled Diabetes: No Urinary Catheter: Yes (external purewik catheter) History of Decub. Ulcer: No History Surgical Site Infection Following: None - Disposition Forms: [employer] ([place] Islander)
[2018-07-12 17:42] LABS: BASO # 0.01 K/mm3 (0.0-2.0); HEMOGLOBIN 12.1 g/dL (12.0-16.0); LYMPH # 1.3 (1.2-3.4); LYMPH % 6.2 % (22.0-35.0); MEAN CELL VOLUME 87.2 fl (80.0-105.0); MEAN CORPUSCULAR HEMOGLOBIN 27.7 pg (25.0-35.0); MEAN CORPUSCULAR HGB CONC 31.8 g/dl (31.0-37.0); MEAN PLATELET VOLUME 9.3 fl (7.0-11.0); MONO % 4.8 % (1.0-6.0); RBC 4.37 10^6/uL (3.5-6.1); RED CELL DISTRIBUTION WIDTH 16.8 % (11.5-14.5); WHITE BLOOD COUNT 21.2 10^3/uL (4.5-11.0)
[2018-07-12 17:52] LABS: ALBUMIN 3.7 g/dL (3.0-4.8); ALT/SGPT 29 U/L (7-56); AST/SGOT 46 U/L (14-36); BLOOD UREA NITROGEN 17 mg/dL (7-21); CALCIUM 8.4 mg/dL (8.4-10.5); GFR NON-AFRICAN AMERICAN > 60; LIPASE 24 U/L (23-300)
[2018-07-12 17:55] LABS: PARTIAL THROMBOPLASTIN TIME 65.1 Seconds (26.9-38.3)
[2018-07-12 18:03] LABS: INR 6.52; PROTHROMBIN TIME 72.4 SECONDS (9.4-12.5)
[2018-07-12] MEDS ORDERED: Morphine 4 mg/ml ISec IVP STA (18:07)
[2018-07-12] MEDS ORDERED: Meropenem IV 1 gm in NS 1 GM/50 ML BAG IVPB STA (18:07)
[2018-07-12 18:15] LABS: PH,URINE 6.5 (4.7-8.0); URINE APPEARANCE SLIGHT-CLOUDY (CLEAR); URINE BILIRUBIN MODERATE (NEGATIVE); URINE BLOOD TRACE-LYSED (NEGATIVE); URINE COLOR DARK YELLOW (YELLOW); URINE GLUCOSE (UA) NEGATIVE (NEGATIVE); URINE LEUKOCYTE ESTERASE TRACE Leu/uL (NEGATIVE); URINE PROTEIN 100 mg/dL (<30 mg/dL)
[2018-07-12 18:22] LABS: URINE RBC 0 - 2 /hpf (0-2)
[2018-07-12 18:23] LABS: URINE BACTERIA MANY /hpf; URINE WBC 0 - 2 /hpf (0-6)
[2018-07-12 19:03] LABS: TROPONIN I 2.13 ng/mL
[2018-07-12 19:21] LABS: B-TYPE NATRIURETIC PEPTIDE 26300 pg/mL (0-450)
[2018-07-12] MEDS: oxyCODONE 30 mg Immediate Release Tab PO SCH (22:44)
[2018-07-12 23:39] VITALS: BMI 31.8
[2018-07-13] MEDS: Meropenem IV 1 gm in NS 1 GM/50 ML BAG IVPB SCH ×3 (05:35→22:22)
[2018-07-13] MEDS: oxyCODONE 30 mg Immediate Release Tab PO SCH ×3 (05:36→22:22)
[2018-07-13 08:11] LABS: PROTHROMBIN TIME 40.9 SECONDS (9.4-12.5)
[2018-07-13 08:13] LABS: INR 3.62
[2018-07-13 08:25] LABS: BASO # 0.01 K/mm3 (0.0-2.0); BASO % 0.1 % (0.0-3.0); EOS % 0.3 % (1.5-5.0); HEMOGLOBIN 10.8 g/dL (12.0-16.0); LYMPH # 1.6 (1.2-3.4); LYMPH % 13.4 % (22.0-35.0); MEAN CELL VOLUME 86.4 fl (80.0-105.0); MEAN CORPUSCULAR HEMOGLOBIN 27.6 pg (25.0-35.0); MEAN PLATELET VOLUME 9.5 fl (7.0-11.0); MONO # 0.9 (0.1-0.6); MONO % 7.3 % (1.0-6.0); RBC 3.91 10^6/uL (3.5-6.1); RED CELL DISTRIBUTION WIDTH 17.1 % (11.5-14.5); WHITE BLOOD COUNT 11.9 10^3/uL (4.5-11.0)
[2018-07-13] MEDS ORDERED: Barium Sulfate Susp 2.1% w/v, 2.0% w/w 450 mL Bottle PO ONE (08:43)
[2018-07-13 08:44] LABS: ALB/GLOB RATIO 0.9 (1.1-1.8); ALT/SGPT 26 U/L (7-56); AST/SGOT 46 U/L (14-36); BLOOD UREA NITROGEN 21 mg/dL (7-21); GFR NON-AFRICAN AMERICAN > 60
[2018-07-13] MEDS: Oxycodone/Acetaminophen 10/325 mg Tab PO PRN (08:56)
[2018-07-13] MEDS: diltiaZEM 120 mg/24 Hours CD Cap PO SCH (09:43)
--- NOTE | 2018-07-13 12:49 | US ---
Date of service: 07/13/2018 HISTORY: size of CBD COMPARISON: None. TECHNIQUE: Sonographic evaluation of the abdomen. FINDINGS: LIVER: Measures 14 x 13.3 cm. Normal echogenicity of the liver parenchyma. No mass. No intrahepatic bile duct dilatation. GALLBLADDER: Gallbladder removed COMMON BILE DUCT: Measures 8 mm. No stones. No dilatation. PANCREAS: Unremarkable as visualized. No mass. No ductal dilatation. RIGHT KIDNEY: Measures 10.06 x 4.75 x 5.78cm. Normal echogenicity. No calculus, mass, or hydronephrosis. LEFT KIDNEY: Measures 9.15 x 4.81 x 4.93cm. Normal echogenicity. No calculus, mass, or hydronephrosis. SPLEEN: Normal in size and contour. No mass. 9.91 x 3.60 cm AORTA: Not visualized IVC: Unremarkable. OTHER FINDINGS: None. IMPRESSION: Unremarkable abdominal sonogram.
--- NOTE | 2018-07-13 12:53 | RAD ---
Date of service: 07/13/2018 PROCEDURE: CHEST RADIOGRAPH, 1 VIEW HISTORY: r/o infiltrate COMPARISON: 05/22/2018 FINDINGS: LUNGS: Clear. PLEURA: No pneumothorax or pleural fluid seen. CARDIOVASCULAR: Aortic calcification moderate cardiomegaly and mild vascular congestion OSSEOUS STRUCTURES: No significant abnormalities. VISUALIZED UPPER ABDOMEN: Normal. OTHER FINDINGS: None. IMPRESSION: moderate cardiomegaly and mild vascular congestion
--- NOTE | 2018-07-13 13:02 | CT ---
Date of service: 07/13/2018 PROCEDURE: CT Abdomen and Pelvis without intravenous contrast HISTORY: wbc of 21k wit inc LFT s r/o gb ds COMPARISON: 10/31/2017 TECHNIQUE: Without contrast.. Contrast dose: Radiation dose: Total exam DLP = 1033.26 mGy-cm. This CT exam was performed using one or more of the following dose reduction techniques: Automated exposure control, adjustment of the mA and/or kV according to patient size, and/or use of iterative reconstruction technique. FINDINGS: LOWER THORAX: Unremarkable. LIVER: Unremarkable. No gross lesion or ductal dilatation. GALLBLADDER AND BILE DUCTS: Gallbladder removed PANCREAS: Unremarkable. No gross lesion or ductal dilatation. SPLEEN: Unremarkable. ADRENALS: Unremarkable. No mass. KIDNEYS AND URETERS: Unremarkable. No hydronephrosis. No solid mass. VASCULATURE: Caval filter. Aortic calcification BOWEL: Unremarkable. No obstruction. No gross mural thickening. APPENDIX: Unremarkable. Normal appendix. PERITONEUM: Unremarkable. No free fluid. No free air. LYMPH NODES: Unremarkable. No enlarged lymph nodes. BLADDER: Unremarkable. REPRODUCTIVE: Unremarkable. BONES: Multilevel disc degeneration OTHER FINDINGS: None. IMPRESSION: No acute findings. The gallbladder has been removed.
--- NOTE | 2018-07-13 13:26 | CARD ---
APPROVED REPORT Date of service: 07/12/2018 EKG Measurement Heart [id number] <Conclusion> Sinus tachycardia with 1st degree AV block with occasional premature ventricular complexes ST & T wave abnormality, consider lateral ischemia Abnormal ECG
[2018-07-13] MEDS: Digoxin 250 mcg (0.25 mg) Tab PO SCH (14:38)
--- NOTE | 2018-07-13 18:30 | HP ---
DATE OF EXAM: 07/13/2018 HISTORY OF PRESENT ILLNESS: I know Karis Pugh very well for many years, she is doing house calls. She is a very pleasant 62-year-old female, who came into the emergency room complaining of right-sided pain. She had fallen in the past, and she had to come to the hospital. PAST MEDICAL HISTORY: She has a past medical history of a CVA that is old with right weakness. She gets around with a brace and a splint. She has hypertension, high cholesterol, chronic pain, atrial fibrillation, she is on Coumadin. She had right-sided paralysis from an old stroke, arthritis, constipation, hysterectomy, cholecystectomy. SOCIAL HISTORY: Nonsmoker. No drinking. No drugs. ALLERGIES: PENICILLIN. MEDICATIONS: She takes Caltrate, Lanoxin, OxyContin, aspirin, folic acid, Movantik, Coumadin, and warfarin. PHYSICAL EXAMINATION: GENERAL: She is well-appearing, comfortable at this time. No foul smelling. Alert and oriented x3. VITAL SIGNS: She has 97.6 temperature, 69 pulse, 118/75 blood pressure, 20 respiratory rate, 95% O2 sat on room air. HEENT: Head is atraumatic, normocephalic. Extraocular muscles are intact. Pupils equal and reactive to light and accommodation. Throat is moist. NECK: Supple. HEART: Regular rate. Normal S1 and S2. LUNGS: Decreased breath sounds, poor inspiration but clear to auscultation. No wheezes, no rhonchi, no rales. ABDOMEN: Soft, nontender, positive bowel sounds. Obese. EXTREMITIES: Right side got some contraction deformity in upper and lower extremities. She has with a brace on the knee and a footdrop brace on her right foot. She has got +2 pitting edema bilaterally. NEUROLOGIC: GCS is 15. Cranial nerves II-XII are grossly intact. Alert and oriented x3. Very difficult for her to talk that she has been a word-finding problem, which I think is new from the last time I saw her. I will consult neuro for their opinion. SKIN: Warm and dry. Poor turgor. Alert and oriented x3. DIAGNOSTIC DATA: She had multiple tests done. She has a urine, which has moderate bili, many bacteria. A 142 sodium, it is 141 now, chloride is 109, BUN is 21, creatinine 0.7, GFR is greater than 60, sugar is 99. Calcium is 8, magnesium is 1.9, total bili is 1.1. AST is 46, ALT is 26, alk phos 196, troponin of 2.13 and it came down to 1.96. Total protein is 6.4. Lipase was 24. Coagulation INR was 6.52 when she came in, it is down to 3.62 without any bleeding. Sugar was 21.2 when she entered into the hospital, it is down to 11.9 on the antibiotics. She had 12.1 hemoglobin, it is down to 10.8, 33.8 hematocrit with 278 platelets. ASSESSMENT AND PLAN: She has multiple issues going on. She is having an elevated leukocytosis with urinary tract infection and coagulopathy, possibly non-ST elevation myocardial infarction, congestive heart failure with an old cerebrovascular accident with right-sided paralysis. a very aggressive treatment to have a consult with Infectious Disease with antibiotics and Cardiology. She is already put on Merrem IV and the beta-manisha, we will watch her very closely. Keaton Rick DO [email or web address]
[2018-07-13] MEDS ORDERED: Albuterol-Ipratrop 3 mg / 0.5 (3 ml) UD IH PRN (20:17)
--- NOTE | 2018-07-13 22:10 | CON ---
DATE: 07/13/2018 HISTORY OF PRESENT ILLNESS: The patient is a 62-year-old woman who was recently discharged two months ago. She complains of right-sided pain with chronic dizziness. The patient had multiple falls in the past. Her cardiac workup included an echocardiogram that shows a severe dilated cardiomyopathy. She was sent home on Coumadin and she was found to have her INR to be 6. In addition, her troponins were found to be elevated. The patient's history ability is difficult. She complains of pain in the right lower extremity. No chest pain noted. No dyspnea. REVIEW OF SYSTEMS: Is unreliable, however, the patient had a previous CVA. PHYSICAL EXAMINATION: VITAL SIGNS: Blood pressure 125/76. The heart rate is sinus rhythm in the 90s. NECK: Negative JVD. LUNGS: Without rales. HEART: S1, S2. EXTREMITIES: Without edema. LABORATORY DATA: EKG shows sinus rhythm with frequent PVCs. The laboratories show that the peak INR is down from 6 to 3.62 today. Chemistries; troponins was 2.13 on admission to 1.96. BUN and creatinine are unremarkable. The hemoglobin is 10.1. IMPRESSION 1. Non-ST segment elevation myocardial infarction. 2. History of cerebrovascular accident. 3. Nonspecific right-sided lower extremity discomfort. 4. Hypertension. 5. Coronary artery disease. 6. Hypercholesterolemia. 7. Cardiomyopathy. 8. Anemia. 9. Coagulopathy. PLAN: Given these findings, no anticoagulation is necessary at this time until INR comes back to normal. We will obtain Doppler through lower extremities to rule out DVT. Esdras Ortiz MD
--- NOTE | 2018-07-13 22:36 | CON ---
DATE: 07/13/2018 Room 275, Bed 1 CHIEF COMPLAINT: Right-sided arm pain times several days. 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 Infectious Disease consultation requested. The patient does respond and answers questions, although she does so slowly. The only information available at this time is the emergency room chart which states that the patient has cerebrovascular accident, right hemiparesis, hypertension, hyperlipidemia, chronic pain, admitted with right-sided pain. She states it is right-sided in arm, right-sided in the chest also. There have been no fevers, no chills. She is having abdominal pain. Abdominal pain is epigastric in area. There is no nausea or vomiting. No fevers or chills. No dysuria or frequency. REVIEW OF SYSTEMS: Twelve-point review of systems is performed. PAST MEDICAL HISTORY: Significant for recent hospitalization, morbid obesity, hypertension, coronary artery disease, DVT, left CVA with right hemiparesis, atrial fibrillation, hyperlipidemia, and chronic pain and arthritis. PAST SURGICAL HISTORY: Significant for hysterectomy, cholecystectomy, IVC filter, and suprapubic catheter. ALLERGIES: THE PATIENT IS ALLERGIC TO PENICILLIN, THE TYPE OF ALLERGY IS NOT ENTIRELY CLEAR. MEDICATIONS AT HOME: Reviewed, include tramadol, Coumadin, OxyContin. PHYSICAL EXAMINATION: GENERAL: She is in bed, in no acute distress. VITAL SIGNS: Temperature of 98; heart rate of 94-98; respiratory rate of 20, respiratory rate was up to 25 in the emergency room; blood pressure of 141/85. HEENT: Unremarkable. NECK: Supple. LUNGS: Have decreased breath sounds. HEART: Normal S1, S2. ABDOMEN: There is mild tenderness in the mid abdomen. No rebound, no guarding, no masses. LABORATORY EXAMINATION: Reveals the patient's white count of 21,000, hemoglobin of 12, platelets of 300. Chemistries are noted with a troponin of 2.13, alk phos of 230, AST is 46, random glucose is 130. The patient did have an echo on 05/23/2018, which showed a left ventricular ejection fraction of 23.6%. ASSESSMENT AND PLAN: This is a 62-year-old female who is presenting with sepsis with gastrointestinal source of the sepsis, with acute systolic congestive heart failure on top of chronic systolic congestive heart failure with [id number] myocardial infarction. We will order a CAT scan of the abdomen and pelvis, chest x-ray, blood cultures, urine cultures, and HIV test because of her age, and treat the patient with meropenem pending initial workup. We will also order an ultrasound of the abdomen and get the size of the common bile duct, although she has had a cholecystectomy. With a mild elevation of alk phos at 230 and troponin of 2.13 and an elevation of glucose, we will order hemoglobin A1c, CBC, and SMA-18, and we will make further recommendations. We will discuss the case with PMD. Santosh Lopez MD
[2018-07-14] MEDS: Meropenem IV 1 gm in NS 1 GM/50 ML BAG IVPB SCH ×2 (06:09→14:47)
[2018-07-14] MEDS: oxyCODONE 30 mg Immediate Release Tab PO SCH ×3 (06:10→21:00)
[2018-07-14] MEDS: diltiaZEM 120 mg/24 Hours CD Cap PO SCH (09:12)
[2018-07-14 09:17] LABS: MEAN CELL VOLUME 87.1 fl (80.0-105.0); MEAN CORPUSCULAR HEMOGLOBIN 27.4 pg (25.0-35.0); MEAN CORPUSCULAR HGB CONC 31.4 g/dl (31.0-37.0); MEAN PLATELET VOLUME 9.5 fl (7.0-11.0); RBC 4.02 10^6/uL (3.5-6.1); RED CELL DISTRIBUTION WIDTH 17.2 % (11.5-14.5); WHITE BLOOD COUNT 8.1 10^3/uL (4.5-11.0)
[2018-07-14 09:28] LABS: ALB/GLOB RATIO 0.9 (1.1-1.8); ALBUMIN 3.1 g/dL (3.0-4.8); ALT/SGPT 25 U/L (7-56); AST/SGOT 39 U/L (14-36); BLOOD UREA NITROGEN 21 mg/dL (7-21); GFR NON-AFRICAN AMERICAN > 60
[2018-07-14 09:47] LABS: TROPONIN I 1.19 ng/mL
--- NOTE | 2018-07-14 10:52 | PN ---
DATE: 07/14/2018 SUBJECTIVE: She is resting comfortably in bed. She slept fairly well last night. She is feeling a little bit better overall. She out of bed to chair. She needs physical therapy recommendation. She is eating a little bit better. MEDICATIONS: She is on Ambien, aspirin, Cardizem, Colace, Dilantin, DuoNebs, Lanoxin, Lasix, Lopressor, Merrem IV oxycodone, Percocet and Tylenol. PHYSICAL EXAMINATION: VITAL SIGNS: She has a 97.6 temperature, 69 pulse, 144/76 blood pressure, 20 respiratory rate 100% O2 sat on nasal cannula. HEENT: Head is atraumatic, normocephalic. She is alert, talking better than the other day. HEART: Regular rate. LUNGS: Decreased breath sounds, but clear. ABDOMEN: Soft, obese, nontender. Right side is weak from an old CVA. LABORATORY DATA: She has 11.9 white count yesterday, 10.8 hemoglobin, 32.8 hematocrit with a 278 platelets. Labs are pending this morning. Sodium 141, potassium is 4, hemoglobin A1c is 5.8, last troponin was 1.96, total protein 6.4. Micros Gram-positive cocci in the urine. Chest x-ray shows moderate cardiomegaly and mild vascular congestion. ASSESSMENT AND PLAN: She has urinary tract infection, coagulopathy, and non-ST elevation myocardial infarction, congestive heart failure and we will see if she does not need to go to rehab for old cerebrovascular accident. Continue with aggressive treatment and care. Keaton Rick DO [facility]
--- NOTE | 2018-07-14 12:26 | PN ---
DATE: 07/14/2018 SUBJECTIVE: The patient is in a chair without chest pain. PHYSICAL EXAMINATION: VITAL SIGNS: Blood pressure 144/76, heart rate is in the 70s, normal sinus rhythm. NECK: Negative JVD. LUNGS: Without rales. HEART: S1, S2. EXTREMITIES: Without edema. The patient has right-sided weakness. LABORATORY DATA: Hemoglobin is 11. Troponins are on a downward trend to 1.19. BUN and creatinine is unremarkable. No INR was done today. IMPRESSION: 1. Coagulopathy, secondary to her Coumadin. 2. Non-ST elevation myocardial infarction. 3. History of cerebrovascular accident. 4. Dilated cardiomyopathy. 5. Coronary artery disease. PLAN: Given these findings, we will continue the patient on beta-blockers for her non-STEMI at this time. No anticoagulation. We will recheck the PT/INR. We will consider cardiac catheterization after checking her INR. Esdras Ortiz MD
[2018-07-14 13:24] LABS: INR 1.81; PROTHROMBIN TIME 20.1 SECONDS (9.4-12.5)
--- NOTE | 2018-07-14 14:16 | CP.PCM.PCO ---
Additional Comments - Additional Comments Additional Comments: elevated troponin, continue IV lasix, cardiology following, venous duplex results pending, UTI continue antibiotics as per ID, repeat labs in am
[2018-07-14] MEDS: Digoxin 250 mcg (0.25 mg) Tab PO SCH (14:48)
--- NOTE | 2018-07-14 15:48 | US ---
PROCEDURE: Right lower extremity venous US HISTORY: Leg pain and swelling. Evaluate for DVT. PHYSICIAN(S): Esdras Montejo M.D. TECHNIQUE: Duplex sonography and color-flow Doppler with graded compression were used to evaluate the deep venous system of the right lower extremity. FINDINGS: There is subacute/chronic occlusive DVT noted in the right femoral and popliteal veins. The right common femoral vein is patent and compressible IMPRESSION: 1. Subacute/chronic DVT in the left femoral and popliteal veins.
--- NOTE | 2018-07-14 19:07 | PN ---
DATE: 07/14/2018 SUBJECTIVE: The patient was seen earlier today in room 275, bed 1. The patient is in no acute distress, nontoxic. PHYSICAL EXAMINATION VITAL SIGNS: Temperature is 97, blood pressure is 106/70, respiratory rate 16. HEENT: Unremarkable. NECK: Supple. LUNGS: Have decreased breath sounds. HEART: Normal S1, S2. ABDOMEN: Soft. LABORATORY EXAMINATION: Reveals a white count of 8.1 and hemoglobin of 11. Troponin is noted. Chemistries are noted. Urinalysis is noted. Microbiology reveals Enterococcus faecalis in the urine and blood cultures are negative. REVIEW OF ORDERS: Reveals the patient to be on meropenem and Dr. Esdras Montejo's ultrasound report is reviewed. Dr. Ortiz's Cardiology report is also reviewed. ASSESSMENT AND PLAN: A 62-year-old female with history of obesity, body mass index of 31, recent hospitalization, hypertension, coronary artery disease, deep venous thrombosis, history of a left cerebrovascular accident and right hemiparesis, in atrial fibrillation, chronic pain syndrome, arteritis, admitted with a right-sided chest pain and leukocytosis. Blood cultures are negative. Urine culture with Enterococcus, but negative urinalysis. The patient with SIRS, systemic inflammatory response syndrome with leukocytosis, tachycardia and dyspnea. The patient's CT scan of the abdomen and pelvis is unremarkable. The patient with a non-ST elevation myocardial infarction. We will discontinue the meropenem. The Enterococcus in the urine, asymptomatic bacteriuria with a negative urinalysis does not require treatment, so we will discontinue the meropenem. The patient is at risk for developing nosocomial infections Santosh Lopez MD
--- NOTE | 2018-07-14 21:17 | CP.PCM.PN ---
Subjective - Date & Time of Evaluation Date of Evaluation: 07/14/18 Time of Evaluation: 21:17 - Subjective Subjective: Patient was seen at bedside because medical collections representative had asked me to cosign the order of Dulcolax suppository rectally x1. Patient has no acute symptoms. Has been constipated. Oxycodone and MiraLAX at home. Medical record was reviewed. This 62-year-old woman was admitted with right-sided pain, she had a history of fall. She has past medical history of CVA with right-sided weakness, hypertension, high cholesterol, chronic pain, atrial fibrillation, on Coumadin, arthritis, constipation, hysterectomy, cholecystectomy. Has allergy to penicillin. Objective - Vital Signs/Intake and Output Vital Signs (last 24 hours): Temp Pulse Resp BP Pulse Ox 97.7 F 92 H 20 120/78 100 07/14/18 17:22 07/14/18 18:00 07/14/18 17:22 07/14/18 17:22 07/14/18 06:00 - Medications Medications: Current Medications Acetaminophen (Tylenol 325mg Tab) 650 mg PO Q4H PRN PRN Reason: Fever >100.4 F Albuterol/Ipratropium (Duoneb 3 Mg/0.5 Mg (3 Ml) Ud) 3 ml IH Q2H PRN PRN Reason: Shortness of Breath Last Admin: 07/13/18 20:54 Dose: 3 ml Apixaban (Eliquis) 5 mg PO BID [facility]; Protocol Last Admin: 07/14/18 17:45 Dose: 5 mg Aspirin (Aspirin Chewable) 81 mg PO DAILY [facility] Last Admin: 07/14/18 09:12 Dose: 81 mg Digoxin (Lanoxin) 0.25 mg PO 1400 [facility] Last Admin: 07/14/18 14:48 Dose: 0.25 mg Diltiazem HCl (Cardizem Cd) 120 mg PO DAILY [facility] Last Admin: 07/14/18 09:12 Dose: 120 mg Docusate Sodium (Colace) 100 mg PO TID [facility] Last Admin: 07/14/18 17:54 Dose: 100 mg Furosemide (Lasix) 40 mg IVP DAILY [facility] Last Admin: 07/14/18 09:13 Dose: 40 mg Metoprolol Tartrate (Lopressor) 25 mg PO BID [facility] Last Admin: 07/14/18 17:45 Dose: 25 mg Oxycodone HCl (Oxycodone Immediate Release Tab) 30 mg PO Q8 [facility] Last Admin: 07/14/18 21:00 Dose: 30 mg Oxycodone/Acetaminophen (Percocet 10/325 Mg Tab) 1 tab PO Q6H PRN PRN Reason: Pain, moderate (4-7) Last Admin: 07/13/18 08:56 Dose: 1 tab Phenytoin Sodium (Dilantin) 100 mg PO TID [facility] Last Admin: 07/14/18 17:55 Dose: 100 mg Zolpidem Tartrate (Ambien) 5 mg PO HS PRN; Protocol PRN Reason: Insomnia - Labs Labs: 07/14/18 08:55 07/14/18 08:55 PT 20.1 SECONDS (9.4-12.5) H 07/14/18 13:10 INR 1.81 07/14/18 13:10 APTT 65.1 Seconds (26.9-38.3) H 07/12/18 17:34 - Constitutional Appears: Well, No Acute Distress - Head Exam Head Exam: ATRAUMATIC, NORMAL INSPECTION, NORMOCEPHALIC - Eye Exam Eye Exam: Normal appearance - ENT Exam ENT Exam: Normal External Ear Exam - Neck Exam Neck Exam: Normal Inspection - Respiratory Exam Respiratory Exam: NORMAL BREATHING PATTERN - Cardiovascular Exam Cardiovascular Exam: absent: JVD - GI/Abdominal Exam GI & Abdominal Exam: absent: Distended - Rectal Exam Rectal Exam: Deferred - Exam Additional comments: Deferred. - Extremities Exam Extremities Exam: Normal Inspection - Back Exam Back Exam: NORMAL INSPECTION - Neurological Exam Neurological Exam: Alert, Awake, Oriented x3 - Psychiatric Exam Psychiatric exam: Normal Affect - Skin Skin Exam: Normal Color Assessment and Plan - Assessment and Plan (Free Text) Assessment: Constipation CVA with right-sided weakness Hypertension Hypercholesterolemia Chronic pain Atrial fibrillation Ascites History of hysterectomy History of cholecystectomy Allergies to penicillin Overweight. Plan: Dulcolax rectal suppository. Continue present management.
[2018-07-15] MEDS: oxyCODONE 30 mg Immediate Release Tab PO SCH ×3 (07:41→21:25)
[2018-07-15 07:43] LABS: HEMOGLOBIN 11.1 g/dL (12.0-16.0); MEAN CELL VOLUME 87.2 fl (80.0-105.0); MEAN CORPUSCULAR HGB CONC 32.1 g/dl (31.0-37.0); MEAN PLATELET VOLUME 9.5 fl (7.0-11.0); RBC 3.97 10^6/uL (3.5-6.1); RED CELL DISTRIBUTION WIDTH 17.2 % (11.5-14.5); WHITE BLOOD COUNT 6.7 10^3/uL (4.5-11.0)
[2018-07-15 07:49] LABS: INR 1.83; PROTHROMBIN TIME 20.7 SECONDS (9.4-12.5)
[2018-07-15 08:07] LABS: ALB/GLOB RATIO 0.9 (1.1-1.8); ALT/SGPT 27 U/L (7-56); AST/SGOT 36 U/L (14-36); BLOOD UREA NITROGEN 20 mg/dL (7-21); GFR NON-AFRICAN AMERICAN > 60
[2018-07-15] MEDS: Oxycodone/Acetaminophen 10/325 mg Tab PO PRN (10:36)
[2018-07-15] MEDS: diltiaZEM 120 mg/24 Hours CD Cap PO SCH (10:36)
--- NOTE | 2018-07-15 10:44 | PN ---
DATE: 07/15/2018 SUBJECTIVE: Karis is resting comfortably in bed. She slept fairly well. She tells me legs are quite swollen today and I agree with her. I will increase her Lasix to 40 b.i.d. IV. She has CHF, edema, sepsis, UTI coagulopathy. She is now on Eliquis, off Coumadin, NSTEMI, CHF. She has a CVA with right-sided weakness which is old. She is feeling a little bit swollen today. She says the legs are more swollen. I will increase the Lasix. PHYSICAL EXAMINATION: VITAL SIGNS: She has a 97.5 temperature, 85 pulse, 136/88 blood pressure, 20 respiratory rate, 95% sat on 3 liters. HEENT: Head is atraumatic, normocephalic. HEART: Regular rate. LUNGS: Decreased breath sounds, but clear. ABDOMEN: Soft, obese. EXTREMITIES: There is more than +2 edema, maybe +3 edema. Her right side is weak from an old stroke. LABORATORY DATA: She has a 141 sodium, potassium 3.8, BUN is 20, creatinine 0.6, GFR is greater than 60, sugar is 93, calcium is 8. Total bili is 0.8. AST is 36, ALT is 27, alk phos 181, last troponin is 1.19, total protein 6.4. White count of 6.7 it was high as 21.2, hemoglobin 11.1, hematocrit 34.6, platelets of 288. Urine has many bacteria, trace. Microbiology, Enterococcus in the urine. ASSESSMENT AND PLAN: She is being seen by Infectious Disease, Cardiology. She is on Merrem right now, IV antibiotics. She was constipated. She has elevated troponins, CHF, edema, the edema has gotten worse, increase IV Lasix, urinary tract infection on antibiotics. The ultrasound did show a subacute on chronic deep venous thrombosis. She was placed on beta-blockers. She is on Eliquis. Continue IV antibiotics, physical therapy. Keaton Rick DO
--- NOTE | 2018-07-15 15:39 | PN ---
DATE: 07/15/2018 CARDIOLOGY FOLLOWUP SUBJECTIVE: The patient is without complaints, but is to discuss possible catheterization. PHYSICAL EXAMINATION: VITAL SIGNS: Blood pressure 121/85 and heart rates in the 80s. NECK: Negative JVD. HEART: S1, S2. LUNGS: Without rales. EXTREMITIES: Without edema. LABORATORY DATA: INR is down to 1.83. Chemistries, BUN and creatinine unremarkable. The troponin is downward trend to 1.19. IMPRESSION: 1. Improved coagulopathy. 2. Non-ST elevation myocardial infarction. 3. Coronary artery disease. 4. Dilated cardiomyopathy. 5. High probability for coronary artery disease. 6. History of cerebrovascular accident. PLAN: Given these findings, we will discuss with the patient tomorrow about the potential for catheterization now that INR is improving. We will check her PT/INR in the morning. Esdras Ortiz MD
[2018-07-15] MEDS: Digoxin 250 mcg (0.25 mg) Tab PO SCH (16:29)
--- NOTE | 2018-07-16 00:37 | PN ---
DATE: 07/15/2018 SUBJECTIVE: The patient is in bed, in no acute distress, nontoxic. PHYSICAL EXAMINATION: VITAL SIGNS: Temperature is 97, blood pressure is 120/80, respiratory rate of 18. HEENT: Unremarkable. NECK: Supple. LUNGS: Have decreased breath sounds. HEART: Normal S1, S2. ABDOMEN: Soft. LABORATORY DATA: Reveals the white count of 6.7. Review of orders reveals the patient to be off of antibiotics. The patient has Enterococcus in the urine. Her blood cultures are negative. ASSESSMENT AND PLAN: This is a 62-year-old female with history of obesity, body mass index of 31, recent hospitalization, hypertension, coronary artery disease, deep venous thrombosis, history of left cerebrovascular accident, right hemiparesis, atrial fibrillation, chronic pain syndrome, admitted with right-sided chest pain and leukocytosis. Blood cultures are negative. Urine cultures are Enterococcus. Negative urinalysis. No urinary symptoms with systemic inflammatory response syndrome and with non-ST elevation myocardial infarction, asymptomatic bacteriuria, off of antibiotics. Santosh Lopez MD
[2018-07-16] MEDS: oxyCODONE 30 mg Immediate Release Tab PO SCH ×3 (05:25→22:39)
[2018-07-16 07:30] LABS: HEMOGLOBIN 10.9 g/dL (12.0-16.0); MEAN CELL VOLUME 87.3 fl (80.0-105.0); MEAN CORPUSCULAR HEMOGLOBIN 27.3 pg (25.0-35.0); MEAN CORPUSCULAR HGB CONC 31.2 g/dl (31.0-37.0); MEAN PLATELET VOLUME 9.3 fl (7.0-11.0); RED CELL DISTRIBUTION WIDTH 17.1 % (11.5-14.5); WHITE BLOOD COUNT 5.6 10^3/uL (4.5-11.0)
[2018-07-16 07:32] LABS: INR 1.84; PROTHROMBIN TIME 20.8 SECONDS (9.4-12.5)
[2018-07-16 07:51] LABS: ALB/GLOB RATIO 0.9 (1.1-1.8); ALBUMIN 2.9 g/dL (3.0-4.8); ALT/SGPT 38 U/L (7-56); AST/SGOT 42 U/L (14-36); BLOOD UREA NITROGEN 20 mg/dL (7-21); CALCIUM 7.7 mg/dL (8.4-10.5); GFR NON-AFRICAN AMERICAN > 60
[2018-07-16] MEDS: diltiaZEM 120 mg/24 Hours CD Cap PO SCH (10:45)
--- NOTE | 2018-07-16 13:08 | PN ---
DATE: 07/16/2018 SUBJECTIVE: I saw Karis resting comfortably in bed. She slept well. She is taking her medicines well. She is eating well. She needs to go to TCU. She wants to go to TCU for physical therapy. She is having cardiac cath on Saturday with Dr. Ortiz. PHYSICAL EXAMINATION: GENERAL: She is smiling. VITAL SIGNS: She has a 97.6 temperature, 79 pulse, 134/87 blood pressure, 20 respiratory rate, 96% O2 sat. HEENT: Head is atraumatic and normocephalic. HEART: Regular rate and rhythm. LUNGS: Decreased breath sounds but clear. ABDOMEN: Soft, obese. EXTREMITIES: Her right side is weak secondary to a stroke from a while back. She has fallen a few times therapy before she will go home. MEDICATIONS: Ambien, aspirin, Cardizem, Colace, Dilantin, DuoNebs, Eliquis, Lanoxin, Lasix, Lopressor, oxycodone, Percocet, Tylenol. LABORATORY DATA: She has 5.6 white count, 10.9 hemoglobin, 34.9 hematocrit with 308 platelets. INR is 1.84. Sodium 139, potassium 3.8, BUN 20, creatinine 0.7, GFR greater than 60, sugar is 90, calcium is 7.7. Total bilirubin is 0.5, AST is 42, ALT is 38, alk phos 167, total protein 6.1. Urine with many bacteria. HIV is negative. ASSESSMENT: She has congestive heart failure, sepsis, urinary tract infection, coagulopathy, old cerebrovascular accident, non-ST elevation myocardial infarction, left deep venous thrombosis. PLAN: We will continue with aggressive treatment and care. She is being seen by Infectious Disease and Cardiology. Zolpidem, aspirin, Cardizem, Colace, Dilantin, DuoNebs, Eliquis, Lanoxin, Lasix, Lopressor, oxycodone, Percocet, and Tylenol. We will watch closely. She had SIRS, non-ST elevation myocardial infarction. Cath on Saturday, then TCU. Jaya Rick DO [facility] # [id number] [facility]
--- NOTE | 2018-07-16 13:22 | PN ---
DATE: 07/16/2018 CARDIOLOGY FOLLOWUP SUBJECTIVE: The patient is chest pain-free. PHYSICAL EXAMINATION: VITAL SIGNS: Blood pressure 134/87, heart rates in the 80s. Physical exam is unchanged. LABORATORY DATA: BUN and creatinine unremarkable. Hemoglobin is 10.9. IMPRESSION: 1. Status post Non-ST elevation myocardial infarction. 2. Coagulopathy is back to normal. 3. Coronary artery disease. 4. Dilated cardiomyopathy. 5. History of cardiovascular accident. Given these findings, we are in discussion with the patient about potential catheterization which is scheduled for Saturday. If the patient agrees, will need to discontinue her Eliquis today. Esdras Ortiz MD
--- NOTE | 2018-07-16 13:36 | CON ---
DATE OF CONSULTATION: 07/16/2018 HISTORY OF PRESENT ILLNESS: In short, the patient is a 62-year-old female with a history of CVA, right hemiparesis, hypertension, dyslipidemia, and chronic pain. The patient was admitted to the medical side for evaluation of leukocytosis, right-sided pain, possible urinary tract infection. Psych consult was called for evaluation of possible depression. The patient lost her mother last year, and the patient still is in grief. The patient was seen and examined today. The patient presented to be alert. There is some psychomotor retardation. The patient presented to be alert, disengaged, slow, and monotonic voice. The patient reported that she lost her mother last year and still it is very hard for her to adjust. The patient reported that she has one brother and one daughter, but she has nobody who could help her. The patient reported that at times she feels depressed, but denied any thoughts of harming herself or others. The patient reported that she can still talk to the therapist, Dr. Fierro, over the phone. The patient denied history of being admitted to the Psychiatric Inpatient Unit. The patient denied history of suicidal attempts. PHYSICAL EXAMINATION: VITAL SIGNS: Reviewed. Temperature 97.6, pulse 79, blood pressure 134/87, respirations 20, and oxygen saturation is 96. MEDICATIONS: Reviewed. The patient is on Tylenol, Coreg, aspirin, digoxin, Cardizem, Colace, Lasix, Lopressor, oxycodone, Percocet, Dilantin, and Ambien will be on hold. This designer/writer suggested to give trazodone at the nighttime. It would help the patient with her insomnia and depressed mood. Risks, benefits, and alternatives discussed with the patient. The patient agreed and Ambien will be on hold. MENTAL STATUS EXAMINATION: The patient presented to be alert. Psychomotor retardation. Mood described as depressed. Affect was constricted. Thought process concrete. Thought content, the patient denied visual, auditory, or tactile hallucinations. Denied paranoid ideation. The patient denied thoughts of harming herself or others, denied intent or plan. Insight and judgment seemed to be limited, but improving. Impulses are well controlled. IMPRESSION: Rule out pathological grief, rule out major depressive disorder, rule out mood disorder due to general medical condition. PLAN: Trazodone was started, Ambien was on hold. This designer/writer will follow up and advise accordingly. Thank you so much for letting me participate in care of your patient. Kimberly Hobson MD
--- NOTE | 2018-07-16 15:05 | CP.PCM.PCO ---
Physician Communication Note - Physician Communication Note Physician Communication Note: venous duplex pending, possible cardiac cath Fri.
--- NOTE | 2018-07-16 17:16 | US ---
PROCEDURE: Left lower extremity venous US HISTORY: Leg pain and swelling. Evaluate for DVT. PHYSICIAN(S): Esdras Montejo MD. TECHNIQUE: Duplex sonography and color-flow Doppler with graded compression were used to evaluate the deep venous system of the left lower extremity. FINDINGS: There is acute on chronic DVT noted in the left femoral and popliteal veins. The left tibial veins are not adequately seen. The left common femoral vein is patent and compressible IMPRESSION: 1. Acute on chronic DVT in the left femoral and popliteal veins
[2018-07-16] MEDS: Digoxin 250 mcg (0.25 mg) Tab PO SCH (17:17)
--- NOTE | 2018-07-17 00:21 | PN ---
DATE: 07/16/2018 SUBJECTIVE: The patient was seen earlier this morning in room 275, bed 1. She has had no fevers, no chills. No nausea. OBJECTIVE: VITAL SIGNS: Temperature is 98, blood pressure is 120/80, respiratory rate of 18. HEENT: Unremarkable. NECK: Supple. LUNGS: Have decreased breath sounds. HEART: Normal S1, S2. ABDOMEN: Soft. LABORATORY EXAMINATION: Reveals a white count of 5.6. Chemistries are noted. Urinalysis is noted. Serology is noted. Microbiology reveals Enterococcus in the urine. Blood cultures are negative. Review of orders reveals the patient to be off antibiotics communication report is noted. The patient has had possible cardiac cath on Saturday. The patient had Dopplers of lower extremities, acute on chronic DVT, and left femoral popliteal pain. 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 Currently, patient has [id number] myocardial infarction, asymptomatic bacteriuria, possible cardiac cath on Saturday, currently off of antibiotics. The patient is at risk for developing nosocomial infections. Santosh Lopez MD
[2018-07-17] MEDS: oxyCODONE 30 mg Immediate Release Tab PO SCH ×3 (05:17→21:08)
[2018-07-17 07:15] LABS: HEMOGLOBIN 11.7 g/dL (12.0-16.0); MEAN CELL VOLUME 87.8 fl (80.0-105.0); MEAN CORPUSCULAR HEMOGLOBIN 27.4 pg (25.0-35.0); MEAN CORPUSCULAR HGB CONC 31.2 g/dl (31.0-37.0); MEAN PLATELET VOLUME 9.1 fl (7.0-11.0); RBC 4.27 10^6/uL (3.5-6.1); RED CELL DISTRIBUTION WIDTH 17.1 % (11.5-14.5); WHITE BLOOD COUNT 6.2 10^3/uL (4.5-11.0)
[2018-07-17 07:33] LABS: ALB/GLOB RATIO 0.9 (1.1-1.8); ALT/SGPT 36 U/L (7-56); AST/SGOT 43 U/L (14-36); BLOOD UREA NITROGEN 22 mg/dL (7-21); CALCIUM 8.3 mg/dL (8.4-10.5); GFR NON-AFRICAN AMERICAN > 60
[2018-07-17] MEDS: diltiaZEM 120 mg/24 Hours CD Cap PO SCH (10:35)
--- NOTE | 2018-07-17 12:33 | PN ---
DATE: 07/17/2018 SUBJECTIVE: She is resting comfortably in bed. I believe the plan is to do a cardiac catheterization tomorrow and then she is to go to TCU tomorrow afternoon if accepted. MEDICATIONS: She is on aspirin, Cardizem, Colace, Desyrel, Dilantin, DuoNeb, Eliquis, Lanoxin, Lasix, Lopressor, oxycodone, Percocet, Tylenol. PHYSICAL EXAMINATION: GENERAL: She is pleasant in bed. She is eating. VITAL SIGNS: Temperature 97.5, 73 pulse, 103/66 blood pressure, 18 respiratory rate, 100% O2 sat on nasal cannula. HEENT: Head is atraumatic, normocephalic. HEART: Regular rate. LUNGS: Decreased breath sounds. ABDOMEN: Soft, obese, nontender. EXTREMITIES: +2/4 pitting edema with right-sided weakness secondary to an old stroke. She is on aspirin, Cardizem, Colace, Desyrel, Dilantin, DuoNeb, Eliquis, Lanoxin, Lasix, metoprolol, oxycodone, Percocet, and Tylenol. LABORATORY DATA: White count 6.2, hemoglobin 11.7, hematocrit 37.5, platelets are 320. INR is 1.84. Sodium 140, potassium 3.7, BUN is 22, creatinine 0.6, GFR is greater than 60, sugar is 84, calcium is 8.3, total bili is 0.4. AST is 43, ALT is 36, alk phos 189. Total protein 6.4. ASSESSMENT AND PLAN: She has congestive heart failure, sepsis, urinary tract infection, coagulopathy, non-ST elevation myocardial infarction, left deep venous thrombosis, old cerebrovascular accident. She is being seen by Infectious Disease, Psychiatry, and Cardiology. She is off the antibiotics. [id number] deep venous thrombosis. She is going to be on Eliquis. Also seen by Psychiatry, status post non-ST elevation myocardial infarction. Cardiac catheterization on Saturday. Hopefully to TCU Saturday afternoon. Keaton Rick DO
--- NOTE | 2018-07-17 12:53 | PN ---
DATE: 07/17/2018 CARDIOLOGY FOLLOWUP SUBJECTIVE: The patient is chest pain free. PHYSICAL EXAMINATION: VITAL SIGNS: Stable. NECK: Negative JVD. LUNGS: Without rales. HEART: S1, S2. EXTREMITIES: Without edema. LABORATORY DATA: Hemoglobin is 11.7. Chemistries, BUN and creatinine are normal. IMPRESSION: 1. Status post non-ST elevation myocardial infarction. 2. Coagulopathy, which is now in order. 3. Dilated cardiomyopathy. 4. Coronary artery disease. 5. History of cerebrovascular accident. After extensive discussion with the patient and family through the nurse practitioner, the patient and family are agreeable to cardiac catheterization, was scheduled for the morning. Esdras Ortiz MD
--- NOTE | 2018-07-17 13:35 | PN ---
DATE: 07/17/2018 SUBJECTIVE: The patient seen in room 275 earlier today. No fevers, no chills. No nausea. PHYSICAL EXAMINATION: VITAL SIGNS: Temperature is 98, blood pressure is 109/60, respiratory rate of 18. HEENT: Unremarkable. NECK: Supple. LUNGS: Decreased breath sounds. HEART: Normal S1, S2. ABDOMEN: Soft, nontender. LABORATORY DATA: Examination reveals white count is down to 6.2. Chemistries are noted. Troponin of 1.19 is noted. HIV is negative. Microbiology, Enterococcus in the urine. No urinary symptoms. ASSESSMENT AND PLAN: A 62-year-old female who has obesity, body mass index of 31, had recent hospitalization, coronary artery disease, deep venous thrombosis, left cerebrovascular accident who has right-sided hemiparesis, admitted with chest pain with leukocytosis and tachycardia. 1. Systemic inflammatory response syndrome secondary to non-ST elevation myocardial infarction. 2. Asymptomatic bacteruria with Enterococcus, currently off antibiotics. 3. . Review of orders reveals the patient is off antibiotics. The patient is scheduled for a cardiac catheterization tomorrow. She is at risk for developing nosocomial infections. Santosh Lopez MD
[2018-07-17] MEDS: Digoxin 250 mcg (0.25 mg) Tab PO SCH (16:01)
--- NOTE | 2018-07-17 18:09 | PN ---
DATE: 07/17/2018 SUBJECTIVE: Patient is a 62-year-old female with multiple medical issues including CVA, right hemiparesis, hypertension, dyslipidemia, chronic pain. The patient was admitted on the medical side for evaluation of leukocytosis, right-sided pain, possible urinary tract infection. Psych consult was called for evaluation of depressive symptoms. The patient was seen initially yesterday. Please see initial evaluation for more detailed information. 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 The patient presented to be alert. There is some improvement with the patient's presentation, the patient's affect was little bit brighter. The patient walks very slow and monotonic, flat affect. The patient reported that she still did not sleep that well. The patient denied any side effects from the trazodone. VITAL SIGNS: Reviewed. MEDICATIONS: Reviewed. The patient is on Tylenol, DuoNeb, Eliquis, aspirin, Plavix, Cardizem, Colace, Lasix, Lopressor, oxycodone, Percocet, Dilantin, trazodone 50 mg at the nighttime. LABORATORY DATA: Reviewed, most recent was from today. MENTAL STAT US EXAMINATION: The patient presented to be alert, pleasant, flat affect, speech was monotonic low volume. Mood described as depressed. Affect was constricted. Thought process concrete. Thought content, the patient denied visual, auditory, tactile hallucinations. Denied paranoid ideation. The patient does not appear to be psychotic. Insight and judgment seem to be improving. Impulses are well controlled. IMPRESSION: Rule out mood disorder due to change in medical condition, rule out major depressive disorder, rule out adjustment disorder and pathological grief. The patient lost her mother about the year ago, still grieving over the fact. PLAN: Continue current management. Continue current medications, trazodone 50 mg at the nighttime, physical therapy evaluation recommended. We will follow up and advise accordingly. Thank you very much for letting me participate in care of your patient. Kimberly Hobson MD [facility]
[2018-07-18] MEDS: Oxycodone/Acetaminophen 10/325 mg Tab PO PRN ×2 (01:56→16:04)
[2018-07-18] MEDS: oxyCODONE 30 mg Immediate Release Tab PO SCH ×3 (06:03→21:55)
[2018-07-18 06:45] LABS: HEMOGLOBIN 11.4 g/dL (12.0-16.0); MEAN CELL VOLUME 87.8 fl (80.0-105.0); MEAN CORPUSCULAR HEMOGLOBIN 27.3 pg (25.0-35.0); MEAN CORPUSCULAR HGB CONC 31.1 g/dl (31.0-37.0); MEAN PLATELET VOLUME 9.2 fl (7.0-11.0); RBC 4.17 10^6/uL (3.5-6.1); RED CELL DISTRIBUTION WIDTH 16.9 % (11.5-14.5); WHITE BLOOD COUNT 5.4 10^3/uL (4.5-11.0)
[2018-07-18 07:10] LABS: ALB/GLOB RATIO 0.9 (1.1-1.8); ALBUMIN 2.9 g/dL (3.0-4.8); ALT/SGPT 37 U/L (7-56); AST/SGOT 45 U/L (14-36); BLOOD UREA NITROGEN 24 mg/dL (7-21); CALCIUM 8.3 mg/dL (8.4-10.5); GFR NON-AFRICAN AMERICAN > 60
--- NOTE | 2018-07-18 09:07 | PN ---
DATE: 07/18/2018 SUBJECTIVE: The patient is seen earlier today in no acute distress. PHYSICAL EXAMINATION: VITAL SIGNS: Temperature is 98, blood pressure is 118/70, respiratory rate of 18. HEENT: Unremarkable. NECK: Supple. LUNGS: Have decreased breath sounds. HEART: Normal S1, S2. ABDOMEN: Soft. LABORATORY EXAMINATION: Reveals the patient's white count of 6.2, hemoglobin of 11, platelets of 322, BUN of 22, creatinine of 0.6 and troponin is 1.19. Review of orders reveals the patient to be off of antibiotics. ASSESSMENT AND PLAN: He is a 62-year-old female who was seen earlier this morning in 275, bed 1. She is awake and alert. She has obesity with a BMI of 31. Recent hospitalization, history of coronary artery disease, deep venous thrombosis, left cerebrovascular accident with right-sided hemiparesis who was admitted with: 1. Systemic inflammatory response syndrome secondary to non-ST elevation myocardial infarction because of the leukocytosis Infectious Disease consultation is requested. 2. Asymptomatic bacteriuria with Enterococcus, no symptoms, therefore requiring no treatment and at this time off of antibiotics. The patient is scheduled for cardiac evaluation this morning. Santosh Lopez MD
[2018-07-18] MEDS ORDERED: Lidocaine PF 2% (5 ml) Inj (For Cardiac Arrhy) ONE (09:38)
[2018-07-18] MEDS ORDERED: Iodixanol 320 MG/ML 200 ML BOTTLE IV ONE (09:38)
[2018-07-18] MEDS ORDERED: Midazolam 2 MG/2 ML VIAL ONE ×2 (09:40→10:01)
[2018-07-18] MEDS ORDERED: Eptifibatide 20 mg/10mL Inj IVP ONE (10:19)
--- NOTE | 2018-07-18 10:28 | CP.PCM.PCO ---
Addendum Addendum: 07/18/18 10:20 pt was at the cardiac cath at the morning as per RN report pt slept well no acute psychiatric issues will be f/u by 07/19/18
--- NOTE | 2018-07-18 10:31 | PN ---
DATE: 07/18/2018 SUBJECTIVE: I saw her just before she is cardiac cath with Dr. Esdras Ortiz. She is going to go for cardiac cath today and the plan is for the TCU. I believe Dr. Ortiz would keep her overnight tonight and then tomorrow be able to go to TCU on Saturday. PHYSICAL EXAMINATION: GENERAL: She is comfortable in bed. VITAL SIGNS: 97.9 temperature, 67 pulse, 125/77 blood pressure, 18 respiratory rate, 97% O2 sat on room air. HEENT: Head is atraumatic, normocephalic. HEART: Regular rate. LUNGS: Decreased breath sounds. ABDOMEN: Soft. EXTREMITIES: Right paralysis from an old stroke. LABORATORY DATA: She has a 5.4 white count, 11.4 hemoglobin, 36.6 hematocrit with 327 platelets. She has a 140 sodium, potassium 3.9, BUN is 24, creatinine 0.7, GFR is greater than 60, sugar is 86, calcium is 8.3, total bili is 0.3. AST is 45, ALT 37, alk phos 21, total protein 6.3. She had UTI, negative for HIV, Enterococcus faecalis in the urine. MEDICATIONS: She is on aspirin, Cardizem, Colace, Desyrel, Dilantin, DuoNebs, Eliquis, Lanoxin, Lasix, Lopressor, oxycodone, Percocet, Plavix, Tylenol. She is in good spirits. ASSESSMENT AND PLAN: She is being seen by Infectious Disease, Cardiology, and Psychiatry. She had an non-ST segment elevation myocardial infarction, coagulopathy, dilated cardiomyopathy, coronary artery disease, history of cerebrovascular accident. I am hoping that we could discharge her tomorrow morning to TCU. Keaton Rick DO MTDD
[2018-07-18] MEDS ORDERED: Iohexol 350mgl/ml 50 ML ONE (10:35)
--- NOTE | 2018-07-18 10:58 | CP.PCM.PCO ---
Physician Communication Note - Physician Communication Note Physician Communication Note: S/P PCI stenting x 2, staging required.
[2018-07-18] MEDS ORDERED: Sodium Chloride 0.9% 1,000 ML IV SCH (11:15)
[2018-07-18] MEDS: diltiaZEM 120 mg/24 Hours CD Cap PO SCH (11:31)
--- NOTE | 2018-07-18 13:21 | CARDCATH ---
PROCEDURE DATE: 07/18/2018 HISTORY: The patient is a 62-year-old woman who presented to the hospital with coagulopathy secondary to Coumadin. She was being treated with Coumadin for her chronic DVT. She was found to have markedly elevated troponins consistent with a Non-STEMI. Because of this, once the patient was stabilized, she was brought to the lab technologist for cardiac catheterization. PROCEDURE: Left heart catheterization with coronary arteriography and left ventriculogram followed by PTCA and stent of a diffusely diseased LAD. The right femoral artery was cannulated with a 6-[place] sheath which was then exchanged for a 7-[place] sheath with the procedure. There were no complications. I performed moderate sedation which included the presence of an independent trained observer that assisted in monitoring the patient's level of consciousness and physiologic status. After administration of Versed and fentanyl, my intra service time was 60 minutes. The findings on catheterization revealed a left ventricle that was globally dilated and diffusely hypokinetic with an EF of 25%. Her coronary anatomy revealed codominant circulation. The RCA was diffusely diseased with a 90% stenoses in the mid portion. The left main artery revealed atherosclerosis without critical lesions. The LAD was subtotally occluded in its proximal portion at the septal nurse transplant with a 99% stenoses. This was followed by multiple 90% lesions in the mid and distal LAD. The diagonal vessels were diffusely diseased. The circumflex artery was a large vessel and revealed a subtotally occluded large obtuse marginal branch as well as an eccentric 80% stenosis in its midportion. The patient was started on intravenous Angiomax on the fluoroscopic guide, the guiding catheter was placed in the ostium of the left main artery and 0.014 ATW wire was used to cross the multiple lesions in the LAD. A second ATW wire was used to cross the lesion in the septal nurse transplant. A 2.0 balloon was utilized to dilate the proximal LAD as well as the mid and distal LAD. A 2.0 balloon was utilized to dilate the ostium of the septal nurse transplant. This was followed by implantation of a long drug-eluting stent in the mid and distal LAD as well as a second stent in the proximal LAD at the takeoff of the septal nurse transplant. Repeat coronary arteriography revealed an excellent result with no residual stenosis and JUAN III flow down the LAD as well as a septal nurse transplant. AngioSeal was used to close the femoral artery site. The patient tolerated the procedure well. In summary, the procedure was successful PTCA and stent of an LAD which was subtotally occluded as well as revealing multiple 80% lesions in the mid and distal LAD. PTCA was done on the ostium of the septal nurse transplant as well. The stents were drug-eluting stents. Cardiac catheterization reveals a global hypokinetic LV with an EF of 25%. Catheterization also revealed severe triple-vessel disease. PRU testing revealed a therapeutic reaction to Plavix. Given these findings, the patient will remain on aspirin and Plavix. In the morning, we will stop the aspirin and add Eliquis to her regimen for her DVTs. We will bring her back in 1 week for PTCA and stent of the circumflex artery as well as the RCA. Esdras Ortiz MD
[2018-07-18] MEDS: Digoxin 250 mcg (0.25 mg) Tab PO SCH (14:49)
[2018-07-18 14:50] VITALS: PULSE 69
--- NOTE | 2018-07-18 18:19 | CARD ---
APPROVED REPORT Date of service: 07/18/2018 EKG Measurement Heart [id number] <Conclusion> Sinus rhythm with occasional premature ventricular complexes ST & T wave abnormality, consider inferior ischemia Abnormal ECG
[2018-07-19 04:09] VITALS: O2SAT 97
[2018-07-19] MEDS: oxyCODONE 30 mg Immediate Release Tab PO SCH (06:04)
[2018-07-19] MEDS: diltiaZEM 120 mg/24 Hours CD Cap PO SCH (10:18)
--- NOTE | 2018-07-19 10:25 | CP.PCM.PCO ---
Addendum Addendum: Patient requests that I f/u with her in the AM tomorrow as she is too tired to participate in an interview this morning. 07/19/18 10:25
[2018-07-19 11:24] VITALS: RESP 18
--- NOTE | 2018-07-19 11:51 | CARD ---
APPROVED REPORT Date of service: 07/19/2018 EKG Measurement Heart [id number] <Conclusion> Sinus rhythm with sinus arrhythmia with 1st degree AV block ST & T wave abnormality, consider inferior ischemia Abnormal ECG
[2018-07-19 12:24] VITALS: BP 115/71; PULSE 60; TEMP 97.9
--- NOTE | 2018-07-19 13:38 | PN ---
DATE: 07/19/2018 SUBJECTIVE: The patient is in bed in no acute distress, nontoxic. PHYSICAL EXAMINATION: VITAL SIGNS: On exam, temperature is 98, blood pressure is 118/72, respiratory 20, heart rate of 76. HEENT: Unremarkable. NECK: Supple. HEART: Normal S1, S2. LUNGS: Decreased breath sounds. ABDOMEN: Soft. LABORATORY DATA: Reveals a white count of 5.4, hemoglobin of 11, BUN of 24, creatinine 0.7. Urinalysis is noted. HIV is negative. Microbiology is noted with Enterococcus. Review of orders reveals the patient is off antibiotics. ASSESSMENT AND PLAN: This is a 62-year-old female was seen earlier today, awake and alert. She has a obesity with BMI of 32, recent hospitalization, history of coronary artery disease, deep venous thrombosis left, cerebral vascular accident with right-sided hemiparesis and admitted with: 1. Systemic inflammatory response syndrome secondary to non-ST elevation myocardial infarction and because of leukocytosis Infectious Disease was consulted. 2. Asymptomatic bacteriuria with Enterococcus. No symptoms, therefore requiring no treatment. 3. Status post cardiac catheterization yesterday, postprocedure day #1 today which revealed and was done by Dr. Esdras Ortiz which revealed the patient has had successful percutaneous transluminal coronary angioplasty and stent of the left anterior descending which shows subtotally occluded as well as revealing multiple 80% lesions in the mid and distal left anterior descending. Percutaneous transluminal coronary angioplasty was done and on the ostium of the septal manager architectural as well, stents were drug eluting stents and the patient's ejection fraction of 25% is noted by Dr. Esdras Ortiz. Currently off antibiotics, afebrile. The patient is at risk for developing nosocomial infections. Santosh Lopez MD
--- NOTE | 2018-07-19 16:02 | PN ---
DATE: 07/19/2018 REASON FOR CONSULTATION: Coronary artery disease. REASON FOR DICTATION: Covering Dr. Esdras Ortiz. SUBJECTIVE: The patient denies any chest pain, shortness of breath, any palpitation. PHYSICAL EXAMINATION: GENERAL: The patient is not in any apparent distress. VITAL SIGNS: Temperature afebrile, heart rate 80, and blood pressure 126/59. HEENT: PERRLA. Extraocular muscles intact. NECK: Supple. No carotid bruits. No thyromegaly. CHEST: Clear to auscultation. HEART: S1 and S2, regular. ABDOMEN: Soft. EXTREMITIES: Clubbing and cyanosis, negative. LABORATORY DATA: Blood workup: WBC 5.6, hemoglobin 11.4, hematocrit 36.6, and platelet count 327. Chemistry shows sodium 140, potassium 3.7, chloride 100, carbon dioxide 34, anion gap of 10, BUN 24, and creatinine 0.7. IMPRESSION: A 62-year-old female with past medical history significant for hypertension, cerebrovascular accident, admitted with non-ST segment myocardial infarction, underwent percutaneous transluminal coronary angioplasty of left anterior descending artery and scheduled for percutaneous transluminal coronary angioplasty of right coronary artery and circumflex in one week. Postoperatively, the patient is stable. Denies any chest pain, shortness of breath, any palpitation. RECOMMENDATION: Continue Cardizem. Continue aspirin. Continue Eliquis. Continue digoxin. Continue atorvastatin. Continue metoprolol. Continue Plavix. Possible transfer to transitional care unit and reschedule for PTCA of LAD and circumflex in 1 week. Discussed with the patient. We will transfer care on Saturday to Dr. Ortiz. History of severe dilated cardiomyopathy, the patient was on Coumadin for dilated cardiomyopathy. Resume Eliquis. Ricardo West MD
--- NOTE | 2018-07-19 19:00 | DS ---
HOSPITAL COURSE: Karis Pugh was in the hospital with a CHF, sepsis, UTI, CAD and STEMI, a CHF left PVD picture. She also has an old CVA with right-sided weakness. She just had a cardiac cath yesterday with Dr. Esdras Ortiz who stented her. She has been put in to TCU today for physical therapy. I believe the plan is to come back next for another stent. She will be there on aspirin, diltiazem, Colace, Desyrel, Dilantin, DuoNebs, Ecotrin, Eliquis, Lanoxin, Lipitor, Lopressor, oxycodone, her pain medications and Tylenol. REVIEW OF SYSTEMS: No chest pain. No shortness of breath. No abdominal pain. PHYSICAL EXAMINATION VITAL SIGNS: She has a 98 temperature, 74 pulse, 118/72 blood pressure, 20 respiratory rate and 97% O2 sat on room air. GENERAL: She is smiling. She is eating. She is feeling well. HEAD: Atraumatic, normocephalic. HEART: Regular rate. LUNGS: With decreased breath sounds but clear. ABDOMEN: Soft, obese, nontender. EXTREMITIES: She remains with +2/4 pitting edema, it is her baseline, the whole right side is flaccid from a stroke. LABORATORY DATA: She has a 5.4 white count, 11.4 hemoglobin, 36.6 hematocrit with 327 platelets. A 140 sodium, potassium 3.9, BUN is 24, creatinine 0.7, GFR is greater than 60, sugar is 86, hemoglobin A1c is good at 5.8, calcium is 8.3, total bili is 0.3. AST is 45, ALT is 37, alk phos 181. The last troponin was 1.19, it came down, a 6.3 as of total protein. ASSESSMENT AND PLAN: She is being discharged to the Transitional Care Unit, we will follow over there. Hopefully she will continue to do well and get some physical therapy in her and next week another cardiac catheterization. Keaton Rick DO
== END 2018-07-19 12:42 | DRG 853 ==
LOC: ED 16:42 → ERH 18:19 → 2RSO 20:50
PROVIDERS: ADMIT Family Medicine; ATTEND Family Medicine
PROC: 027034Z Dilation of Coronary Artery, One Artery with Drug-eluting Intraluminal Device, Percutaneous Approach (ICD-10-PCS; principal; 2018-07-18)
PROC: 4A023N7 Measurement of Cardiac Sampling and Pressure, Left Heart, Percutaneous Approach (ICD-10-PCS; 2018-07-18)
PROC: B211YZZ Fluoroscopy of Multiple Coronary Arteries using Other Contrast (ICD-10-PCS; 2018-07-18)
PROC: B215YZZ Fluoroscopy of Left Heart using Other Contrast (ICD-10-PCS; 2018-07-18)
DX: A41.9 Sepsis, unspecified organism (principal); I21.4 Non-ST elevation (NSTEMI) myocardial infarction; I50.23 Acute on chronic systolic (congestive) heart failure; I69.351 Hemiplegia and hemiparesis following cerebral infarction affecting right dominant side; N39.0 Urinary tract infection, site not specified; I42.0 Dilated cardiomyopathy; I82.412 Acute embolism and thrombosis of left femoral vein; I82.432 Acute embolism and thrombosis of left popliteal vein; I82.512 Chronic embolism and thrombosis of left femoral vein; I82.532 Chronic embolism and thrombosis of left popliteal vein; I11.0 Hypertensive heart disease with heart failure; I25.10 Atherosclerotic heart disease of native coronary artery without angina pectoris; E78.00 Pure hypercholesterolemia, unspecified; R79.1 Abnormal coagulation profile; T45.515A Adverse effect of anticoagulants, initial encounter; G89.4 Chronic pain syndrome; K59.00 Constipation, unspecified; I48.91 Unspecified atrial fibrillation; B95.2 Enterococcus as the cause of diseases classified elsewhere; E78.5 Hyperlipidemia, unspecified; D64.9 Anemia, unspecified; E66.9 Obesity, unspecified; Z68.31 Body mass index [BMI] 31.0-31.9, adult; R29.6 Repeated falls; Z79.01 Long term (current) use of anticoagulants; Z88.0 Allergy status to penicillin

== ENCOUNTER 2018-07-19 12:41 | Inpatient (IN) | payer OTHER, BC ==
[2018-07-19 12:59] VITALS: BMI 26.9
[2018-07-19] MEDS ORDERED: Albuterol-Ipratrop 3 mg / 0.5 (3 ml) UD IH PRN (13:00)
[2018-07-19] MEDS ORDERED: Pneumococcal 23-Valent Vaccine IM ONE (14:10)
[2018-07-19] MEDS: Digoxin 250 mcg (0.25 mg) Tab PO SCH (14:58)
[2018-07-19] MEDS: oxyCODONE 30 mg Immediate Release Tab PO SCH ×2 (14:58→21:22)
[2018-07-19] MEDS: Oxycodone/Acetaminophen 10/325 mg Tab PO PRN (23:27)
[2018-07-20] MEDS: oxyCODONE 30 mg Immediate Release Tab PO SCH ×3 (05:45→21:13)
[2018-07-20 08:03] LABS: HEMOGLOBIN 12.1 g/dL (12.0-16.0); MEAN CELL VOLUME 87.2 fl (80.0-105.0); MEAN CORPUSCULAR HEMOGLOBIN 27.6 pg (25.0-35.0); MEAN CORPUSCULAR HGB CONC 31.6 g/dl (31.0-37.0); RBC 4.39 10^6/uL (3.5-6.1); RED CELL DISTRIBUTION WIDTH 16.5 % (11.5-14.5); WHITE BLOOD COUNT 5.1 10^3/uL (4.5-11.0)
[2018-07-20 08:32] LABS: BLOOD UREA NITROGEN 24 mg/dL (7-21); CALCIUM 8.7 mg/dL (8.4-10.5); GFR NON-AFRICAN AMERICAN > 60
[2018-07-20] MEDS: diltiaZEM 120 mg/24 Hours CD Cap PO SCH (10:08)
[2018-07-20] MEDS ORDERED: Potassium Chloride 20 mEq ER Tab PO ONE (10:21)
[2018-07-20] MEDS: Oxycodone/Acetaminophen 10/325 mg Tab PO PRN ×2 (12:04→18:12)
--- NOTE | 2018-07-20 14:34 | CON ---
DATE OF CONSULTATION: 07/20/2018 The patient is seen earlier today in Room 322. CHIEF COMPLAINT: Weakness times several days. HISTORY OF PRESENT ILLNESS: This is a 62-year-old female with past medical history of morbid obesity, hypertension, coronary artery disease and DVT. The patient has a left-sided CVA with a right hemiparesis. The patient also has atrial fibrillation, hyperlipidemia, and arthritis, who is admitted to the acute care with right-sided pain and had workup done, which revealed it to be cardiac in origin, and oral antibiotics were discontinued. The patient did have leukocytosis and an infectious disease consultation requested. The patient also had Enterococcus in the urine; however, the patient had been asymptomatic with asymptomatic bacteriuria. PAST MEDICAL HISTORY: Significant for a history of morbid obesity, now obesity with a BMI of 32, atrial fibrillation, hyperlipidemia, arthritis, left CVA with right hemiparesis, coronary artery disease, DVT, and hypertension. PAST SURGICAL HISTORY: Significant for hysterectomy, cholecystectomy, IVC filter. ALLERGIES: THE PATIENT IS ALLERGIC TO PENICILLIN. REVIEW OF SYSTEMS: A 12-point review of systems performed. PHYSICAL EXAMINATION: VITAL SIGNS: The patient's temperature is 98, blood pressure is 112/70, respiratory rate of 18, heart rate of 80. HEENT: Unremarkable. NECK: Supple. LUNGS: Decreased breath sounds. HEART: Normal S1, S2. ABDOMEN: Soft. LABORATORY EXAMINATION: White count is normal. Chemistries are reviewed. Cultures reveal Enterococcus in the urine. Urinalysis is noted. The patient is HIV negative. ASSESSMENT/PLAN: This is a 62-year-old female who is now on the transitional care and was admitted with 1. Systemic inflammatory response syndrome secondary to non-ST elevation myocardial infarction and status post cardiac cath by Dr. Esdras Ortiz with angioplasty and PTCA with stent in the left anterior descending and also 2 drug-eluting stents were placed and the patient does have an ejection fraction of 25% with multiple lesions at mid and distal left anterior descending. 2. Asymptomatic bacteriuria with Enterococcus. Currently off of antibiotics. Would recommend to continue the patient off of antibiotics. However, the patient is at risk of developing nosocomial infections. Review of orders confirms the patient to be off of antibiotics and we will follow closely with you. Santosh Lopez MD [facility] # [id number]
[2018-07-20] MEDS: Digoxin 250 mcg (0.25 mg) Tab PO SCH (14:36)
--- NOTE | 2018-07-20 17:58 | CON ---
DATE: 07/20/2018 HISTORY OF PRESENT ILLNESS: The patient is a 62-year-old female who is being seen by Psychiatry in the Transitional Care Unit after consult was called for evaluation of depressive symptoms. I reviewed Dr. Hobson's notes, which indicated that the patient was started on trazodone 50 mg at nighttime to help with sleep and depression. Her note indicated that there was some improvement in the patient's presentation during her followup visit. I continued to see some improvement in her overall presentation when I met with her today. The patient is alert and oriented x3. Focus is fair during my interview. She indicates that she is feeling better. She like her surrounding transitional care unit is better than the medical floor. There have been no behavioral issues and she is she is coherent, raises simple questioning. She denies having any issues with trazodone and reports she is tolerating well, would like to continue taking medication. The patient appears to have slept well last night according to the patient's own account and staff notes. As usual, she denies having any suicidal thoughts or homicidal thoughts. She is definitely not hallucinating, she is adamant that she is not hallucinating. Insight and judgment is considered to be fair and she remains future oriented and motivated for improvement. Labs and vitals were reviewed. ASSESSMENT: Rule out mood disorder due to general medical condition, rule out major depressive disorder, rule out adjustment disorder with depression, anxiety as well as pathological grief over the of her mother. RECOMMENDATIONS: We will continue with trazodone 50 mg at bedtime as there is no acute indication of change in medication at this time and she appears fairly stable without any concerns regarding harming herself or others or being a danger to herself or others. Psychiatry signed off. Please re-consult geovanna Lubna Palafox MD
--- NOTE | 2018-07-20 21:01 | CON ---
DATE: 07/20/2018 CARDIOLOGY CONSULT Covering for Dr. Esdras Ortiz. REASON FOR THE CONSULTATION: Coronary artery disease, status post PTCA of RCA PTCA of LAD circumflex in one week. BRIEF CLINICAL HISTORY: A 62-year-old female with past medical history significant for hypertension, cerebrovascular accident, admitted with non-ST segment myocardial infarction underwent percutaneous transluminal angioplasty of left anterior descending artery, is scheduled for percutaneous angioplasty of right coronary artery circumflex. Postoperative the patient is stable, now the patient is transferred to transitional care unit for continue of care. PAST MEDICAL HISTORY: Significant for cerebrovascular accident, history of recently non-ST segment myocardial infarction, status post PTCA of left anterior descending artery and scheduled for PTCA of right coronary artery circumflex in one week, history of severe dilated cardiomyopathy and was sent home on Coumadin and history of recent echo. RECENT CARDIAC WORKUP: The patient's echo in the past as showed severe dilated cardiomyopathy and recent cardiac catheterization on that revealed ejection fraction 25% codominant system of coronaries, RCA was found to be 90% stenosed in mid portion, left anterior descending artery 99% stenosis noted, after the first septal j2ee developer, circumflex has 80% stenosis. The patient subsequently underwent PTCA of LAD and scheduled for staged PTCA of RCA and circumflex in 1 week, now the patient is on transitional care for continued care. The patient denies any chest pain, shortness of breath or any palpitation. PHYSICAL EXAMINATION: GENERAL: Height of the patient 5 feet 11 inches. Weight of the patient 193 pounds. Body mass index 26.9 kg/m2. VITAL SIGNS: Temperature afebrile. Heart rate 78 and blood pressure 129/75. HEENT: PERRLA. Extraocular muscles intact. NECK: Supple. No carotid bruits. No thyromegaly. CHEST: Clear to auscultation. HEART: S1 and S2, regular. ABDOMEN: Soft. EXTREMITIES: Clubbing and cyanosis negative. LABORATORY DATA: Blood workup as follows, WBC 5.9, hemoglobin 12, hematocrit 38.3 and platelet count 299. Chemistry shows sodium 135, potassium 3.6, chloride 97, carbon dioxide 34, anion gap of 9, BUN 21 and creatinine 0.7. IMPRESSION: A 62-year-old female with past medical history significant for non-ST segment myocardial infarction, status post percutaneous transluminal coronary angioplasty of left anterior descending 2 days ago and for a staged percutaneous transluminal coronary angioplasty of right coronary artery and circumflex in one week, history of dilated cardiomyopathy on Coumadin, history of cerebrovascular accident. RECOMMENDATION: Continue Eliquis 5 p.o. b.i.d. Continue Cardizem. Continue baby aspirin. Continue atorvastatin. Continue metoprolol. Continue Plavix. Two days prior to PTCA, we will hold Eliquis. We will transfer care tomorrow to Dr. Esdras Ortiz. We will supplement with potassium. Further recommendation depending upon hospital course. We will follow with you. Thank you Dr. Rick for providing us the opportunity in taking care of the patient, Karis Pugh. As mentioned, we will transfer care tomorrow to Dr. Esdras Ortiz. Ricardo West MD
--- NOTE | 2018-07-20 22:42 | HP ---
DATE OF EXAM: 07/20/2018 HISTORY OF PRESENT ILLNESS: She was on the hospital side, now she is on the TCU. She is a nice 62-year-old female, I have been doing house calls on her for many years with a past medical history of a very bad CVA with right-sided weakness presents to the hospital with right-sided pain. She had fallen. She ended up having a cardiac cath with severe coronary disease and stent placement understanding to take her back next for another cardiac cath and possible another stent placement. She understands she is doing better now. We are trying to get some physical therapy before she goes back for the second cath. PAST MEDICAL HISTORY: She has a past medical history of CVA with right-sided weakness. She gets around with a brace and a splint. She has hypertension, high cholesterol, chronic pain, atrial fibrillation on Coumadin but now she is switched over to Eliquis. She has a DVT also. PAST SURGICAL HISTORY: She has old stroke, arthritis, constipation, hysterectomy, cholecystectomy. SOCIAL HISTORY: She is a nonsmoker. No drinking. No drugs. ALLERGIES: PENICILLIN. MEDICATIONS: She is taking right now are Cardizem, Colace, Desyrel, Dilantin, DuoNebs, Ecotrin, Eliquis, Lanoxin, Lasix, Lipitor, Lopressor, oxycodone, Percocet for pain management and Plavix and Tylenol and potassium replacement only as needed. REVIEW OF SYSTEMS: HEENT: No acute vision or hearing changes, but although no sore throat at this time. She does have a word-finding issues and she talks slowly. She perseverates from time to time. NECK: No meningeal signs of the cervical spine. No palpable lymphadenopathy. HEART: Regular rate. LUNGS: Decreased breath sounds bilaterally but clear. No chest pain or palpitations or shortness of breath or cough. ABDOMEN: No abdominal pain, nausea, vomiting, constipation, diarrhea. She does have right-sided weakness from an old CVA. PHYSICAL EXAMINATION: GENERAL: She is well-appearing, smiling, comfortable. Alert and oriented x3. VITAL SIGNS: Her vital signs are 97.9 temperature, 77 pulse, 113/70 blood pressure, 20 respiratory rate, 95% O2 sat. HEENT: Head: Atraumatic, normocephalic. Extraocular muscles are intact. Throat is moist. NECK: Supple. No meningeal signs. HEART: Regular rate. Normal S1, S2. LUNGS: Decreased breath sounds bilaterally but clear to auscultation. No wheezes, no rhonchi, no rales. ABDOMEN: Soft, nontender, positive bowel sounds. Obese. No guarding, no rebound, no CVA tenderness. The right side has got some paralysis from an old stroke. EXTREMITIES: She uses a brace on her foot for the foot drop and a brace on her knee to help her walk around. She has +2 pitting edema which is much better than what is used to be. intact. NEUROLOGIC: Cranial nerves II-XII grossly intact. Speech when she can talk is okay. Alert and oriented x3. SKIN: Warm and dry. No apparent ulcers appreciated. LABORATORY DATA: She had some tests done. She has 136 sodium, potassium 3.6, BUN is 24, creatinine 0.7, GFR is greater than 60, sugar is 86, calcium is 8.7. White count 5.1, hemoglobin 12.1, hematocrit 30.3, platelets of 299. ASSESSMENT AND PLAN: She is going to have consults with Cardiology, Psychiatry, Infectious Disease. I do think she is improving, will do physical therapy then get another cardiac cath. We will hold the Eliquis and I believe Plavix 2 days before her cardiac cath again and she is here for physical therapy, coronary artery disease status post cardiac cath, congestive heart failure, urinary tract infection, coagulopathy and [id number] myocardial infarction, and left deep vein thrombosis. Keaton Rick DO MTDD
[2018-07-21] MEDS: oxyCODONE 30 mg Immediate Release Tab PO SCH ×3 (05:31→21:18)
[2018-07-21 07:52] LABS: HEMOGLOBIN 11.6 g/dL (12.0-16.0); MEAN CELL VOLUME 87.3 fl (80.0-105.0); MEAN CORPUSCULAR HEMOGLOBIN 27.9 pg (25.0-35.0); MEAN PLATELET VOLUME 9.3 fl (7.0-11.0); RBC 4.16 10^6/uL (3.5-6.1); RED CELL DISTRIBUTION WIDTH 16.3 % (11.5-14.5); WHITE BLOOD COUNT 4.9 10^3/uL (4.5-11.0)
[2018-07-21 08:12] LABS: ALB/GLOB RATIO 0.9 (1.1-1.8); ALBUMIN 3.2 g/dL (3.0-4.8); ALT/SGPT 26 U/L (7-56); AST/SGOT 35 U/L (14-36); BLOOD UREA NITROGEN 26 mg/dL (7-21); CALCIUM 8.7 mg/dL (8.4-10.5); GFR NON-AFRICAN AMERICAN > 60
[2018-07-21] MEDS: diltiaZEM 120 mg/24 Hours CD Cap PO SCH (10:09)
[2018-07-21] MEDS ORDERED: Potassium Chloride 20 mEq ER Tab PO ONE (10:32)
--- NOTE | 2018-07-21 12:40 | PN ---
DATE: 07/21/2018 SUBJECTIVE: The patient is in bed, in no acute distress, nontoxic. PHYSICAL EXAMINATION: VITAL SIGNS: Temperature is 98, blood pressure is 130/70, respiratory rate of 16. HEENT: Unremarkable. NECK: Supple. LUNGS: Have decreased breath sounds. HEART: Normal S1, S2. ABDOMEN: Soft. LABORATORY DATA: Laboratory examination reveals a white count of 5.1, hemoglobin of 12, BUN of 24, creatinine 0.7. Microbiology is noted. ASSESSMENT AND PLAN: This is a 62-year-old female with, 1. Systemic inflammatory response syndrome secondary to non-ST elevation myocardial infarction, status post cardiac catheterization by Dr. Esdras Ortiz with angioplasty, percutaneous transluminal coronary angioplasty stent in the left anterior descending and also two drug-eluting stents with low ejection fraction of 25%, multiple lesions in mid and distal left anterior descending. 2. An asymptomatic bacteriuria with Enterococcus. Review of orders reveals the patient is off of antibiotics at this point and the patient is at risk for developing nosocomial infections. Santosh Lopez MD
--- NOTE | 2018-07-21 12:59 | PN ---
DATE: 07/21/2018 REASON FOR THE CONSULTATION AND FOLLOWUP: Coronary artery disease, status post PTCA of RCA scheduled for PTCA of LAD circumflex in one week, deconditioned to the body continuity of care. REASON FOR DICTATION: Covering Dr. Esdras Ortiz. SUBJECTIVE: The patient denies any chest pain, shortness of breath or any palpitation. OBJECTIVE: GENERAL: Not in apparent distress. VITAL SIGNS: Temperature afebrile. Heart rate 82 and blood pressure 135/76. HEENT: PERRLA. Extraocular muscles intact. NECK: Supple. No carotid bruits. No thyromegaly. CHEST: Clear to auscultation. HEART: S1 and S2, regular. ABDOMEN: Soft. EXTREMITIES: Clubbing and cyanosis, negative. LABORATORY DATA: Blood workup as follows, WBC of 4.9, hemoglobin 11.6, hematocrit 36.3 and platelet count 299. Chemistry shows sodium 130, potassium 3.7, chloride 39, carbon dioxide 32, anion gap 11, BUN 26 and creatinine 0.7. IMPRESSION: A 62-year-old female with past medical history significant for cerebrovascular accident, status post right non-ST segment myocardial infarction underwent cardiac catheterization and stenting of percutaneous transluminal angioplasty of right coronary artery angioplasty. We will then schedule for percutaneous transluminal angioplasty of left anterior descending and circumflex on next week. The patient is now in transitional care unit for continuity of care. Denies any chest pain. RECOMMENDATIONS: Continue Eliquis because of lower LV function. Continue Cardizem. Continue aspirin. Continue atorvastatin. Continue metoprolol. Continue Plavix. Two days prior to stage PTCA of LAD and circumflex, we will hold Eliquis. We will transfer care tomorrow to Dr. Esdras Ortiz. We will follow with you. We will supplement potassium. Thank you Dr. Rick for providing us the opportunity in taking care of the patient, Keaton Dyson. Ricardo West MD
--- NOTE | 2018-07-21 13:30 | PN ---
DATE: 07/21/2018 SUBJECTIVE: I saw her in the CCU, resting comfortably in bed. She tells me she is eating well, trying physical therapy in good spirits. MEDICATIONS: On Cardizem, Colace, Desyrel, Dilantin, DuoNebs, Ecotrin, Eliquis, Lanoxin, Lasix twice a day, IV Lipitor, Lopressor, oxycodone, Percocet, Plavix and Tylenol. PHYSICAL EXAMINATION: VITAL SIGNS: She has a 97.8 temperature, 82 pulse, 130/76 blood pressure, 18 respiratory rate, 94% O2 sat on room air. HEENT: Head is atraumatic, normocephalic. HEART: Regular rate. LUNGS: Clear to auscultation. ABDOMEN: Soft, obese. EXTREMITIES: The right side is weak, +2/4 pitting edema lower extremity. LABORATORY DATA: She has a 4.9 white count, 11.6 hemoglobin, 36.3 hematocrit with a 299 platelets. Sodium 138, potassium 3.7, BUN 26, creatinine 0.7, GFR is greater than 60, sugar is 99, calcium is 8.7, total bili is 0.4. AST is 35, ALT is 26, alk phos is 205, total protein 6.8. ASSESSMENT AND PLAN: She was seen by Infectious Disease, Cardiology, Psychiatry. She has systemic inflammatory response syndrome, non-ST elevation myocardial infection, asymptomatic bacteria with Enterococcus. Continue physical therapy and I believe she is going back for cardiac cath this . Keaton Rick DO
[2018-07-21] MEDS: Digoxin 250 mcg (0.25 mg) Tab PO SCH (14:02)
[2018-07-22] MEDS: oxyCODONE 30 mg Immediate Release Tab PO SCH ×3 (05:39→22:33)
--- NOTE | 2018-07-22 10:25 | CP.PCM.PCO ---
Physician Communication Note - Physician Communication Note Physician Communication Note: psychiatric team signed off
[2018-07-22] MEDS: diltiaZEM 120 mg/24 Hours CD Cap PO SCH (10:37)
[2018-07-22] MEDS: Tobramycin/Dexamethasone (Tobradex) Opth Sol (2.5 ml) OS SCH ×4 (10:38→22:33)
[2018-07-22] MEDS: Oxycodone/Acetaminophen 10/325 mg Tab PO PRN ×2 (10:46→19:45)
--- NOTE | 2018-07-22 12:01 | PN ---
DATE: 07/22/2018 SUBJECTIVE: She is having some eye issues. I will start her on some TobraDex eyedrops. She has also had some IV access issues. I will change her medicines to p.o. She is on physical therapy still. MEDICATIONS: She is on Cardizem, Colace, Desyrel, Dilantin, DuoNeb, Ecotrin, Eliquis, Lanoxin, Lasix was changed to p.o., Lipitor, Lopressor, oxycodone, Percocet, Plavix, TobraDex eyedrops, and Tylenol. Her eyes are little bit inflamed; could be conjunctivitis. PHYSICAL EXAMINATION: VITAL SIGNS: A 97.4 temperature, 74 pulse, 109/69 blood pressure, 20 respiratory rate, and 98% O2 saturation on room air. HEENT: Head is atraumatic and normocephalic. Eyes are mildly red and inflamed, mild crust. Throat is moist. NECK: Supple. HEART: Regular rate. LUNGS: Decreased breath sounds. ABDOMEN: Soft, morbidly obese, and nontender. EXTREMITIES: Right side is completely flaccid. She has edema in both legs, 2+ pitting edema. She is trying little hard in physical therapy. LABORATORY DATA: She has a 4.9 white count, 11.6 hemoglobin, and 299 platelets. A sodium 138, potassium is 3.7, BUN 26, creatinine 0.7, GFR is greater than 60, and sugar is 79. Calcium is 8.7, total bili is 0.4, AST is 35, ALT is 26, alk phos 205, and total protein 6.8. ASSESSMENT AND PLAN: She is being seen by Cardiology and Infectious Disease. We will continue with aggressive treatment and care. She has few more days of physical therapy . Cardiac catheterization will be taken place with Dr. Ortiz later this week. Then, we have to stop the Plavix today and the aspirin today. We will have to recheck with Dr. Ortiz when he wants to do his next cardiac catheterization on Karis Pugh. Keaton Rick DO MTD
--- NOTE | 2018-07-22 13:37 | PN ---
DATE: 07/22/2018 SUBJECTIVE: The patient is in the TCU, chest pain free. PHYSICAL EXAMINATION: VITAL SIGNS: Stable. NECK: Negative JVD. LUNGS: Without rales. HEART: Reveals S1, S2. EXTREMITIES: Without edema. LABORATORY DATA: Hemoglobin is 11.6. Chemistries; BUN and creatinine unremarkable. IMPRESSION: 1. Status post non-ST elevation myocardial infarction. 2. Multivessel coronary artery disease. 3. Successful percutaneous transluminal coronary angioplasty and stent of multiple lesions in the left anterior descending. 4. History of cerebrovascular accident in the past. 5. Coagulopathy. Given these findings, the patient is currently now on Eliquis, aspirin, and Plavix. We will discontinue the Eliquis today after her last dose. We will schedule the patient for PTCA and stent of an RCA and circumflex artery on . I have discussed this with the patient in detail. Esdras Ortzi MD
[2018-07-22] MEDS: Digoxin 250 mcg (0.25 mg) Tab PO SCH (13:40)
--- NOTE | 2018-07-22 16:51 | PN ---
DATE: 07/22/2018 SUBJECTIVE: The patient is in bed in no acute distress. PHYSICAL EXAMINATION: VITAL SIGNS: On exam, temperature is 97, blood pressure is 115/70, respiratory rate of 16. HEENT: Examination of HEENT is unremarkable. NECK: Supple. LUNGS: Have decreased breath sounds. HEART: Normal S1, S2. ABDOMEN: Soft. LABORATORY DATA: Laboratory examination reviewed. Microbiology is reviewed. ASSESSMENT AND PLAN: 1. A 62-year-old female, was admitted with SIRS (systemic inflammatory response syndrome) secondary to non-ST elevation myocardial infarction, status post cardiac catheterization with Dr. Esdras Ortiz with angioplasty and PTCA and stent in the left anterior descending and two drug-eluting stents with a low ejection fraction. 2. The patient has asymptomatic bacteriuria with Enterococcus. Currently off of antibiotics. She is at risk for developing nosocomial infections. . Santosh Lopez MD
[2018-07-22 17:08] VITALS: RESP 18
[2018-07-23] MEDS: oxyCODONE 30 mg Immediate Release Tab PO SCH ×3 (05:37→21:52)
--- NOTE | 2018-07-23 09:29 | PN ---
DATE: 07/23/2018 CARDIOLOGY FOLLOWUP SUBJECTIVE: The patient is without chest pain. PHYSICAL EXAMINATION VITAL SIGNS: Blood pressure is 115/74, the heart rate is in the 70s. NECK: Negative JVD. LUNGS: Without rales. HEART: S1, S2. EXTREMITIES: Without edema. LABORATORY DATA: Hemoglobin is 11.6, BUN and creatinine are unremarkable. IMPRESSION 1. Multivessel coronary artery disease. 2. [id number] myocardial infarction. 3. Coronary artery disease. 4. History of atrial fibrillation. PLAN: Given these findings, the patient is scheduled for a staged PTCA on Saturday. We will continue the Xarelto and we will continue the Eliquis until today, which should be her last dose. Esdras Ortiz MD
[2018-07-23] MEDS: diltiaZEM 120 mg/24 Hours CD Cap PO SCH (10:12)
[2018-07-23] MEDS: Oxycodone/Acetaminophen 10/325 mg Tab PO PRN ×2 (10:14→17:26)
[2018-07-23] MEDS: Tobramycin/Dexamethasone (Tobradex) Opth Sol (2.5 ml) OS SCH ×4 (10:14→21:54)
--- NOTE | 2018-07-23 10:40 | PN ---
DATE: 07/23/2018 SUBJECTIVE: She is resting comfortably in bed in the Transitional Care Unit. She is trying the physical therapy. She is eating well. She is on Cardizem, Colace, Desyrel, Dilantin, DuoNebs, Ecotrin, Lanoxin, Lasix, Lipitor, Lopressor, oxycodone, Percocet, Plavix, TobraDex and Tylenol. PHYSICAL EXAMINATION VITAL SIGNS: She has a 97.4 temperature, 73 pulse, 115/74 blood pressure, 18 respiratory rate and 97% O2 sat. HEAD: Atraumatic, normocephalic. HEART: Regular rate. LUNGS: Decreased breath sounds but clear. ABDOMEN: Soft, obese. EXTREMITIES: Trace edema bilaterally, +2/4 pitting edema to ankles and right-sided weakness secondary to old CVA. LABORATORY DATA: The labs are for 07/21/2018. She did well. ASSESSMENT AND PLAN: I will order labs for tomorrow. She is going to go for a cardiac catheterization I believe on Saturday with Dr. Ortiz, hopefully she will do well. She is getting physical therapy now in the Transistional Care Unit before she would go home anyway. The patient is awaiting a catheterization with Dr. Esdras Ortiz. Keaton Rick DO
--- NOTE | 2018-07-23 11:40 | PN ---
DATE: 07/23/2018 SUBJECTIVE: The patient is in bed in no acute distress, nontoxic. PHYSICAL EXAMINATION: VITAL SIGNS: Temperature is 97, blood pressure is 115/70, respiratory rate of 18. HEENT: Unremarkable. NECK: Supple. LUNGS: Decreased breath sounds. HEART: Normal S1, S2. ABDOMEN: Soft, nontender. LABORATORY DATA: Examination reveals a white count of 4.9, hemoglobin of 11, BUN of 26, creatinine of 0.7. Microbiology is noted. ASSESSMENT AND PLAN: 1. A 62-year-old who was admitted with systemic inflammatory response syndrome secondary to non-ST elevation myocardial infarction, status post cardiac catheterization with angioplasty and percutaneous transluminal coronary angioplasty to left anterior descending artery and two drug-eluting stents. The patient also found to have low ejection fraction and systolic dysfunction. 2. Asymptomatic bacteriuria with Enterococcus. Currently, the patient is off antibiotics, afebrile, and risk for developing nosocomial infections. Santosh Lopez MD
[2018-07-23] MEDS: Digoxin 250 mcg (0.25 mg) Tab PO SCH (14:00)
[2018-07-24] MEDS ORDERED: oxyCODONE 30 mg Immediate Release Tab PO ONE (06:15)
[2018-07-24] MEDS: oxyCODONE 30 mg Immediate Release Tab PO SCH ×3 (06:20→21:22)
[2018-07-24 06:26] LABS: HEMOGLOBIN 10.9 g/dL (12.0-16.0); MEAN CELL VOLUME 87.8 fl (80.0-105.0); MEAN CORPUSCULAR HEMOGLOBIN 27.3 pg (25.0-35.0); MEAN CORPUSCULAR HGB CONC 31.1 g/dl (31.0-37.0); MEAN PLATELET VOLUME 9.3 fl (7.0-11.0); RED CELL DISTRIBUTION WIDTH 16.2 % (11.5-14.5)
[2018-07-24 07:01] LABS: ALB/GLOB RATIO 0.9 (1.1-1.8); ALBUMIN 3.2 g/dL (3.0-4.8); ALT/SGPT 31 U/L (7-56); AST/SGOT 38 U/L (14-36); BLOOD UREA NITROGEN 31 mg/dL (7-21); CALCIUM 8.2 mg/dL (8.4-10.5); GFR NON-AFRICAN AMERICAN > 60
[2018-07-24] MEDS: Tobramycin/Dexamethasone (Tobradex) Opth Sol (2.5 ml) OS SCH ×4 (10:17→21:23)
[2018-07-24] MEDS: diltiaZEM 120 mg/24 Hours CD Cap PO SCH (10:18)
--- NOTE | 2018-07-24 10:27 | PN ---
DATE: 07/24/2018 SUBJECTIVE: The patient is without complaints. PHYSICAL EXAMINATION: VITAL SIGNS: Stable. NECK: Negative JVD. LUNGS: Without rales. HEART: S1, S2. EXTREMITIES: Without edema. LABORATORY DATA: BUN and creatinine unremarkable. IMPRESSION: 1. Multivessel coronary artery disease. 2. Recent non-ST elevation myocardial infarction. 3. History of cerebrovascular accident. 4. History of percutaneous transluminal coronary angioplasty and stent of the left anterior descending in the past. PLAN: Given these findings, the patient is scheduled for PTCA and stent of the circumflex and RCA in the morning. Esdras Ortiz MD
[2018-07-24] MEDS: Oxycodone/Acetaminophen 10/325 mg Tab PO PRN ×2 (11:15→18:03)
--- NOTE | 2018-07-24 11:58 | PN ---
DATE: 07/24/2018 SUBJECTIVE: She is complaining about her eyes. She is on TobraDex eyedrops. She states it is fully rotated. She want to see an eye doctor, so called the eye doctor to look at her eyes, also she is supposed to go for cardiac catheterization, I believe that in the next 24 hours, her Cardiology Dr. Ortiz. She is on TCU. MEDICATIONS: She is on Cardizem, Colace, Desyrel, Dilantin, DuoNeb, Ecotrin, Eliquis and Lanoxin. Eliquis had been discontinued yesterday. Lasix, Lipitor, Lopressor, oxycodone, Percocet, Plavix, TobraDex eyedrops and Tylenol. PHYSICAL EXAMINATION: VITAL SIGNS: She has a 98.3 temp, 74 pulse, 112/64 blood pressure, 18 respiratory rate and 95% O2 sat on room air. HEENT: Head is atraumatic and normocephalic. HEART: Regular rate. LUNGS: Decreased breath sounds, but clear. ABDOMEN: Soft and obese. EXTREMITIES: The right leg is weak and right side is weak secondary to a stroke, left side has got some edema, not bad. LABORATORY DATA: She has a 5 white count, 10.9 hemoglobin, 35.1 hematocrit with 250 platelets. She has sodium 139, potassium 3.9, BUN 31, creatinine 0.7, GFR is greater than 60, sugar is 84, calcium is 8.2, total bili is 0.2, AST is 38, ALT is 31, alk phos 184, total protein is 6.7 and albumin 3.2. ASSESSMENT AND PLAN: She is being seen by Cardiology, Infectious Disease, multivessel coronary artery disease and [id number] myocardial infarction and atrial fibrillation. Keaton Rick DO
[2018-07-24] MEDS: Digoxin 250 mcg (0.25 mg) Tab PO SCH (14:07)
[2018-07-24 14:08] VITALS: PULSE 72
--- NOTE | 2018-07-24 14:17 | PN ---
DATE: 07/24/2018 SUBJECTIVE: The patient is seen in bed in no acute distress, nontoxic. PHYSICAL EXAMINATION: VITAL SIGNS: On exam, temperature is 98, blood pressure is 111/60, respiratory rate of 60. HEENT: Unremarkable. NECK: Supple. HEART: Normal S1, S2. LUNGS: Have decreased breath sounds. ABDOMEN: Soft. LABORATORY DATA: Reveals a white count of 5, hemoglobin of 10, BUN of 31, creatinine of 0.7. Microbiology is noted. ASSESSMENT AND PLAN: 1. This is a 62-year-old admitted with systemic inflammatory response syndrome secondary to non-ST elevation myocardial infarction, status post cardiac catheterization, angioplasty with two drug-eluting stents and was found to have a low ejection fraction. 2. Asymptomatic bacteriuria with Enterococcus. Currently off antibiotics. The patient is at risk for developing nosocomial infections. Santosh Lopez MD
[2018-07-24 17:07] VITALS: BP 122/72; PULSE 61; TEMP 98.1; O2SAT 96
[2018-07-25] MEDS: oxyCODONE 30 mg Immediate Release Tab PO SCH (05:46)
--- NOTE | 2018-07-25 11:16 | CARDCATH ---
PROCEDURE DATE: 07/25/2018 HISTORY: The patient presents with a non-STEMI, she was found to have triple-vessel CAD. She presents for PTCA of multivessel. PROCEDURE: Left heart catheterization with coronary arteriography, PTCA and stent of an RCA, PTCA of the circumflex artery. The left femoral artery was cannulated with 6-Mongolian sheath. The left femoral vein was cannulated for IV access. There were no complications. I performed moderate sedation which included the presence of an independent trained observer that assisted in monitoring the patient's level of consciousness and physiologic status. After administration of Versed and fentanyl, my intra service time was 60 minutes. Findings on catheterization revealed multiple patent stents in the LAD. The circumflex artery was markedly tortuous with an occluded first obtuse marginal branch as well as disease in the distal vessel. The RCA revealed, it was markedly tortuous and calcified and revealed a 99% stenosis in the midportion as well as 70% stenosis in the proximal portion. The patient was started on intravenous Angiomax on the fluoroscopic guide, the guider was placed in the ostium of the left main artery. Attempts of an opening up the obtuse marginal branch which was chronically occluded was unsuccessful despite multiple attempts. The guider was then exchanged for a right guider which was placed in the ostium of the RCA. Using a guideline of the [facility]. An ATW wire was used to cross the critical lesion. This was followed by a predilatation was a 2.5 balloon throughout the mid RCA. Two stents were placed one in the mid one of the proximal RCA which was both drug-eluting stents. Repeat coronary arteriography revealed an excellent result with no residual stenoses and JUAN III flow. AngioSeal was used to close the left femoral artery site. Manual compression will be used to close the left femoral vein site. Once the IV access was obtained. The patient tolerated the procedure well. In summary, the procedure was successful PTCA and stent of two critical lesions in the RCA with drug-eluting stents. Attempted PTCA of the chronically occluded obtuse marginal branch was unsuccessful. Cardiac catheterization reveals triple-vessel CAD with patent stents in the LAD. Given these findings, the patient will remain on aspirin indefinitely and Plavix for at least a year. The PRU from the last procedure revealed a the patient is therapeutic with Plavix. We will start her Eliquis tomorrow for her chronic DVTs and stop her aspirin once the Eliquis therapeutic levels. Esdras Ortiz MD
--- NOTE | 2018-07-26 01:44 | DS ---
HISTORY OF PRESENT ILLNESS: She is being taken out of TCU and brought to the cardiovascular lab director with Dr. Esdras Ortiz. MEDICATIONS: She is on Cardizem, Colace, Desyrel, Dilantin, DuoNeb, Ecotrin, Lanoxin, Lasix, Lipitor, Lopressor, oxycodone, Percocet, Plavix, TobraDex, and Tylenol. PHYSICAL EXAMINATION: VITAL SIGNS: She has a 98.1 temperature, 61 pulse, 122/72 blood pressure, 18 respiratory rate, and 96% O2 sat. HEENT: Head is atraumatic and normocephalic. HEART: Regular rate. LUNGS: Decreased breath sounds, but clear. ABDOMEN: Soft and obese. EXTREMITIES: +1/4 pitting edema and right-sided weakness. ASSESSMENT AND PLAN: She is going to be getting cardiac catheterization now. I am not sure if she will be sent home or if she will be put back on the 270 section telemetry later. She had systemic inflammatory response syndrome, non-ST elevation myocardial infarction. She is going for cardiac catheterization. She had asymptomatic bacteremia with Enterococcus left the antibiotics. We will see how she does after cardiac catheterization, but she is discharged from Transitional Care Unit. Keaton Rick DO MTDD
== END 2018-07-25 06:57 | disposition short-term general hospital (02) | DRG 281 ==
LOC: TRCU 12:41
PROVIDERS: ADMIT Family Medicine; ATTEND Family Medicine
PROC: F07Z9FZ Gait Training/Functional Ambulation Treatment using Assistive, Adaptive, Supportive or Protective Equipment (ICD-10-PCS; principal; 2018-07-21)
PROC: F07L6ZZ Therapeutic Exercise Treatment of Musculoskeletal System - Lower Back / Lower Extremity (ICD-10-PCS; 2018-07-21)
PROC: F08Z1FZ Dressing Techniques Treatment using Assistive, Adaptive, Supportive or Protective Equipment (ICD-10-PCS; 2018-07-21)
PROC: F07Z5FZ Bed Mobility Treatment using Assistive, Adaptive, Supportive or Protective Equipment (ICD-10-PCS; 2018-07-22)
PROC: F07Z8FZ Transfer Training Treatment using Assistive, Adaptive, Supportive or Protective Equipment (ICD-10-PCS; 2018-07-22)
PROC: F08Z0FZ Bathing/Showering Techniques Treatment using Assistive, Adaptive, Supportive or Protective Equipment (ICD-10-PCS; 2018-07-24)
DX: I21.4 Non-ST elevation (NSTEMI) myocardial infarction (principal); I42.0 Dilated cardiomyopathy; R65.10 Systemic inflammatory response syndrome (SIRS) of non-infectious origin without acute organ dysfunction; I69.351 Hemiplegia and hemiparesis following cerebral infarction affecting right dominant side; R78.81 Bacteremia; B95.2 Enterococcus as the cause of diseases classified elsewhere; I25.10 Atherosclerotic heart disease of native coronary artery without angina pectoris; I11.0 Hypertensive heart disease with heart failure; I50.9 Heart failure, unspecified; I48.91 Unspecified atrial fibrillation; E78.00 Pure hypercholesterolemia, unspecified; E78.5 Hyperlipidemia, unspecified; F32.9 Major depressive disorder, single episode, unspecified; E66.9 Obesity, unspecified; Z68.32 Body mass index [BMI] 32.0-32.9, adult; Z86.718 Personal history of other venous thrombosis and embolism; Z79.01 Long term (current) use of anticoagulants; Z88.0 Allergy status to penicillin

== ENCOUNTER 2018-07-25 06:57 | Inpatient (IN) | payer MEDICARE, BC ==
[2018-07-22 16:37] VITALS: BMI 27.8
[2018-07-25] MEDS ORDERED: Iohexol 350mgl/ml 50 ML ONE (08:35)
[2018-07-25] MEDS ORDERED: Iodixanol 320 MG/ML 100 ML BOTTLE IV ONE (08:35)
[2018-07-25] MEDS ORDERED: Iodixanol 320 MG/ML 200 ML BOTTLE IV ONE (08:35)
[2018-07-25] MEDS ORDERED: Lidocaine 2% Inj (20ml) ONE (08:40)
[2018-07-25] MEDS ORDERED: Midazolam 2 MG/2 ML VIAL ONE ×2 (09:09→09:14)
[2018-07-25] MEDS ORDERED: Sodium Chloride 0.9% 1,000 ML IV SCH (10:15)
[2018-07-25] MEDS ORDERED: Albuterol 0.083% Inhal Sol (2.5 mg/3 mL) UD IH PRN (15:43)
[2018-07-25] MEDS: oxyCODONE 30 mg Immediate Release Tab PO PRN (16:12)
--- NOTE | 2018-07-25 19:15 | CARD ---
APPROVED REPORT Date of service: 07/25/2018 EKG Measurement Heart [id number] <Conclusion> Sinus rhythm with 1st degree AV block with occasional premature ventricular complexes ST & T wave abnormality, consider inferolateral ischemia Abnormal ECG
[2018-07-25] MEDS: Tobramycin/Dexamethasone (Tobradex) Opth Sol (2.5 ml) OS SCH (22:34)
--- NOTE | 2018-07-25 23:43 | CP.PCM.PCO ---
<Huy Miller - Last Filed: 07/25/18 23:40> Addendum Addendum: PGY1 House Doc Note Paged about 12 beats of Vtach on tele monitor however patient asymptomatic and now NSR. Patient was examined, she was sleeping. Current vital signs reviewed, stable. Non-diaphoretic on exam. Heart/Lung exam wnl. Payroll Analyst noticed that patient is s/p cardiac cath today, however, no recent labs for comparison. Will obtain a stat bmp, mag, phos level to ensure no electrolyte abnormalities. If any electrolyte derangements, will replete as needed. No other adjustments to meds at this time. Will monitor. <Ortega Fair - Last Filed: 07/26/18 06:38> Attending/Attestation - Attestation I have personally seen and examined this patient.: No I have fully participated in the care of the patient.: No I have reviewed all pertinent clinical information: No
[2018-07-26] MEDS: Oxycodone/Acetaminophen 10/325 mg Tab PO PRN ×3 (00:04→15:50)
[2018-07-26 00:15] LABS: BLOOD UREA NITROGEN 23 mg/dL (7-21); CALCIUM 8.5 mg/dL (8.4-10.5); GFR NON-AFRICAN AMERICAN > 60
[2018-07-26 07:15] LABS: BASO # 0.02 K/mm3 (0.0-2.0); BASO % 0.3 % (0.0-3.0); EOS # 0.1 (0.0-0.7); EOS % 1.2 % (1.5-5.0); HEMOGLOBIN 11.9 g/dL (12.0-16.0); LYMPH # 1.4 (1.2-3.4); LYMPH % 23.2 % (22.0-35.0); MEAN CORPUSCULAR HEMOGLOBIN 27.5 pg (25.0-35.0); MEAN CORPUSCULAR HGB CONC 31.6 g/dl (31.0-37.0); MONO % 16.1 % (1.0-6.0); RBC 4.32 10^6/uL (3.5-6.1); WHITE BLOOD COUNT 5.9 10^3/uL (4.5-11.0)
[2018-07-26 07:17] LABS: BLOOD UREA NITROGEN 19 mg/dL (7-21); CALCIUM 8.5 mg/dL (8.4-10.5); GFR NON-AFRICAN AMERICAN > 60
[2018-07-26] MEDS: Tobramycin/Dexamethasone (Tobradex) Opth Sol (2.5 ml) OS SCH ×3 (09:16→21:30)
[2018-07-26] MEDS: diltiaZEM 120 mg/24 Hours CD Cap PO SCH (09:17)
[2018-07-26] MEDS: Digoxin 250 mcg (0.25 mg) Tab PO SCH (13:06)
--- NOTE | 2018-07-26 16:59 | PN ---
DATE: 07/26/2018 SUBJECTIVE: She is resting in bed. She is doing a little bit better. She is status post cath and stent placement. Apparently, I just found out that her brace was broken and the physical therapist, Arnie, I believe, was going to fix it and will be back for Saturday and she cannot walk without it, so she is going to be here while I fix this brace because she lives alone and needs a brace to walk. She is on DuoNebs, Cardizem, Colace, Desyrel, Dilantin, Dulcolax, Ecotrin, Eliquis, Lanoxin, Lasix, Lipitor, Lopressor, oxycodone, Percocet, TobraDex, and Tylenol. I believe we will stop the aspirin tomorrow. PHYSICAL EXAMINATION: VITAL SIGNS: 97.8 temperature, 71 pulse, 120/77 blood pressure, 20 respiratory rate, 97% O2 sat on room air. HEENT: Head is atraumatic, normocephalic. HEART: Regular rate. LUNGS: Decreased breath sounds. ABDOMEN: Soft, obese. EXTREMITIES: She has right-sided weakness and footdrop and needs a brace, which is broken. LABORATORY DATA: She has a 5.9 white count, 11.9 hemoglobin, 37.6 hematocrit with 259 platelets. 139 sodium, potassium 3.7, BUN 19, creatinine 0.7, GFR is greater than 60, sugar is 86, calcium is 8.5. ASSESSMENT AND PLAN: She is resting comfortably in bed status post cardiac cath and stent placement. When I can get this brace stick, I will be able to discharge her. The patient has non-ST elevation myocardial infarction, coronary artery disease, cath and stent placed, systemic inflammatory response syndrome, an old cerebrovascular accident with right-sided weakness. Keaton Rick DO
--- NOTE | 2018-07-26 18:28 | PN ---
DATE: 07/26/[address] Esdras Ortiz. SUBJECTIVE: The patient denies any chest pain. No reported groin bleeding. PHYSICAL EXAMINATION: VITAL SIGNS: Blood pressure 105/68, heart rate 69, temperature 97.8, respirations 19. HEENT: Normocephalic. CHEST: Poor air entry bilaterally. HEART: S1 and S2, regular. EXTREMITIES: No groin hematoma. LABORATORY DATA: Today's SMA-7 is within normal limits except for anion gap of 9. Today's hemoglobin and hematocrit are 11.9 and 37.6. White count and platelet count are within normal limits. I did review the cardiac catheterization procedure, which revealed subtotal occlusion of the ramus intermedius artery, patent LAD stents with significant disease of the proximal and mid RCA, and the patient underwent intervention on both RCA lesions. Today's EKG revealed sinus rhythm with first-degree AV block with frequent APCs, consider inferior ischemia. ASSESSMENT: 1. Status post percutaneous coronary intervention to the proximal mid right coronary artery. 2. History of cerebrovascular accident with residual right hemiplegia. 3. History of paroxysmal atrial fibrillation. 4. Cardiomyopathy with severely impaired left ventricular systolic function, ejection fraction estimated at 24% on the most recent echocardiographic study. RECOMMENDATIONS: Continue Cardizem CD at 120 mg once a day, Colace 100 mg t.i.d., Dilantin 100 mg t.i.d., aspirin 81 mg once a day, Eliquis at 5 mg twice a day, Lanoxin 0.25 mg once a day, Lasix 40 mg p.o. twice a day, Lipitor 40 mg once a day, Lopressor 25 mg once a day, and Plavix 75 mg once a day. The patient can be discharged from the cardiac point on Plavix and Eliquis. Alexi Ramsay MD
--- NOTE | 2018-07-26 20:47 | CARD ---
APPROVED REPORT Date of service: 07/26/2018 EKG Measurement Heart [id number] <Conclusion> Sinus rhythm with 1st degree AV block with premature supraventricular beats Intraventricular conduction delay ST & T wave abnormalities Abnormal ECG
[2018-07-26] MEDS: oxyCODONE 30 mg Immediate Release Tab PO PRN (21:36)
[2018-07-27] MEDS: Oxycodone/Acetaminophen 10/325 mg Tab PO PRN ×2 (05:48→14:23)
[2018-07-27 07:37] LABS: HEMOGLOBIN 11.4 g/dL (12.0-16.0); MEAN CELL VOLUME 87.7 fl (80.0-105.0); MEAN CORPUSCULAR HEMOGLOBIN 27.6 pg (25.0-35.0); MEAN CORPUSCULAR HGB CONC 31.5 g/dl (31.0-37.0); MEAN PLATELET VOLUME 10.1 fl (7.0-11.0); RBC 4.13 10^6/uL (3.5-6.1); RED CELL DISTRIBUTION WIDTH 16.1 % (11.5-14.5); WHITE BLOOD COUNT 5.2 10^3/uL (4.5-11.0)
[2018-07-27 07:52] LABS: ALB/GLOB RATIO 0.9 (1.1-1.8); ALBUMIN 3.4 g/dL (3.0-4.8); ALT/SGPT 27 U/L (7-56); AST/SGOT 31 U/L (14-36); BLOOD UREA NITROGEN 21 mg/dL (7-21); CALCIUM 8.5 mg/dL (8.4-10.5); GFR NON-AFRICAN AMERICAN > 60
[2018-07-27] MEDS: diltiaZEM 120 mg/24 Hours CD Cap PO SCH (10:16)
[2018-07-27] MEDS: Tobramycin/Dexamethasone (Tobradex) Opth Sol (2.5 ml) OS SCH ×4 (10:29→22:18)
[2018-07-27] MEDS: POLYETHYLENE GLYCOL 3350 17 GM/Dose PACKET PO SCH (12:31)
[2018-07-27] MEDS: Digoxin 250 mcg (0.25 mg) Tab PO SCH (14:15)
--- NOTE | 2018-07-27 17:20 | PN ---
DATE: 07/27/2018 SUBJECTIVE: She is resting comfortably in bed. She is feeling better than when she came in. We waiting for the brace to be fixed by, I believe, the name is Arnie from Physical Therapy; that is what she tells me. She needs a brace so that she get around and walk. She is doing better. She is status post NSTEMI, coronary artery disease, cath and stent placement, SIRS. She has got an old cerebrovascular accident with right sided weakness and right footdrop, that is whey she needs the brace and the support. PHYSICAL EXAMINATION: VITAL SIGNS: She is 97.7 temperature, 71 pulse, 107/69 blood pressure, 18 respiratory rate, 97% O2 sat on room air. GENERAL: She lives at home alone. HEENT: Head is atraumatic, normocephalic. HEART: Regular rate. LUNGS: Decreased breath sounds. ABDOMEN: Soft, obese. EXTREMITIES: Trace edema to +1/4 and right-sided weakness. MEDICATIONS: She is on DuoNebs, Cardizem, Colace, Desyrel, Dilantin, Eliquis, Lanoxin, Lasix, Lipitor, Lopressor, oxycodone, Percocet, Plavix, TobraDex, and Tylenol. LABORATORY DATA: She has a 139 sodium, potassium 3.6, BUN 21, creatinine 0.7, GFR is greater than 60, sugar is 88, calcium is 8.5, total bili is 0.4, AST is 31, ALT is 27, alk phos 26, total protein 7. White count is 5.2, hemoglobin 11.4, hematocrit 36.2, platelets 274. ASSESSMENT AND PLAN: She is being seen by Cardiology and need her to get the brace fixed, so that she can go home, that is what I am waiting for, otherwise she cannot walk. Hopefully I will get this done by tomorrow; that is my plan. I will discharge her home tomorrow once I have the brace Keaton Rick DO TOSIN
[2018-07-27] MEDS: oxyCODONE 30 mg Immediate Release Tab PO PRN (20:20)
[2018-07-28] MEDS: Oxycodone/Acetaminophen 10/325 mg Tab PO PRN ×2 (04:10→14:55)
[2018-07-28 04:35] VITALS: RESP 20
[2018-07-28 05:57] VITALS: O2SAT 100
--- NOTE | 2018-07-28 07:00 | PN ---
DATE: 07/27/2018 SUBJECTIVE: The patient denies any chest pain. No reports of bleeding. PHYSICAL EXAMINATION: VITAL SIGNS: Blood pressure 107/69, heart rate 59, temperature 97.9, respirations 19. HEENT: Normocephalic. CHEST: Clear. HEART: S1, S2. Regular. EXTREMITIES: Right hemiplegia. LABORATORY DATA: Today's SMA-7 is within normal limits. Today's hemoglobin and hematocrit 11.4 and 36.2. White count and platelet count are within normal limits. Yesterday's EKG revealed sinus rhythm with first-degree AV block, nonspecific intraventricular conduction delay and nonspecific ST-T wave changes. ASSESSMENT: 1. Status post percutaneous coronary intervention through the proximal and mid right coronary artery. 2. History of cerebrovascular accident with residual right hemiplegia. 3. Paroxysmal atrial fibrillation. 4. Ischemic cardiomyopathy. RECOMMENDATIONS: Continue Cardizem CD 120 mg daily, Colace 100 mg t.i.d., Dilantin 100 mg t.i.d., Eliquis 5 mg twice a day, Lanoxin 0.25 mg once a day, Lasix 40 mg p.o. twice a day, Lipitor 40 mg once a day, Plavix 75 mg once a day. Alexi Ramsay MD
[2018-07-28 07:34] LABS: HEMOGLOBIN 11.2 g/dL (12.0-16.0); MEAN CELL VOLUME 87.1 fl (80.0-105.0); MEAN CORPUSCULAR HEMOGLOBIN 27.8 pg (25.0-35.0); MEAN CORPUSCULAR HGB CONC 31.9 g/dl (31.0-37.0); RBC 4.03 10^6/uL (3.5-6.1); RED CELL DISTRIBUTION WIDTH 15.9 % (11.5-14.5); WHITE BLOOD COUNT 4.8 10^3/uL (4.5-11.0)
[2018-07-28 08:05] LABS: ALB/GLOB RATIO 0.9 (1.1-1.8); ALBUMIN 3.1 g/dL (3.0-4.8); ALT/SGPT 29 U/L (7-56); AST/SGOT 37 U/L (14-36); BLOOD UREA NITROGEN 22 mg/dL (7-21); CALCIUM 8.6 mg/dL (8.4-10.5); GFR NON-AFRICAN AMERICAN > 60
[2018-07-28] MEDS: diltiaZEM 120 mg/24 Hours CD Cap PO SCH (10:25)
[2018-07-28] MEDS: POLYETHYLENE GLYCOL 3350 17 GM/Dose PACKET PO SCH (10:28)
[2018-07-28] MEDS: Tobramycin/Dexamethasone (Tobradex) Opth Sol (2.5 ml) OS SCH (10:29)
[2018-07-28] MEDS: oxyCODONE 30 mg Immediate Release Tab PO PRN (10:40)
[2018-07-28] MEDS: Digoxin 250 mcg (0.25 mg) Tab PO SCH (15:02)
[2018-07-28 15:04] VITALS: PULSE 66
[2018-07-28 17:46] VITALS: BP 125/77; PULSE 72; TEMP 98.1
--- NOTE | 2018-07-29 01:59 | DS ---
HISTORY OF PRESENT ILLNESS: She came in for a procedure. I was trying to discharge her each day. The problem is I am told that they do not have the brace. Somebody took her brace away that she needs to walk with because it was broken. The patient tells me it is being brought back today. I am discharging her home today. This is an extended recovery. She is on albuterol, Cardizem, Colace, Desyrel, Dilantin, Eliquis, Lanoxin, Lasix, Lipitor, Lopressor, MiraLax, oxycodone, Plavix, tobramycin, and Tylenol. PHYSICAL EXAMINATION: VITAL SIGNS: She has a 98.4 temperature, 63 pulse, 102/60 blood pressure, 20 respiratory rate, and 100% O2 saturation. HEENT: Head is atraumatic and normocephalic. HEART: Regular rate. LUNGS: Decreased breath sounds, but clear. ABDOMEN: Soft, morbidly obese, and nontender; has good bowel sounds. EXTREMITIES: Trace edema. The right side is weak from the stroke. She has a brace and the foot brace, so she can walk, and that is how she gets around her apartment with her cane. If she does not have that she cannot be independent. LABORATORY DATA: She has a 140 sodium, potassium 3.6, BUN 22, creatinine 0.7, GFR is greater than 60, sugar is 84. Calcium is 8.6, total bili is 0.3, AST is 37, ALT is 29, alk phos is 189, and total protein is 6.8. White count is 4.8, hemoglobin 11.2, hematocrit 35.1, and platelets are 271. ASSESSMENT AND PLAN: She was here for a [id number] myocardial infarction, coronary artery disease, catheter and stent, severe acute respiratory syndrome, an old cerebrovascular accident with right weakness, and now we will have to get her braces back for the right leg so that she can get around at home, that is what we have been waiting for, for the past 24-48 hours. She was told that it would be brought back to her today. I am putting a discharging home with braces in. Keaton Rick, DO [facility] # [id number]
== END 2018-07-28 18:32 | disposition home health service (06) | DRG 246 ==
LOC: CATH 06:57 → 2RSO 10:36 → CATH 07-26 07:00 → 2RSO 07-27 17:05
PROVIDERS: ADMIT Family Medicine; ATTEND Family Medicine
PROC: 027035Z Dilation of Coronary Artery, One Artery with Two Drug-eluting Intraluminal Devices, Percutaneous Approach (ICD-10-PCS; principal; 2018-07-25)
PROC: 4A023N7 Measurement of Cardiac Sampling and Pressure, Left Heart, Percutaneous Approach (ICD-10-PCS; 2018-07-25)
PROC: B2111ZZ Fluoroscopy of Multiple Coronary Arteries using Low Osmolar Contrast (ICD-10-PCS; 2018-07-25)
PROC: B2151ZZ Fluoroscopy of Left Heart using Low Osmolar Contrast (ICD-10-PCS; 2018-07-25)
DX: I21.4 Non-ST elevation (NSTEMI) myocardial infarction (principal); J12.81 Pneumonia due to SARS-associated coronavirus; I69.351 Hemiplegia and hemiparesis following cerebral infarction affecting right dominant side; I47.2 Ventricular tachycardia; I25.10 Atherosclerotic heart disease of native coronary artery without angina pectoris; I25.5 Ischemic cardiomyopathy; I48.0 Paroxysmal atrial fibrillation; Z95.5 Presence of coronary angioplasty implant and graft